=== PATIENT | male | born 1945 | race American Indian/Alaskan Native ===

== ENCOUNTER 2019-09-17 08:04 | Observation (INO) | payer MEDICARE ==
[2019-09-17 08:44] LABS: Basophils % (Auto) 0.3 % (0.0-1.8); Eosinophils % (Auto) 0.2 % (0.0-4.3); Hematocrit 36.3 % (35.5-45.6); Hemoglobin 12.3 gm/dl (11.8-15.2); Lymphocytes # (Auto) 0.5 K/mm3 (1.2-5.4); Lymphocytes % (Auto) 5.8 % (13.4-35.0); Mean Corpuscular HGB Conc 34 % (32-34); Mean Corpuscular Volume 91 fl (84-94); Monocytes # (Auto) 0.9 K/mm3 (0.0-0.8); Monocytes % (Auto) 9.4 % (0.0-7.3); Platelet Count 196 K/mm3 (140-440); Red Blood Count 3.98 M/mm3 (3.65-5.03); Red Cell Distribution Width 17.3 % (13.2-15.2)
[2019-09-17 08:54] LABS: Partial Thromboplastin Time 27.5 Sec. (24.2-36.6)
[2019-09-17 09:01] LABS: Calcium 8.7 mg/dL (8.4-10.2)
--- NOTE | 2019-09-17 09:14 | Emergency Department Report ---
ED Chest Pain HPI - General Chief Complaint: Chest Pain Stated Complaint: CHEST PAIN/N/V Time Seen by Provider: 09/17/19 08:18 Source: patient, EMS Mode of arrival: Stretcher Limitations: No Limitations - History of Present Illness Initial Comments: 73-year-old -Dutch male patient with history of WA with stent placement, open-heart surgery, kidney disease, attention, and gastric ulcers presents to the ED with complaints of coffee ground emesis and chest pain last night. Patient states vomiting started with vomiting of food contents and after several episodes of emesis began coughing up coffee ground emesis and having left sided chest pain. Patient has history of open heart surgery 3 months ago per patient. His medication nurse is Dr. Parmar, [facility]. Patient also states history of recurrent bleeding gastric ulcerspatient is unsure of GI specialist name. She states pain is a 9 out of 10 in severity and describes it as feeling like pressure and someone stepping on his chest. Patient also admits to epigastric pain and black appearing stools. Patient is on Coumadin and admits to taking ibuprofen daily MD Complaint: chest pain -: Sudden Onset: during rest Pain Location: left chest Pain Radiation: none Severity scale (0 -10): 9 Quality: pressure Consistency: constant Improves With: nothing Worsens With: nothing re: nausea, vomting. denies: dyspnea Other Symptoms: denies: cough, fever, syncope, palpitations Treatments Prior to Arrival: none - Related Data Allergies Allergy/AdvReac Type Severity Reaction Status Date / Time codeine Allergy Rash Verified 09/17/19 08:19 tramadol Allergy Rash Verified 09/17/19 08:19 Heart Score - HEART Score History: Moderately suspicious EKG: Non-specific Age: > 65 Risk factors: > 3 risk factors or hx of atherosclerotic disease Troponin: < normal limit HEART Score: 6 - Critical Actions Critical Actions: 4-6 pts:12-16.6% risk of adverse cardiac event. Should be admitted ED Review of Systems ROS: Stated complaint: CHEST PAIN/N/V Other details as noted in HPI Comment: All other systems reviewed and negative Constitutional: see HPI Eyes: denies: vision change ENT: denies: throat pain Respiratory: denies: cough, shortness of breath, SOB with exertion, SOB at rest, wheezing Cardiovascular: as per HPI, chest pain. denies: palpitations, syncope Gastrointestinal: as per HPI. denies: diarrhea Skin: denies: rash, lesions Neurological: denies: headache, weakness Psychiatric: as per HPI ED Past Medical Hx - Past Medical History Previous Medical History?: Yes Hx Hypertension: Yes Hx Heart Attack/AMI: Yes Additional medical history: gastric ulcer. ETOH - Surgical History Past Surgical History?: Yes Hx Open Heart Surgery: Yes (CABG (May 2019 @ [place])) Additional Surgical History: Neck surgery - Social History Smoking Status: Never Smoker Substance Use Type: Alcohol ED Physical Exam - General Limitations: No Limitations General appearance: alert, in no apparent distress - Head Head exam: Present: atraumatic, normocephalic - Eye Eye exam: Present: normal appearance - ENT ENT exam: Present: mucous membranes moist - Neck Neck exam: Present: normal inspection - Respiratory Respiratory exam: Present: normal lung sounds bilaterally. Absent: respiratory distress - Cardiovascular Cardiovascular Exam: Present: regular rate, normal rhythm, normal heart sounds. Absent: systolic murmur, diastolic murmur, rubs, gallop - GI/Abdominal GI/Abdominal exam: Present: soft, tenderness (epigastric), normal bowel sounds. Absent: distended, guarding, rebound, rigid, diminished bowel sounds - Rectal Rectal exam: Present: heme (+) stool. Absent: black stool, bloody stool, mass - Extremities Exam Extremities exam: Absent: tenderness, pedal edema, calf tenderness - Neurological Exam Neurological exam: Present: alert, oriented X3 - Psychiatric Psychiatric exam: Present: normal affect, normal mood - Skin Skin exam: Present: warm, dry, intact, normal color. Absent: rash ED Course Vital Signs 09/17/19 09/17/19 09/17/19 08:13 08:30 09:01 Temperature 97.6 F Pulse Rate 83 77 74 Respiratory 20 11 L 14 Rate Blood Pressure 181/82 182/81 160/86 O2 Sat by Pulse 97 100 100 Oximetry 09/17/19 09/17/19 09:31 10:00 Temperature Pulse Rate 77 Respiratory 12 Rate Blood Pressure 173/76 158/82 O2 Sat by Pulse 99 99 Oximetry ED Medical Decision Making - Lab Data Result diagrams: 09/17/19 08:31 09/17/19 08:37 Lab Results 09/17/19 09/17/19 09/17/19 Range/Units 08:31 08:31 08:37 WBC 9.3 (4.5-11.0) K/mm3 RBC 3.98 (3.65-5.03) M/mm3 Hgb 12.3 (11.8-15.2) gm/dl Hct 36.3 (35.5-45.6) % MCV 91 (84-94) fl MCH 31 (28-32) pg MCHC 34 (32-34) % RDW 17.3 H (13.2-15.2) % Plt Count 196 (140-440) K/mm3 Lymph % (Auto) 5.8 L (13.4-35.0) % [place] % (Auto) 9.4 H (0.0-7.3) % Eos % (Auto) 0.2 (0.0-4.3) % Baso % (Auto) 0.3 (0.0-1.8) % Lymph # 0.5 L (1.2-5.4) K/mm3 [place] # 0.9 H (0.0-0.8) K/mm3 Eos # 0.0 (0.0-0.4) K/mm3 Baso # 0.0 (0.0-0.1) K/mm3 Seg Neutrophils % 84.3 H (40.0-70.0) % Seg Neutrophils # 7.9 H (1.8-7.7) K/mm3 PT 12.9 (12.2-14.9) Sec. INR 1.00 (0.87-1.13) APTT 27.5 (24.2-36.6) Sec. Sodium 134 L (137-145) mmol/L Potassium 4.0 (3.6-5.0) mmol/L Chloride 94.8 L (98-107) mmol/L Carbon Dioxide 25 (22-30) mmol/L Anion Gap 18 mmol/L BUN 34 H (9-20) mg/dL Creatinine 1.7 H (0.8-1.5) mg/dL Estimated GFR 48 ml/min BUN/Creatinine Ratio 20 % Glucose 138 H (75-100) mg/dL Calcium 8.7 (8.4-10.2) mg/dL Total Bilirubin 0.70 (0.1-1.2) mg/dL AST 59 H (5-40) units/L ALT 45 (7-56) units/L Alkaline Phosphatase 57 (35-129) units/L Troponin T 0.014 (0.00-0.029) ng/mL Total Protein 7.2 (6.3-8.2) g/dL Albumin 4.0 (3.9-5) g/dL Albumin/Globulin Ratio 1.3 % Lipase 33 (13-60) units/L - Radiology Data Radiology results: report reviewed CHEST 2 VIEWS INDICATION / CLINICAL INFORMATION: left sided chest pain. COMPARISON: None available. FINDINGS: SUPPORT DEVICES: None. HEART / MEDIASTINUM: Sternotomy and CABG. Cardiac silhouette is normal in size. LUNGS / PLEURA: No significant pulmonary or pleural abnormality. No pneumothorax. ADDITIONAL FINDINGS: No significant additional findings. IMPRESSION: 1. No acute findings. - Medical Decision Making Patient here for chest pain and coffee-ground emesis. History of WA and open heart surgery 3 months ago per patient. Cassandra Developer is Dr. Parmar from [place]. Initial and repeat EKG are without acute findings. Initial troponin normal. Hemoglobin is normal. INR is below therapeutic level. Positive fecal occult with brown stools. No vomiting observed during visit today. Heart score is 6. Patient with Dr. Car, hospitalistpatient is to be admitted for further evaluation. Critical care attestation.: If time is entered above; I have spent that time in minutes in the direct care of this critically ill patient, excluding procedure time. ED Disposition Clinical Impression: Coffee ground emesis Chest pain Qualifiers: Chest pain type: other chest pain Qualified Code(s): R07.89 - Other chest pain; R07.8 - Other chest pain Disposition: 09 OP ADMIT IP TO THIS HOSP Is pt being admited?: Yes Condition: Stable Instructions: Chest Pain (ED) Referrals: PRIMARY CARE, [Primary Care Provider] - 3-5 Days
--- NOTE | 2019-09-17 09:18 | XRay Report ---
CHEST 2 VIEWS INDICATION / CLINICAL INFORMATION: left sided chest pain. COMPARISON: None available. FINDINGS: SUPPORT DEVICES: None. HEART / MEDIASTINUM: Sternotomy and CABG. Cardiac silhouette is normal in size. LUNGS / PLEURA: No significant pulmonary or pleural abnormality. No pneumothorax. ADDITIONAL FINDINGS: No significant additional findings. IMPRESSION: 1. No acute findings. Signer Name: Jayden Nickerson MD Signed: 09/17/2019 9:14 AM Workstation Name: [id number]
[2019-09-17] MEDS ORDERED: MORPHINE 2 MG/1 ML INJ IV PRN (11:19)
[2019-09-17] MEDS ORDERED: ACETAMINOPHEN 325 MG TAB PO PRN (11:19)
[2019-09-17] MEDS ORDERED: ONDANSETRON 4 MG/2 ML INJ IV PRN (11:19)
--- NOTE | 2019-09-17 11:24 | History and Physical Report ---
History of Present Illness Date of admission: 09/17/19 10:45 Chief complaint: Coffee-ground emesis History of present illness: 73-year-old man with history of DE status post stent status post CABG, chronic kidney disease, peptic ulcer disease who presents to the hospital with coffee- ground emesis and chest pain x1 day. He admits to getting drunk on tuesday, then became extremely nauseas and had 7 episodes of coffee-ground emesis associated with left-sided chest pain, Chest pain was substernal, left sided and non radiating, began after a few episodes of vomiting, /. cp has now resolved . CABG was about 3 months ago at [facility]. He has history of bleeding gastric ulcers for which he follows up with a die welder. Admits that he had quit drinking for 15 years, then started sipping a month ago due to stress, and then finally got drunk on Tuesday. -he is c/o periumbilical abdominal pain, which is burning in nature. He denies nausea at present. 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 Family history; heart disease Medications and Allergies Allergies Allergy/AdvReac Type Severity Reaction Status Date / Time codeine Allergy Rash Verified 09/17/19 08:19 tramadol Allergy Rash Verified 09/17/19 08:19 Home Medications Medication Instructions Recorded Confirmed Last Taken Type Aspirin [Aspirin BABY CHEW TAB] 81 mg PO QDAY 09/17/19 09/17/19 09/17/19 History Losartan/Hydrochlorothiazide 1 each PO QDAY 09/17/19 09/17/19 09/17/19 History [Losartan-Hctz 100-25 mg Tab] Metoprolol Xl [Metoprolol 100 mg PO QDAY 09/17/19 09/17/19 09/17/19 History SUCCINATE ER TAB] Pantoprazole [Protonix TAB] 20 mg PO QDAY 09/17/19 09/17/19 09/17/19 History Warfarin [Coumadin] 10 mg PO QDAY 09/17/19 09/17/19 09/15/19 History amLODIPine [Norvasc] 10 mg PO DAILY 09/17/19 09/17/19 09/17/19 History Review of Systems All systems: negative Constitutional: anorexia Ears, nose, mouth and throat: no ear pain Cardiovascular: chest pain Respiratory: no cough Gastrointestinal: abdominal pain, nausea, vomiting, coffee ground emesis, no diarrhea Genitourinary Male: no dysuria Rectal: no pain Musculoskeletal: no neck stiffness Integumentary: no rash Neurological: no head injury Psychiatric: no anxiety Endocrine: no cold intolerance Hematologic/Lymphatic: no easy bruising Allergic/Immunologic: no urticaria Exam - Constitutional Vitals: Temp Pulse Resp BP Pulse Ox 97.6 F 77 12 158/82 99 09/17/19 08:13 09/17/19 09:31 09/17/19 09:31 09/17/19 10:00 09/17/19 10:00 General appearance: Present: no acute distress, well-nourished, disheveled - EENT Eyes: Present: PERRL ENT: hearing intact, clear oral mucosa - Neck Neck: Present: supple, normal ROM - Respiratory Respiratory effort: normal Respiratory: bilateral: CTA - Cardiovascular Heart Sounds: Present: S1 & S2. Absent: rub, click - Extremities Extremities: pulses symmetrical, No edema Peripheral Pulses: within normal limits - Abdominal General gastrointestinal: Present: soft, tender (epigastrium), non-distended, normal bowel sounds Male genitourinary: Present: normal - Integumentary Integumentary: Present: clear, warm, dry - Musculoskeletal Musculoskeletal: gait normal, strength equal bilaterally - Psychiatric Psychiatric: appropriate mood/affect, intact judgment & insight - Neurologic Neurologic: CNII-XII intact, moves all extremities Results - Labs CBC & Chem 7: 09/17/19 08:31 09/17/19 08:37 Labs: Laboratory Last Values WBC 9.3 K/mm3 (4.5-11.0) 09/17/19 08:31 RBC 3.98 M/mm3 (3.65-5.03) 09/17/19 08:31 Hgb 12.3 gm/dl (11.8-15.2) 09/17/19 08:31 Hct 36.3 % (35.5-45.6) 09/17/19 08:31 MCV 91 fl (84-94) 09/17/19 08:31 MCH 31 pg (28-32) 09/17/19 08:31 MCHC 34 % (32-34) 09/17/19 08:31 RDW 17.3 % (13.2-15.2) H 09/17/19 08:31 Plt Count 196 K/mm3 (140-440) 09/17/19 08:31 Lymph % (Auto) 5.8 % (13.4-35.0) L 09/17/19 08:31 [place] % (Auto) 9.4 % (0.0-7.3) H 09/17/19 08:31 Eos % (Auto) 0.2 % (0.0-4.3) 09/17/19 08:31 Baso % (Auto) 0.3 % (0.0-1.8) 09/17/19 08:31 Lymph # 0.5 K/mm3 (1.2-5.4) L 09/17/19 08:31 [place] # 0.9 K/mm3 (0.0-0.8) H 09/17/19 08:31 Eos # 0.0 K/mm3 (0.0-0.4) 09/17/19 08:31 Baso # 0.0 K/mm3 (0.0-0.1) 09/17/19 08:31 Seg Neutrophils % 84.3 % (40.0-70.0) H 09/17/19 08:31 Seg Neutrophils # 7.9 K/mm3 (1.8-7.7) H 09/17/19 08:31 PT 12.9 Sec. (12.2-14.9) 09/17/19 08:31 INR 1.00 (0.87-1.13) 09/17/19 08:31 APTT 27.5 Sec. (24.2-36.6) 09/17/19 08:31 Sodium 134 mmol/L (137-145) L 09/17/19 08:37 Potassium 4.0 mmol/L (3.6-5.0) 09/17/19 08:37 Chloride 94.8 mmol/L (98-107) L 09/17/19 08:37 Carbon Dioxide 25 mmol/L (22-30) 09/17/19 08:37 Anion Gap 18 mmol/L 09/17/19 08:37 BUN 34 mg/dL (9-20) H 09/17/19 08:37 Creatinine 1.7 mg/dL (0.8-1.5) H 09/17/19 08:37 Estimated GFR 48 ml/min 09/17/19 08:37 BUN/Creatinine Ratio 20 % 09/17/19 08:37 Glucose 138 mg/dL (75-100) H 09/17/19 08:37 Calcium 8.7 mg/dL (8.4-10.2) 09/17/19 08:37 Total Bilirubin 0.70 mg/dL (0.1-1.2) 09/17/19 08:37 AST 59 units/L (5-40) H 09/17/19 08:37 ALT 45 units/L (7-56) 09/17/19 08:37 Alkaline Phosphatase 57 units/L (35-129) 09/17/19 08:37 Troponin T 0.014 ng/mL (0.00-0.029) 09/17/19 08:37 Total Protein 7.2 g/dL (6.3-8.2) 09/17/19 08:37 Albumin 4.0 g/dL (3.9-5) 09/17/19 08:37 Albumin/Globulin Ratio 1.3 % 09/17/19 08:37 Lipase 33 units/L (13-60) 09/17/19 08:37 Assessment and Plan Assessment and plan: 73-year-old man with history of CAD status post stents and CABG in May of this year who presents with 7 episodes of coffee-ground emesis. Patient has known history of peptic ulcer disease and has had GI bleed in the past. He also complained of chest pain which began after vomiting. Labs reviewed, CBC unremarkable, coags unremarkable. Chemistry shows sodium of 134 BUN of 34 and creatinine of 1.7 AST of 59. Chest x-ray no acute findings Coffee-ground emesis/upper GI bleed Hemoglobin stable, given history of peptic ulcer disease we will treat with PPI, GI consult suspect bleeding ulcer -Patient advised to abstain from alcohol -Keep n.p.o. for now. Aspirin and warfarin on hold. Essential medications converted to IV Chest pain, hx of CAd sp stent and cabg on warfarin ( has been on warfarin since his cabg Likely esophageal irritation from multiple episodes of vomiting, may also be esophageal tear. Given history of CAD with CABG and stents, cardiology consulted Troponin negative so far, follow-up serial troponins Chronic kidney disease, stage II-III Nephrology consult, avoid nephrotoxins Alcohol abuse Preventative health counseling performed for 17 minutes DVT prophylaxis SCDs and early ambulation, in light of suspected GI bleed, warfarin and asa on hold Advance Directives: Yes VTE prophylaxis?: Mechanical Plan of care discussed with patient/family: Yes
[2019-09-17] MEDS ORDERED: PANTOPRAZOLE 40 MG INJ IV SCH ×2 (12:30→22:00)
--- NOTE | 2019-09-17 12:45 | Gastroenterology Consultation ---
History of Present Illness - Reason for Consult Consult date: 09/17/19 coffee-ground emesis Requesting physician: ALEJANDRO RICO - History of Present Illness Patient is a 73 y/o male with PMH of HTN, WI/CAD (s/p CABG 05/2019 at [place]), CKD, and PUD who got drunk on Tuesday (remote hx of ETOH abuse; quit drinking for 15 yrs but started back drinking ~1 month ago due to stress) then developed N/V yesterday with emesis initially being brown in color and then turned dark black. He also c/o associated CP, epigastric pain and dark stool. GI has been consulted for coffee-ground emesis. Cardiology consult pending. This afternoon patient was resting in bed w/o acute distress. Reports feeling better with symptoms now improving and no further N/V. Denies fever, SOB, wt loss, hematemesis, dysphagia/odynophagia, diarrhea, constipation, or hematochezia. Has a hx of recurrent PUD with last EGD approximately in April of this year at [place] per pt. No hx of liver disease. Takes daily ASA, coumadin, and possibly an iron supplement at home. He also had been recently taking Ibuprofen. Past History Past Medical History: other (as per HPI) Past Surgical History: CABG, Other (neck surgery) Social history: other (alcohol). denies: smoking Family history: CAD Medications and Allergies Allergies Allergy/AdvReac Type Severity Reaction Status Date / Time codeine Allergy Rash Verified 09/17/19 08:19 tramadol Allergy Rash Verified 09/17/19 08:19 Home Medications Medication Instructions Recorded Confirmed Last Taken Type Aspirin [Aspirin BABY CHEW TAB] 81 mg PO QDAY 09/17/19 09/17/19 09/17/19 History Losartan/Hydrochlorothiazide 1 each PO QDAY 09/17/19 09/17/19 09/17/19 History [Losartan-Hctz 100-25 mg Tab] Metoprolol Xl [Metoprolol 100 mg PO QDAY 09/17/19 09/17/19 09/17/19 History SUCCINATE ER TAB] Pantoprazole [Protonix TAB] 20 mg PO QDAY 09/17/19 09/17/19 09/17/19 History Warfarin [Coumadin] 10 mg PO QDAY 09/17/19 09/17/19 09/15/19 History amLODIPine [Norvasc] 10 mg PO DAILY 09/17/19 09/17/19 09/17/19 History Active Meds: Active Medications Acetaminophen (Tylenol) 650 mg PO Q4H PRN PRN Reason: Pain MILD(1-3)/Fever >100.5/V[place]SQUEZ Dextrose/Sodium Chloride (D5/0.45ns) 1,000 mls @ 100 mls/hr IV DIRECT RONNY Morphine Sulfate (Morphine) 2 mg IV Q4H PRN PRN Reason: Pain, Moderate (4-6) Ondansetron HCl (Zofran) 4 mg IV Q8H PRN PRN Reason: Nausea And Vomiting Pantoprazole Sodium (Protonix) 40 mg IV QDAY RONNY Sodium Chloride (Sodium Chloride Flush Syringe 10 Ml) 10 ml IV BID RONNY Sodium Chloride (Sodium Chloride Flush Syringe 10 Ml) 10 ml IV PRN PRN PRN Reason: LINE FLUSH medications reviewed/updated as required Review of Systems - Review of Systems All systems: negative Cardiovascular: chest pain (substernal) Gastrointestinal: abdominal pain, nausea, vomiting, coffee ground emesis, other (dark stool) Exam - Constitutional Vital Signs: Temp Pulse Resp BP Pulse Ox 97.6 F 75 18 155/81 97 09/17/19 08:13 09/17/19 11:30 09/17/19 11:30 09/17/19 11:30 09/17/19 11:30 General appearance: no acute distress - EENT Eyes: PERRL, EOM intact ENT: hearing intact - Respiratory Respiratory effort: normal - Cardiovascular Rhythm: regular - Gastrointestinal General gastrointestinal: Present: soft, non-tender, non-distended, normal bowel sounds Rectal Exam: other (dark brown stool- supervisor claims present during exam (Shanthi CLANCY)) - Neurologic Neurological: alert and oriented x3 - Labs CBC & Chem 7: 09/17/19 08:31 09/17/19 08:37 Lab Results: Laboratory Results - last 24 hr 09/17/19 09/17/19 09/17/19 08:31 08:31 08:37 WBC 9.3 RBC 3.98 Hgb 12.3 Hct 36.3 MCV 91 MCH 31 MCHC 34 RDW 17.3 H Plt Count 196 Lymph % (Auto) 5.8 L [place] % (Auto) 9.4 H Eos % (Auto) 0.2 Baso % (Auto) 0.3 Lymph # 0.5 L [place] # 0.9 H Eos # 0.0 Baso # 0.0 Seg Neutrophils % 84.3 H Seg Neutrophils # 7.9 H PT 12.9 INR 1.00 APTT 27.5 Sodium 134 L Potassium 4.0 Chloride 94.8 L Carbon Dioxide 25 Anion Gap 18 BUN 34 H Creatinine 1.7 H Estimated GFR 48 BUN/Creatinine Ratio 20 Glucose 138 H Calcium 8.7 Total Bilirubin 0.70 AST 59 H ALT 45 Alkaline Phosphatase 57 Troponin T 0.014 Total Protein 7.2 Albumin 4.0 Albumin/Globulin Ratio 1.3 Lipase 33 09/17/19 11:59 WBC RBC Hgb Hct MCV MCH MCHC RDW Plt Count Lymph % (Auto) [place] % (Auto) Eos % (Auto) Baso % (Auto) Lymph # [place] # Eos # Baso # Seg Neutrophils % Seg Neutrophils # PT INR APTT Sodium Potassium Chloride Carbon Dioxide Anion Gap BUN Creatinine Estimated GFR BUN/Creatinine Ratio Glucose Calcium Total Bilirubin AST ALT Alkaline Phosphatase Troponin T < 0.010 Total Protein Albumin Albumin/Globulin Ratio Lipase Assessment and Plan 1.UGIB/coffee-ground emesis 2.substernal CP/epigastric pain 3.H/o recurrent PUD 4.ETOH 5.CAD (s/p CABG 05/2019) 6.CKD -afebrile -WBC and H/H WNL (12.3/36.3) -INR 1.00, plt WNL -patient reports getting drunk on Tuesday (recent relapse x ~1 month with alcohol after being quit drinking x 15 yrs) then develops N/V Tuesday with emesis initially being brown in color and then became dark black. He also had assoc iated CP, epigastric/periumbilical pain, and dark stool with symptoms now improving. No active signs of bleeding today, hematemesis or hematochezia. Rectal exam, revealed dark brown stool. -currently HD stable -etiology-possibly M-W tear vs esophagitis vs recurrent PUD vs other -no plan for EGD at this time, will consider based on clinical course/progress (would need cardiac clearance) -okay to start on clear liquids -okay to resume ASA/anticoagulation as needed per cardiology but would evaluate need for dual therapy given PUD -continue PPI and supportive care -alcohol cessation discussed/encouraged with patient -will follow
--- NOTE | 2019-09-17 15:34 | Consultation ---
History of Present Illness Consult date: 09/17/19 Requesting physician: ALEJANDRO RICO Consult reason: chest pain History of present illness: The patient is a 73 y/o male with a past medical history of CAD s/p CABG in 05/2019 at [facility], HTN, CKD, PUD, reportedly anticoagulated with coumadin for unclear reasons. He is regularly followed by [facility]ology. He reports he was drinking alcohol heavily and got drunk on Tuesday (remote hx of ETOH abuse; quit drinking for 15 yrs but started back drinking ~1 month ago due to stress) then developed N/V yesterday with emesis initially being brown in color and then turned dark black. He also c/o associated CP, epigastric pain and dark stool. Has a hx of recurrent PUD with last EGD approximately in April of this year at [facility] per pt. On evaluation, he states he is feeling much better, no current complaints. Past History Past Medical History: other (as per HPI) Past Surgical History: CABG, Other (neck surgery) Social history: other (alcohol). denies: smoking Family history: CAD Medications and Allergies Allergies Allergy/AdvReac Type Severity Reaction Status Date / Time codeine Allergy Rash Verified 09/17/19 08:19 tramadol Allergy Rash Verified 09/17/19 08:19 Home Medications Medication Instructions Recorded Confirmed Last Taken Type Aspirin [Aspirin BABY CHEW TAB] 81 mg PO QDAY 09/17/19 09/17/19 09/17/19 History Losartan/Hydrochlorothiazide 1 each PO QDAY 09/17/19 09/17/19 09/17/19 History [Losartan-Hctz 100-25 mg Tab] Metoprolol Xl [Metoprolol 100 mg PO QDAY 09/17/19 09/17/19 09/17/19 History SUCCINATE ER TAB] Pantoprazole [Protonix TAB] 20 mg PO QDAY 09/17/19 09/17/19 09/17/19 History Warfarin [Coumadin] 10 mg PO QDAY 09/17/19 09/17/19 09/15/19 History amLODIPine [Norvasc] 10 mg PO DAILY 09/17/19 09/17/19 09/17/19 History Active Meds: Active Medications Acetaminophen (Tylenol) 650 mg PO Q4H PRN PRN Reason: Pain MILD(1-3)/Fever >100.5/VÁSQUEZ Dextrose/Sodium Chloride (D5/0.45ns) 1,000 mls @ 100 mls/hr IV DIRECT RONNY Morphine Sulfate (Morphine) 2 mg IV Q4H PRN PRN Reason: Pain, Moderate (4-6) Ondansetron HCl (Zofran) 4 mg IV Q8H PRN PRN Reason: Nausea And Vomiting Pantoprazole Sodium (Protonix) 40 mg IV BID RONNY Sodium Chloride (Sodium Chloride Flush Syringe 10 Ml) 10 ml IV BID RONNY Sodium Chloride (Sodium Chloride Flush Syringe 10 Ml) 10 ml IV PRN PRN PRN Reason: LINE FLUSH Review of Systems Constitutional: no weight loss, no weight gain, no fever, no chills, no sweats Ears, nose, mouth and throat: no ear pain, no nose pain, no sinus pressure, no sinus pain Cardiovascular: chest pain, no orthopnea, no palpitations, no rapid/irregular heart beat, no edema, no syncope, no lightheadedness, no shortness of breath, no dyspnea on exertion Respiratory: no cough, no shortness of breath, no dyspnea on exertion, no congestion, no wheezing, no pain on inspiration Gastrointestinal: nausea, vomiting, melena, hematochezia, no abdominal pain Genitourinary Male: no dysuria, no hematuria, no flank pain, no discharge, no urinary frequency, no urinary hesitancy Musculoskeletal: no neck stiffness, no neck pain, no shooting arm pain, no arm numbness/tingling, no low back pain, no shooting leg pain Integumentary: no rash, no pruritis, no redness, no sores, no wounds Neurological: no head injury, no paralysis, no weakness, no parathesias, no numbness, no tingling, no seizures, no syncope Psychiatric: no anxiety Endocrine: no cold intolerance, no heat intolerance Hematologic/Lymphatic: no easy bruising, no easy bleeding Allergic/Immunologic: no urticaria, no wheezing Physical Examination Vital Signs Temp Pulse Resp BP Pulse Ox 97.6 F 83 20 181/82 97 09/17/19 08:13 09/17/19 08:13 09/17/19 08:13 09/17/19 08:13 09/17/19 08:13 General appearance: no acute distress HEENT: Positive: PERRL, Normocephaly, Mucus Membranes Moist Neck: Positive: neck supple, trachea midline Cardiac: Positive: Reg Rate and Rhythm, S1/S2 Lungs: Positive: Decreased Breath Sounds Neuro: Positive: Grossly Intact Abdomen: Negative: Tender Skin: Negative: Rash Musculoskeletal: No Pain Extremities: Absent: edema Results 09/17/19 08:31 09/17/19 08:37 Cardiac Enzymes 09/17/19 Range/Units 08:37 AST 59 H (5-40) units/L Coagulation 09/17/19 Range/Units 08:31 PT 12.9 (12.2-14.9) Sec. INR 1.00 (0.87-1.13) APTT 27.5 (24.2-36.6) Sec. CBC 09/17/19 Range/Units 08:31 WBC 9.3 (4.5-11.0) K/mm3 RBC 3.98 (3.65-5.03) M/mm3 Hgb 12.3 (11.8-15.2) gm/dl Hct 36.3 (35.5-45.6) % Plt Count 196 (140-440) K/mm3 Lymph # 0.5 L (1.2-5.4) K/mm3 [place] # 0.9 H (0.0-0.8) K/mm3 Eos # 0.0 (0.0-0.4) K/mm3 Baso # 0.0 (0.0-0.1) K/mm3 Comprehensive Metabolic Panel 09/17/19 Range/Units 08:37 Sodium 134 L (137-145) mmol/L Potassium 4.0 (3.6-5.0) mmol/L Chloride 94.8 L (98-107) mmol/L Carbon Dioxide 25 (22-30) mmol/L BUN 34 H (9-20) mg/dL Creatinine 1.7 H (0.8-1.5) mg/dL Glucose 138 H (75-100) mg/dL Calcium 8.7 (8.4-10.2) mg/dL AST 59 H (5-40) units/L ALT 45 (7-56) units/L Alkaline Phosphatase 57 (35-129) units/L Total Protein 7.2 (6.3-8.2) g/dL Albumin 4.0 (3.9-5) g/dL - Imaging and Cardiology Echo: pending EKG: report reviewed, image reviewed EKG interpretations - Telemetry EKG Rhythm: Sinus Rhythm - EKG Sinus rhythms and dysrhythmias: sinus rhythm Assessment and Plan Currently stable cardiac status. Pt is at moderate cardiovascular risk for endoscopy. There are no immediate cardiac contraindications to proceeding with endoscopy at this time. Pt was reportedly taking coumadin at home for unclear reasons, although admissi on INR was normal. Agree with holding coumadin at this time. Obtain echo. Will attempt to obtain medical records from [facility] - medical records have been requested. The patient has been seen in conjunction with Dr. MARIAELENA Lira who agrees with the assessment and plan of care. - Patient Problems (1) Chest pain Current Visit: Yes Status: Resolved Qualifiers: Chest pain type: other chest pain Qualified Code(s): R07.89 - Other chest pain; R07.8 - Other chest pain (2) GI bleed Current Visit: Yes Status: Acute (3) CAD (coronary artery disease) Current Visit: Yes Status: Chronic (4) History of coronary artery bypass graft Current Visit: Yes Status: Chronic (5) MIKAEL (acute kidney injury) Current Visit: Yes Status: Acute (6) Alcohol use Current Visit: Yes Status: Acute (7) Peptic ulcer Current Visit: Yes Status: Chronic
--- NOTE | 2019-09-17 20:09 | Event Note ---
Nonadherence. Patient claims he is adherent to warfarin. But his INR is 1. Highly suspect that this patient is not taking any of his medications at home. Patient was counseled on improved adherence to his medications.
[2019-09-18] MEDS: D5W/0.45% NACL 1,000 ML IV SCH ×2 (02:07→22:22)
--- NOTE | 2019-09-18 07:39 | Progress Note ---
Assessment and Plan Assessment and plan: 73-year-old man with history of CAD status post stents and CABG in May of this year who presents with 7 episodes of coffee-ground emesis. Patient has known history of peptic ulcer disease and has had GI bleed in the past. He also complained of chest pain which began after vomiting. Labs reviewed, CBC unremarkable, coags unremarkable. Chemistry shows sodium of 134 BUN of 34 and creatinine of 1.7 AST of 59. Chest x-ray no acute findings Coffee-ground emesis/upper GI bleed Hemoglobin stable, given history of peptic ulcer disease we will treat with PPI, GI evaluation noted Possible Surgery tomorrow. Continue Protonix and Closely monitor H&H, s upportive care History of chronic alcohol use advised to quit alcohol intake Chest pain, hx of CAd sp stent and cabg on warfarin ( has been on warfarin since his cabg Likely esophageal irritation from multiple episodes of vomiting, may also be e sophageal tear. Given history of CAD with CABG and stents, cardiology consulted Troponin negative so far, follow-up serial troponins Chronic kidney disease, stage II-III Nephrology consult, avoid nephrotoxins Alcohol abuse Preventative health counseling performed for 17 minutes DVT prophylaxis SCDs and early ambulation, in light of suspected GI bleed, warfarin and asa on hold Advance Directives: Yes VTE prophylaxis?: Mechanical Plan of care discussed with patient/family: Yes History Interval history: Patient seen and examined medical records reviewed Patient feels slightly better no new episodes of bleeding Alert awake oriented 3 Vital signs noted stable Hospitalist Physical - Constitutional Vitals: Temp Pulse Resp BP Pulse Ox 98.7 F 77 20 177/85 96 09/18/19 03:49 09/18/19 03:49 09/18/19 03:49 09/18/19 03:49 09/18/19 03:49 General appearance: Present: no acute distress, well-nourished - EENT Eyes: Present: PERRL, EOM intact - Neck Neck: Present: supple, normal ROM - Respiratory Respiratory effort: normal Respiratory: bilateral: diminished, negative: rales, rhonchi, wheezing - Cardiovascular Rhythm: regular Heart Sounds: Present: S1 & S2 - Extremities Extremities: no ischemia, No edema - Abdominal General gastrointestinal: soft, non-tender, non-distended, normal bowel sounds - Integumentary Integumentary: Present: clear, warm - Psychiatric Psychiatric: appropriate mood/affect, cooperative - Neurologic Neurologic: CNII-XII intact, moves all extremities Results - Labs CBC & Chem 7: 09/18/19 07:14 09/18/19 07:14 Labs: Laboratory Last Values WBC 9.3 K/mm3 (4.5-11.0) 09/17/19 08:31 RBC 3.98 M/mm3 (3.65-5.03) 09/17/19 08:31 Hgb 12.3 gm/dl (11.8-15.2) 09/17/19 08:31 Hct 36.3 % (35.5-45.6) 09/17/19 08:31 MCV 91 fl (84-94) 09/17/19 08:31 MCH 31 pg (28-32) 09/17/19 08:31 MCHC 34 % (32-34) 09/17/19 08:31 RDW 17.3 % (13.2-15.2) H 09/17/19 08:31 Plt Count 196 K/mm3 (140-440) 09/17/19 08:31 Lymph % (Auto) 5.8 % (13.4-35.0) L 09/17/19 08:31 [place] % (Auto) 9.4 % (0.0-7.3) H 09/17/19 08:31 Eos % (Auto) 0.2 % (0.0-4.3) 09/17/19 08:31 Baso % (Auto) 0.3 % (0.0-1.8) 09/17/19 08:31 Lymph # 0.5 K/mm3 (1.2-5.4) L 09/17/19 08:31 [place] # 0.9 K/mm3 (0.0-0.8) H 09/17/19 08:31 Eos # 0.0 K/mm3 (0.0-0.4) 09/17/19 08:31 Baso # 0.0 K/mm3 (0.0-0.1) 09/17/19 08:31 Seg Neutrophils % 84.3 % (40.0-70.0) H 09/17/19 08:31 Seg Neutrophils # 7.9 K/mm3 (1.8-7.7) H 09/17/19 08:31 PT 12.9 Sec. (12.2-14.9) 09/17/19 08:31 INR 1.00 (0.87-1.13) 09/17/19 08:31 APTT 27.5 Sec. (24.2-36.6) 09/17/19 08:31 Sodium 134 mmol/L (137-145) L 09/17/19 08:37 Potassium 4.0 mmol/L (3.6-5.0) 09/17/19 08:37 Chloride 94.8 mmol/L (98-107) L 09/17/19 08:37 Carbon Dioxide 25 mmol/L (22-30) 09/17/19 08:37 Anion Gap 18 mmol/L 09/17/19 08:37 BUN 34 mg/dL (9-20) H 09/17/19 08:37 Creatinine 1.7 mg/dL (0.8-1.5) H 09/17/19 08:37 Estimated GFR 48 ml/min 09/17/19 08:37 BUN/Creatinine Ratio 20 % 09/17/19 08:37 Glucose 138 mg/dL (75-100) H 09/17/19 08:37 Calcium 8.7 mg/dL (8.4-10.2) 09/17/19 08:37 Total Bilirubin 0.70 mg/dL (0.1-1.2) 09/17/19 08:37 AST 59 units/L (5-40) H 09/17/19 08:37 ALT 45 units/L (7-56) 09/17/19 08:37 Alkaline Phosphatase 57 units/L (35-129) 09/17/19 08:37 Troponin T < 0.010 ng/mL (0.00-0.029) 09/17/19 11:59 Total Protein 7.2 g/dL (6.3-8.2) 09/17/19 08:37 Albumin 4.0 g/dL (3.9-5) 09/17/19 08:37 Albumin/Globulin Ratio 1.3 % 09/17/19 08:37 Lipase 33 units/L (13-60) 09/17/19 08:37 Active Medications - Current Medications Current Medications: Generic Name Dose Route Start Last Admin Trade Name Freq PRN Reason Stop Dose Admin Acetaminophen 650 mg 09/17/19 11:19 Tylenol PO Q4H PRN Pain MILD(1-3)/Fever >100.5/VÁSQUEZ Dextrose/Sodium Chloride 1,000 mls @ 100 mls/hr 09/17/19 12:30 09/18/19 02:07 D5/0.45ns IV 100 mls/hr DIRECT RONNY Administration Morphine Sulfate 2 mg 09/17/19 11:19 Morphine IV Q4H PRN Pain, Moderate (4-6) Ondansetron HCl 4 mg 09/17/19 11:19 Zofran IV Q8H PRN Nausea And Vomiting Pantoprazole Sodium 40 mg 09/17/19 22:00 09/17/19 21:01 Protonix IV 40 mg BID RONNY Administration Sodium Chloride 10 ml 09/17/19 22:00 09/17/19 21:01 Sodium Chloride Flush Syringe 10 Ml IV 10 ml BID RONNY Administration Sodium Chloride 10 ml 09/17/19 11:19 Sodium Chloride Flush Syringe 10 Ml IV PRN PRN LINE FLUSH
[2019-09-18 07:45] LABS: Basophils % (Auto) 0.7 % (0.0-1.8); Eosinophils # (Auto) 0.1 K/mm3 (0.0-0.4); Eosinophils % (Auto) 1.4 % (0.0-4.3); Hematocrit 37.6 % (35.5-45.6); Hemoglobin 12.6 gm/dl (11.8-15.2); Lymphocytes # (Auto) 1.1 K/mm3 (1.2-5.4); Lymphocytes % (Auto) 19.5 % (13.4-35.0); Mean Corpuscular HGB Conc 34 % (32-34); Mean Corpuscular Volume 93 fl (84-94); Monocytes # (Auto) 0.8 K/mm3 (0.0-0.8); Monocytes % (Auto) 14.8 % (0.0-7.3); Platelet Count 183 K/mm3 (140-440); Red Blood Count 4.06 M/mm3 (3.65-5.03); Red Cell Distribution Width 17.5 % (13.2-15.2)
[2019-09-18 08:12] LABS: BUN/Creatinine Ratio 20; Blood Urea Nitrogen 26 mg/dL (9-20); Calcium 8.3 mg/dL (8.4-10.2); Hemolysis Index 27
[2019-09-18] MEDS: PANTOPRAZOLE 40 MG TAB PO SCH ×2 (10:39→22:18)
--- NOTE | 2019-09-18 11:23 | Consultation ---
History of Present Illness - Reason for Consult Consult date: 09/18/19 acute renal failure Requesting physician: ALEJANDRO RICO - History of Present Illness This is a 73 yo AAM with past medical history of CAD s/p CABG, chronic kidney disease, peptic ulcer disease who presents to the hospital with coffee-ground emesis and chest pain x1 day. He admits binge ETOH on Tuesday, then became extremely nauseas and had 7 episodes of coffee-ground emesis associated with left-sided chest pain, chest pain was substernal, left sided and non radiating, began after a few episodes of vomiting, 03/07. cp has now resolved . CABG was about 3 months ago at [facility]. He has history of bleeding gastric ulcers for which he follows up with a product sales representative. Labs showed elevated BUN/cr at 34/1.7 mg/dl for which renal consult is requested Past History Past Medical History: other (as per HPI) Past Surgical History: CABG, Other (neck surgery) Social history: other (alcohol). denies: smoking Family history: CAD Medications and Allergies Allergies Allergy/AdvReac Type Severity Reaction Status Date / Time codeine Allergy Rash Verified 09/17/19 08:19 tramadol Allergy Rash Verified 09/17/19 08:19 Home Medications Medication Instructions Recorded Confirmed Last Taken Type Aspirin [Aspirin BABY CHEW TAB] 81 mg PO QDAY 09/17/19 09/17/19 09/17/19 History Losartan/Hydrochlorothiazide 1 each PO QDAY 09/17/19 09/17/19 09/17/19 History [Losartan-Hctz 100-25 mg Tab] Metoprolol Xl [Metoprolol 100 mg PO QDAY 09/17/19 09/17/19 09/17/19 History SUCCINATE ER TAB] Pantoprazole [Protonix TAB] 20 mg PO QDAY 09/17/19 09/17/19 09/17/19 History Warfarin [Coumadin] 10 mg PO QDAY 09/17/19 09/17/19 09/15/19 History amLODIPine [Norvasc] 10 mg PO DAILY 09/17/19 09/17/19 09/17/19 History Active Meds: Active Medications Acetaminophen (Tylenol) 650 mg PO Q4H PRN PRN Reason: Pain MILD(1-3)/Fever >100.5/VÁSQUEZ Dextrose/Sodium Chloride (D5/0.45ns) 1,000 mls @ 100 mls/hr IV DIRECT [facility] Last Admin: 09/18/19 02:07 Dose: 100 mls/hr Documented by: Morphine Sulfate (Morphine) 2 mg IV Q4H PRN PRN Reason: Pain, Moderate (4-6) Ondansetron HCl (Zofran) 4 mg IV Q8H PRN PRN Reason: Nausea And Vomiting Pantoprazole Sodium (Protonix) 40 mg PO BID [facility] Last Admin: 09/18/19 10:39 Dose: 40 mg Documented by: Sodium Chloride (Sodium Chloride Flush Syringe 10 Ml) 10 ml IV BID [facility] Last Admin: 09/18/19 10:40 Dose: 10 ml Documented by: Sodium Chloride (Sodium Chloride Flush Syringe 10 Ml) 10 ml IV PRN PRN PRN Reason: LINE FLUSH Review of Systems All systems: negative Constitutional: fatigue, weakness Gastrointestinal: abdominal pain, nausea, vomiting Exam - Vital Signs Vital signs: Vital Signs Temp Pulse Resp BP Pulse Ox 97.6 F 83 20 181/82 97 09/17/19 08:13 09/17/19 08:13 09/17/19 08:13 09/17/19 08:13 09/17/19 08:13 - General Appearance General appearance: well-developed, well-nourished, appears stated age EENT: ATNC, PERRL, mucous membranes moist Neck: Present: neck supple Respiratory: Clear to Ascultation Heart: regular, S1S2 Gastrointestinal: Present: normoactive bowel sounds Integumentary: no rash, other (no edema ) Neurologic: no focal deficit, alert and oriented x3, strength 5/5, CN 3-12 intact Psychiatric: mood/affect appropriate, cooperative Results - Lab Results 09/18/19 07:14 09/18/19 07:14 Most recent lab results Calcium 8.3 mg/dL (8.4-10.2) L 09/18/19 07:14 Assessment and Plan - Patient Problems (1) MIKAEL (acute kidney injury) Current Visit: Yes Status: Acute Plan to address problem: likely secondary to pre-renal azotemia in the setting of n/v. Cr improved to 1.3mg/dl with IVF, stable for discharge from renal stand point with outpatient CKD f/u (2) Coffee ground emesis Current Visit: Yes Status: Acute Plan to address problem: Hb stable > 12, follow GI recommendations (3) CAD (coronary artery disease) Current Visit: Yes Status: Chronic Plan to address problem: without active chest agustín n (4) Alcohol use Current Visit: Yes Status: Acute
--- NOTE | 2019-09-18 13:04 | Gastroenterology Progress Note ---
Assessment and Plan 1.UGIB/coffee-ground emesis 2.substernal CP/epigastric pain 3.H/o recurrent PUD 4.ETOH 5.CAD (s/p CABG 05/2019) 6.CKD -afebrile -WBC WNL -INR 1.00, plt WNL -H/H WNL (12.6/37.6)-stable -no active signs of bleeding overnight or this am -etiology-likely M-W tear from recent ETOH binge vs esophagitis vs recurrent PUD vs other -clinically, patient is stable. Denies abd pain or N/v. Tolerating diet. -will schedule for EGD tomorrow for further evaluation as requested per cardiology given need for anticoagulation -NPO after MN -continue PPI and supportive care -alcohol cessation discussed/encouraged with patient -will follow Subjective Date of service: 09/18/19 Principal diagnosis: coffee-ground emesis Interval history: No acute distress or active signs of bleeding overnight or this am. Denies abd pain or N/V. Tolerating diet. Objective - Constitutional Vitals: Temp Pulse Resp BP Pulse Ox 97.9 F 78 18 162/91 100 09/18/19 11:40 09/18/19 11:40 09/18/19 11:40 09/18/19 11:40 09/18/19 11:40 General appearance: no acute distress - EENT Eyes: PERRL, EOM intact ENT: hearing intact - Respiratory Respiratory effort: normal Respiratory: bilateral: CTA - Cardiovascular Rhythm: regular - Gastrointestinal General gastrointestinal: Present: soft, non-tender, non-distended, normal bowel sounds - Neurologic Neurological: alert and oriented x3 - Labs CBC & Chem 7: 09/18/19 07:14 09/18/19 07:14 Labs: Laboratory Results - last 24 hr 09/18/19 09/18/19 07:14 07:14 WBC 5.6 RBC 4.06 Hgb 12.6 Hct 37.6 MCV 93 MCH 31 MCHC 34 RDW 17.5 H Plt Count 183 Lymph % (Auto) 19.5 [place] % (Auto) 14.8 H Eos % (Auto) 1.4 Baso % (Auto) 0.7 Lymph # 1.1 L [place] # 0.8 Eos # 0.1 Baso # 0.0 Seg Neutrophils % 63.6 Seg Neutrophils # 3.5 Sodium 134 L Potassium 4.0 Chloride 97.6 L Carbon Dioxide 24 Anion Gap 16 BUN 26 H Creatinine 1.3 Estimated GFR > 60 BUN/Creatinine Ratio 20 Glucose 109 H Calcium 8.3 L
--- NOTE | 2019-09-18 14:11 | Progress Note ---
Assessment and Plan [facility] records obtained - pt has h/o paroxysmal atrial fibrillation and was discharged on Xarelto. Also per [facility] records, pt is noted to have h/o recurrent GI bleed. We believe pt would benefit from endoscopy as it appears that he will require halfway systemic AC in regards to PAfib. D/w Dr. Ospina who will plan for endoscopy tomorrow as pt has already eaten today. Await findings and GI recs regarding systemic AC and antiplatelet therapy. Echo reviewed - EF 35-40%, mild to mod LVH, abnormal diastolic function, mild MR. Currently stable cardiac status. Pt is at moderate cardiovascular risk for endoscopy. There are no immediate cardiac contraindications to proceeding with endoscopy at this time. The patient has been seen in conjunction with Dr. MARIAELENA Lira who agrees with the assessment and plan of care. - Patient Problems (1) Chest pain Current Visit: Yes Status: Resolved Qualifiers: Chest pain type: other chest pain Qualified Code(s): R07.89 - Other chest pain; R07.8 - Other chest pain (2) GI bleed Current Visit: Yes Status: Acute (3) CAD (coronary artery disease) Current Visit: Yes Status: Chronic (4) History of coronary artery bypass graft Current Visit: Yes Status: Chronic (5) MIKAEL (acute kidney injury) Current Visit: Yes Status: Acute (6) Alcohol use Current Visit: Yes Status: Acute (7) Peptic ulcer Current Visit: Yes Status: Chronic (8) Ischemic cardiomyopathy Current Visit: Yes Status: Chronic (9) Paroxysmal atrial fibrillation Current Visit: Yes Status: Chronic Subjective Date of service: 09/18/19 Principal diagnosis: coffee-ground emesis Interval history: pt resting in bed, no current complaints. in SR on tele with no acute events overnight. Objective Last Vital Signs Temp 97.9 F 09/18/19 11:40 Pulse 78 09/18/19 11:40 Resp 18 09/18/19 11:40 BP 162/91 09/18/19 11:40 Pulse Ox 100 09/18/19 11:40 - Physical Examination General: No Apparent Distress HEENT: Positive: PERRL, Normocephaly, Mucus Membranes Moist Neck: Positive: neck supple Cardiac: Positive: Reg Rate and Rhythm, S1/S2 Lungs: Positive: Decreased Breath Sounds Neuro: Positive: Grossly Intact Abdomen: Negative: Tender Skin: Negative: Rash Musculoskeletal: No Pain Extremities: Absent: edema - Labs and Meds CBC 09/18/19 Range/Units 07:14 WBC 5.6 (4.5-11.0) K/mm3 RBC 4.06 (3.65-5.03) M/mm3 Hgb 12.6 (11.8-15.2) gm/dl Hct 37.6 (35.5-45.6) % Plt Count 183 (140-440) K/mm3 Lymph # 1.1 L (1.2-5.4) K/mm3 [place] # 0.8 (0.0-0.8) K/mm3 Eos # 0.1 (0.0-0.4) K/mm3 Baso # 0.0 (0.0-0.1) K/mm3 Comprehensive Metabolic Panel 09/18/19 Range/Units 07:14 Sodium 134 L (137-145) mmol/L Potassium 4.0 (3.6-5.0) mmol/L Chloride 97.6 L (98-107) mmol/L Carbon Dioxide 24 (22-30) mmol/L BUN 26 H (9-20) mg/dL Creatinine 1.3 (0.8-1.5) mg/dL Glucose 109 H (75-100) mg/dL Calcium 8.3 L (8.4-10.2) mg/dL - Imaging and Cardiology EKG: report reviewed, image reviewed Echo: pending - EKG Sinus rhythms and dysrhythmias: sinus rhythm
[2019-09-19 05:01] LABS: Basophils # (Auto) 0.1 K/mm3 (0.0-0.1); Basophils % (Auto) 0.9 % (0.0-1.8); Eosinophils # (Auto) 0.1 K/mm3 (0.0-0.4); Eosinophils % (Auto) 2.1 % (0.0-4.3); Hematocrit 37.2 % (35.5-45.6); Hemoglobin 12.5 gm/dl (11.8-15.2); Lymphocytes # (Auto) 1.3 K/mm3 (1.2-5.4); Lymphocytes % (Auto) 22.6 % (13.4-35.0); Mean Corpuscular HGB Conc 34 % (32-34); Mean Corpuscular Volume 93 fl (84-94); Monocytes # (Auto) 0.9 K/mm3 (0.0-0.8); Monocytes % (Auto) 15.5 % (0.0-7.3); Platelet Count 184 K/mm3 (140-440); Red Blood Count 4.01 M/mm3 (3.65-5.03); Red Cell Distribution Width 17.7 % (13.2-15.2)
[2019-09-19] MEDS: PANTOPRAZOLE 40 MG TAB PO SCH (09:40)
[2019-09-19] MEDS ORDERED: SODIUM CHLORIDE 0.9% 1000 ML 1,000 ML IV SCH (10:00)
--- NOTE | 2019-09-19 10:36 | Progress Note ---
Hospitalist Physical - Constitutional Vitals: Temp Pulse Resp BP Pulse Ox 98.2 F 79 18 164/86 99 09/19/19 07:03 09/19/19 03:52 09/19/19 07:26 09/19/19 07:03 09/19/19 03:52 General appearance: Present: no acute distress, well-nourished Results - Labs CBC & Chem 7: 09/19/19 04:29 09/18/19 07:14 Labs: Laboratory Last Values WBC 5.9 K/mm3 (4.5-11.0) 09/19/19 04:29 RBC 4.01 M/mm3 (3.65-5.03) 09/19/19 04:29 Hgb 12.5 gm/dl (11.8-15.2) 09/19/19 04:29 Hct 37.2 % (35.5-45.6) 09/19/19 04:29 MCV 93 fl (84-94) 09/19/19 04:29 MCH 31 pg (28-32) 09/19/19 04:29 MCHC 34 % (32-34) 09/19/19 04:29 RDW 17.7 % (13.2-15.2) H 09/19/19 04:29 Plt Count 184 K/mm3 (140-440) 09/19/19 04:29 Lymph % (Auto) 22.6 % (13.4-35.0) 09/19/19 04:29 [place] % (Auto) 15.5 % (0.0-7.3) H 09/19/19 04:29 Eos % (Auto) 2.1 % (0.0-4.3) 09/19/19 04:29 Baso % (Auto) 0.9 % (0.0-1.8) 09/19/19 04:29 Lymph # 1.3 K/mm3 (1.2-5.4) 09/19/19 04:29 [place] # 0.9 K/mm3 (0.0-0.8) H 09/19/19 04:29 Eos # 0.1 K/mm3 (0.0-0.4) 09/19/19 04:29 Baso # 0.1 K/mm3 (0.0-0.1) 09/19/19 04:29 Seg Neutrophils % 58.9 % (40.0-70.0) 09/19/19 04:29 Seg Neutrophils # 3.5 K/mm3 (1.8-7.7) 09/19/19 04:29 PT 12.9 Sec. (12.2-14.9) 09/17/19 08:31 INR 1.00 (0.87-1.13) 09/17/19 08:31 APTT 27.5 Sec. (24.2-36.6) 09/17/19 08:31 Sodium 134 mmol/L (137-145) L 09/18/19 07:14 Potassium 4.0 mmol/L (3.6-5.0) 09/18/19 07:14 Chloride 97.6 mmol/L (98-107) L 09/18/19 07:14 Carbon Dioxide 24 mmol/L (22-30) 09/18/19 07:14 Anion Gap 16 mmol/L 09/18/19 07:14 BUN 26 mg/dL (9-20) H 09/18/19 07:14 Creatinine 1.3 mg/dL (0.8-1.5) 09/18/19 07:14 Estimated GFR > 60 ml/min 09/18/19 07:14 BUN/Creatinine Ratio 20 % 09/18/19 07:14 Glucose 109 mg/dL (75-100) H 09/18/19 07:14 Calcium 8.3 mg/dL (8.4-10.2) L 09/18/19 07:14 Total Bilirubin 0.70 mg/dL (0.1-1.2) 09/17/19 08:37 AST 59 units/L (5-40) H 09/17/19 08:37 ALT 45 units/L (7-56) 09/17/19 08:37 Alkaline Phosphatase 57 units/L (35-129) 09/17/19 08:37 Troponin T < 0.010 ng/mL (0.00-0.029) 09/17/19 11:59 Total Protein 7.2 g/dL (6.3-8.2) 09/17/19 08:37 Albumin 4.0 g/dL (3.9-5) 09/17/19 08:37 Albumin/Globulin Ratio 1.3 % 09/17/19 08:37 Lipase 33 units/L (13-60) 09/17/19 08:37 Active Medications - Current Medications Current Medications: Generic Name Dose Route Start Last Admin Trade Name [place] PRN Reason Stop Dose Admin Acetaminophen 650 mg 09/17/19 11:19 Tylenol PO Q4H PRN Pain MILD(1-3)/Fever >100.5/VÁSQUEZ Sodium Chloride 1,000 mls @ 50 mls/hr 09/19/19 10:00 Nacl 0.9% 1000 Ml IV DIRECT RONNY Morphine Sulfate 2 mg 09/17/19 11:19 09/19/19 06:56 Morphine IV 2 mg Q4H PRN Administration Pain, Moderate (4-6) Ondansetron HCl 4 mg 09/17/19 11:19 Zofran IV Q8H PRN Nausea And Vomiting Pantoprazole Sodium 40 mg 09/18/19 10:00 09/19/19 09:40 Protonix PO 40 mg BID RONNY Administration Sodium Chloride 10 ml 09/17/19 22:00 09/18/19 22:18 Sodium Chloride Flush Syringe 10 Ml IV 10 ml BID RONNY Administration Sodium Chloride 10 ml 09/17/19 11:19 Sodium Chloride Flush Syringe 10 Ml IV PRN PRN LINE FLUSH
--- NOTE | 2019-09-19 11:07 | Progress Note ---
Assessment and Plan - Patient Problems (1) MIKAEL (acute kidney injury) Current Visit: Yes Status: Acute Plan to address problem: likely secondary to pre-renal azotemia in the setting of n/v. Cr improved to 1.3mg/dl with IVF, stable for discharge from renal stand point with outpatient CKD f/u (2) Coffee ground emesis Current Visit: Yes Status: Acute Plan to address problem: Hb stable > 12, follow GI recommendations (3) CAD (coronary artery disease) Current Visit: Yes Status: Chronic Plan to address problem: without active chest agustín n (4) Alcohol use Current Visit: Yes Status: Acute Subjective Date of service: 09/19/19 Principal diagnosis: coffee-ground emesis Interval history: Pt awake, alert, ambulating in room without acute complaints Objective - Vital Signs Vital signs: Vital Signs - 12hr 09/18/19 09/19/19 09/19/19 23:54 03:52 06:56 Temperature 98.3 F 98.0 F Pulse Rate 77 79 Respiratory 18 18 18 Rate Blood Pressure 139/84 154/79 O2 Sat by Pulse 99 99 Oximetry 09/19/19 09/19/19 07:03 07:26 Temperature 98.2 F Pulse Rate Respiratory 18 18 Rate Blood Pressure 164/86 O2 Sat by Pulse Oximetry - General Appearance General appearance: well-developed, well-nourished, appears stated age EENT: ATNC, PERRL, mucous membranes moist Neck: no JVD Respiratory: Present: Clear to Ascultation Cardiology: regular, S1S2 Gastrointestinal: normoactive bowel sounds Integumentary: no rash, other (no edema ) Neurologic: no focal deficit, alert and oriented x3, strength 5/5, CN 3-12 intact Psychiatric: mood/affect appropriate, cooperative - Lab 09/19/19 04:29 09/18/19 07:14 Most recent lab results Calcium 8.3 mg/dL (8.4-10.2) L 09/18/19 07:14 Medications & Allergies - Medications Allergies/Adverse Reactions: Allergies codeine Allergy (Verified 09/17/19 08:19) Rash tramadol Allergy (Verified 09/17/19 08:19) Rash Home Medications: Home Medications Medication Instructions Recorded Confirmed Last Taken Type Aspirin [Aspirin BABY CHEW TAB] 81 mg PO QDAY 09/17/19 09/17/19 09/17/19 History Losartan/Hydrochlorothiazide 1 each PO QDAY 09/17/19 09/17/19 09/17/19 History [Losartan-Hctz 100-25 mg Tab] Metoprolol Xl [Metoprolol 100 mg PO QDAY 09/17/19 09/17/19 09/17/19 History SUCCINATE ER TAB] Pantoprazole [Protonix TAB] 20 mg PO QDAY 09/17/19 09/17/19 09/17/19 History Warfarin [Coumadin] 10 mg PO QDAY 09/17/19 09/17/19 09/15/19 History amLODIPine [Norvasc] 10 mg PO DAILY 09/17/19 09/17/19 09/17/19 History Active Medications: Generic Name Dose Route Start Last Admin Trade Name Freq PRN Reason Stop Dose Admin Acetaminophen 650 mg 09/17/19 11:19 Tylenol PO Q4H PRN Pain MILD(1-3)/Fever >100.5/VÁSQUEZ Sodium Chloride 1,000 mls @ 50 mls/hr 09/19/19 10:00 Nacl 0.9% 1000 Ml IV DIRECT RONNY Morphine Sulfate 2 mg 09/17/19 11:19 09/19/19 06:56 Morphine IV 2 mg Q4H PRN Administration Pain, Moderate (4-6) Ondansetron HCl 4 mg 09/17/19 11:19 Zofran IV Q8H PRN Nausea And Vomiting Pantoprazole Sodium 40 mg 09/18/19 10:00 09/19/19 09:40 Protonix PO 40 mg BID RONNY Administration Sodium Chloride 10 ml 09/17/19 22:00 09/18/19 22:18 Sodium Chloride Flush Syringe 10 Ml IV 10 ml BID RONNY Administration Sodium Chloride 10 ml 09/17/19 11:19 Sodium Chloride Flush Syringe 10 Ml IV PRN PRN LINE FLUSH
[2019-09-19 12:11] VITALS: BP 172/92
--- NOTE | 2019-09-19 12:59 | Discharge Summary ---
Providers - Providers Date of Admission: 09/17/19 10:45 Date of discharge: 09/19/19 Attending physician: KANDIS MONTERO 09/17/19 Consult to Cardiac Rehabilitation [CONS] Routine Reason For Exam: Phase I 09/17/19 11:19 Consult to Cardiology [CONS] Routine Consulting Provider: ABRAHAM BAUTISTA Reason For Exam: chest pain Consult to Physician [CONS] Routine Comment: Consulting Provider: LAYO MENDEZ Physician Instructions: Reason For Exam: coffee ground emesis 09/17/19 11:22 Consult to Physician [CONS] Routine Comment: Consulting Provider: GILDA PENA Physician Instructions: Reason For Exam: ckd Hospitalization Reason for admission: Coffee ground Emesis Condition: Stable Pertinent studies: CXR ECHO Hospital course: 73-year-old man with history of CAD status post stents and CABG in May of this year who presents with 7 episodes of coffee-ground emesis. Patient has known history of peptic ulcer disease and has had GI bleed in the past. He also complained of chest pain which began after vomiting. Discharge Diagnosis: Coffee-ground emesis/upper GI bleed Hemoglobin stable, given history of peptic ulcer disease we will treat with PPI, GI evaluation noted Continue Protonix and Closely monitor H&H, supportive care.Out patient evaluation by GI History of chronic alcohol use advised to quit alcohol intake Chest pain, hx of CAd sp stent and cabg on warfarin ( has been on warfarin since his cabg Likely esophageal irritation from multiple episodes of vomiting, may also be esophageal tear. Given history of CAD with CABG and stents, cardiology consulted Troponin negative so far, follow-up serial troponins Chronic kidney disease, stage II-III Nephrology consult, avoid nephrotoxins Alcohol abuse Preventative health counseling performed for 17 minutes DVT prophylaxis SCDs and early ambulation, in light of suspected GI bleed, warfarin and asa on hold Advance Directives: Yes VTE prophylaxis?: Mechanical Plan of care discussed with patient/family: Yes Stable at discharge, Disposition: - TO HOME OR SELFCARE Time spent for discharge: 32 min Core Measure Documentation - Palliative Care Palliative Care/ Comfort Measures: Not Applicable - Core Measures Any of the following diagnoses?: none Exam - Constitutional Vitals: Temp Pulse Resp BP Pulse Ox 98.2 F 79 18 172/92 99 09/19/19 11:26 09/19/19 03:52 09/19/19 11:26 09/19/19 11:26 09/19/19 03:52 General appearance: Present: no acute distress, well-nourished - EENT Eyes: Present: PERRL, EOM intact - Neck Neck: Present: supple, normal ROM - Respiratory Respiratory effort: normal Respiratory: negative: rales, rhonchi, wheezing - Cardiovascular Rhythm: regular Heart Sounds: Present: S1 & S2 - Extremities Extremities: no ischemia, No edema - Abdominal General gastrointestinal: Present: soft, non-tender, non-distended, normal bowel sounds - Integumentary Integumentary: Present: clear, warm - Musculoskeletal Musculoskeletal: strength equal bilaterally - Psychiatric Psychiatric: appropriate mood/affect, cooperative - Neurologic Neurologic: CNII-XII intact, moves all extremities Plan Activity: advance as tolerated, fall precautions Diet: other (cardiac diet) Additional Instructions: Advised to follow private GI in 3-5 days. Advised to follow private pourer metal in within 1 week. In view of GI bleeding in the past, cardiology recommended EGD, prior to starting anticoagulants[blood thinner medications] patient refused EGD during this hospital stay Follow up with: PRIMARY CARE, [Referring] - 3-5 Days LAYO MENDEZ MD [Staff Physician] - 7 Days ABRAHAM BAUTISTA MD [Staff Physician] - 7 Days Prescriptions: RX: Pantoprazole [Protonix TAB] 40 mg PO BID #60 tablet
--- NOTE | 2019-09-19 13:46 | Progress Note ---
Assessment and Plan [place] records obtained - pt has h/o paroxysmal atrial fibrillation and was discharged on Xarelto. Also per [place] records, pt is noted to have h/o recurrent GI bleed. We believe pt would benefit from endoscopy as it appears that he will require half-way systemic AC in regards to PAfib. Endoscopy was planned today per GI team, however, pt has ultimately declined EGD and wishes to be discharged home. We feel that pt is at high risk for recurrent GI bleeding and that resumption of systemic AC is not safe as GI w/u has not been completed. Pt states he is willing to assume the risks of discontinuing half-way systemic AC and therefore we recommend discontinuation of Xarelto. D/w Dr. Fan. Currently stable cardiac status. Pt may discharge home from cardiology standpoint. Recommend follow up with [facility] within 1-2 weeks of hospital discharge. Pt verbalizes understanding. The patient has been seen in conjunction with Dr. MARIAELENA Lira who agrees with the assessment and plan of care. - Patient Problems (1) Chest pain Current Visit: Yes Status: Resolved Qualifiers: Chest pain type: other chest pain Qualified Code(s): R07.89 - Other chest pain; R07.8 - Other chest pain (2) GI bleed Current Visit: Yes Status: Acute (3) CAD (coronary artery disease) Current Visit: Yes Status: Chronic (4) History of coronary artery bypass graft Current Visit: Yes Status: Chronic (5) MIKAEL (acute kidney injury) Current Visit: Yes Status: Acute (6) Alcohol use Current Visit: Yes Status: Acute (7) Peptic ulcer Current Visit: Yes Status: Chronic (8) Ischemic cardiomyopathy Current Visit: Yes Status: Chronic (9) Paroxysmal atrial fibrillation Current Visit: Yes Status: Chronic Subjective Date of service: 09/19/19 Principal diagnosis: coffee-ground emesis Interval history: pt resting in bed, no current complaints. in SR on tele with no acute events overnight. Objective Last Vital Signs Temp 98.2 F 09/19/19 11:26 Pulse 69 09/19/19 10:00 Resp 18 09/19/19 11:26 BP 172/92 09/19/19 11:26 Pulse Ox 99 09/19/19 03:52 - Physical Examination General: No Apparent Distress HEENT: Positive: PERRL, Normocephaly, Mucus Membranes Moist Neck: Positive: neck supple Cardiac: Positive: Reg Rate and Rhythm, S1/S2 Lungs: Positive: Decreased Breath Sounds Neuro: Positive: Grossly Intact Abdomen: Negative: Tender Skin: Negative: Rash Musculoskeletal: No Pain Extremities: Absent: edema - Labs and Meds CBC 09/19/19 Range/Units 04:29 WBC 5.9 (4.5-11.0) K/mm3 RBC 4.01 (3.65-5.03) M/mm3 Hgb 12.5 (11.8-15.2) gm/dl Hct 37.2 (35.5-45.6) % Plt Count 184 (140-440) K/mm3 Lymph # 1.3 (1.2-5.4) K/mm3 [place] # 0.9 H (0.0-0.8) K/mm3 Eos # 0.1 (0.0-0.4) K/mm3 Baso # 0.1 (0.0-0.1) K/mm3 - Imaging and Cardiology EKG: report reviewed, image reviewed Echo: report reviewed ( EF 35-40%, mild to mod LVH, abnormal diastolic function, mild MR. ) - Telemetry EKG Rhythm: Sinus Rhythm - EKG Sinus rhythms and dysrhythmias: sinus rhythm
[2019-09-19] MEDS ORDERED: PROPOFOL 200 MG/20 ML VIAL IV ONE (14:40)
--- NOTE | 2019-09-19 14:41 | Gastroenterology Progress Note ---
Assessment and Plan 1.UGIB/coffee-ground emesis 2.substernal CP/epigastric pain 3.H/o recurrent PUD 4.ETOH 5.CAD (s/p CABG 05/2019) 6.CKD -afebrile -WBC WNL -INR 1.00, plt WNL -H/H WNL (12.5/37.2)-stable -no active signs of bleeding overnight or this am -etiology-likely M-W tear from recent ETOH binge vs esophagitis vs recurrent PUD vs other -clinically, patient is stable. Denies abd pain or N/v. Tolerating diet. -EGD was scheduled for today for further evaluation as requested per cardiology given need for anticoagulation, however patient is now refusing to proceed with procedure (discussed purpose, risks and benefits of EGD again with patient this am with understanding voiced but he continues to refuse to proceed with procedure and requests to be discharged home) -continue PPI -alcohol cessation -recommend patient f/u with primary GI at [place] upon discharge for further management -will sign off, please call back if needed Subjective Date of service: 09/19/19 Principal diagnosis: coffee-ground emesis Interval history: No acute distress or active signs of bleeding overnight or this am. Denies abd pain or N/V. Tolerating diet. Objective - Constitutional Vitals: Temp Pulse Resp BP Pulse Ox 98.2 F 69 18 172/92 99 09/19/19 11:26 09/19/19 10:00 09/19/19 11:26 09/19/19 11:26 09/19/19 03:52 General appearance: no acute distress - EENT Eyes: PERRL, EOM intact ENT: hearing intact - Respiratory Respiratory effort: normal Respiratory: bilateral: CTA - Cardiovascular Rhythm: regular - Gastrointestinal General gastrointestinal: Present: soft, non-tender, non-distended, normal bowel sounds - Neurologic Neurological: alert and oriented x3 - Labs CBC & Chem 7: 09/19/19 04:29 09/18/19 07:14 Labs: Laboratory Results - last 24 hr 09/19/19 04:29 WBC 5.9 RBC 4.01 Hgb 12.5 Hct 37.2 MCV 93 MCH 31 MCHC 34 RDW 17.7 H Plt Count 184 Lymph % (Auto) 22.6 [place] % (Auto) 15.5 H Eos % (Auto) 2.1 Baso % (Auto) 0.9 Lymph # 1.3 [place] # 0.9 H Eos # 0.1 Baso # 0.1 Seg Neutrophils % 58.9 Seg Neutrophils # 3.5
== END 2019-09-19 17:17 | disposition home or self-care (01) ==
LOC: ED 08:04 → 4A 10:45
PROVIDERS: ADMIT Internal Medicine; ATTEND Internal Medicine
DX: K92.2 Gastrointestinal hemorrhage, unspecified (principal); R07.9 Chest pain, unspecified; I12.9 Hypertensive chronic kidney disease with stage 1 through stage 4 chronic kidney disease, or unspecified chronic kidney disease; N18.3 Chronic kidney disease, stage 3 (moderate); N17.9 Acute kidney failure, unspecified; F10.129 Alcohol abuse with intoxication, unspecified; I48.0 Paroxysmal atrial fibrillation; I25.5 Ischemic cardiomyopathy; Z95.1 Presence of aortocoronary bypass graft; Z79.01 Long term (current) use of anticoagulants; Z79.82 Long term (current) use of aspirin
CPT/HCPCS: 36415; 71046; 80048; 80053; 83690; 84484; 85025; 85610; 85730; 93005; 93010; 93306; 96361; 96374; 96375; 99284; C9113; G0378; J2270; J2704

== ENCOUNTER 2019-09-26 19:05 | Observation (INO) | payer MEDICARE ==
--- NOTE | 2019-09-26 19:16 | Emergency Department Report ---
ED Chest Pain HPI - General Stated Complaint: CHEST PAIN Time Seen by Provider: 09/26/19 19:16 Source: patient Mode of arrival: Ambulatory Limitations: No Limitations - History of Present Illness Initial Comments: Patient is a 73-year-old male that presents emergency room with complaints of chest pain. Patient states he had home and he developed chest pain. Patient states it was a 10 out of 10 and after he was given nitroglycerin and aspirin at dropped down to a 3 out of 10. Patient states his chest pain started to increase again. Patient describes it as a left chest stabbing pain. Patient states is nonradiating. Patient states he has a history of triple bypass and hypertension. Patient states she's been drinking tonight. Patient was brought in by EMS. Patient states that he was given aspirin and nitroglycerin 3. Patient states his blood pressure improved after nitroglycerin. MD Complaint: chest pain -: Sudden Onset: during rest Pain Location: substernal, left chest Pain Radiation: none Severity scale (0 -10): 3 Quality: sharp Consistency: constant Improves With: nitroglycerin, rest Worsens With: exertion re: denies: nausea, vomting, diaphoresis, dyspnea, sense of impending doom Other Symptoms: denies: cough, fever, syncope, rash, acid taste in mouth, leg swelling, palpitations, burping Treatments Prior to Arrival: aspirin, nitroglycerin Aspirin use within the Past 7 Days: (1) Yes - Related Data On Oral Contraceptives: No Home Medications Medication Instructions Recorded Confirmed Last Taken Aspirin [Aspirin BABY CHEW TAB] 81 mg PO QDAY 09/17/19 09/17/19 09/17/19 Losartan/Hydrochlorothiazide 1 each PO QDAY 09/17/19 09/17/19 09/17/19 [Losartan-Hctz 100-25 mg Tab] Metoprolol Xl [Metoprolol 100 mg PO QDAY 09/17/19 09/17/19 09/17/19 SUCCINATE ER TAB] amLODIPine 10 mg PO DAILY 09/17/19 09/17/19 09/17/19 Previous Rx's Medication Instructions Recorded Last Taken Type Pantoprazole [Protonix TAB] 40 mg PO BID #60 tablet 09/19/19 Unknown Rx Allergies Allergy/AdvReac Type Severity Reaction Status Date / Time codeine Allergy Rash Verified 09/17/19 08:19 tramadol Allergy Rash Verified 09/17/19 08:19 Heart Score - HEART Score History: Highly suspicious EKG: Non-specific Age: > 65 Risk factors: > 3 risk factors or hx of atherosclerotic disease Troponin: < normal limit HEART Score: 7 ED Review of Systems ROS: Stated complaint: CHEST PAIN Other details as noted in HPI Constitutional: denies: chills, fever Eyes: denies: eye pain, eye discharge, vision change ENT: denies: ear pain, throat pain Respiratory: denies: cough, shortness of breath, wheezing Cardiovascular: chest pain. denies: palpitations Endocrine: no symptoms reported Gastrointestinal: denies: abdominal pain, nausea, diarrhea Genitourinary: denies: urgency, dysuria Musculoskeletal: denies: back pain, joint swelling, arthralgia Skin: denies: rash, lesions Neurological: denies: headache, weakness, paresthesias Psychiatric: denies: anxiety, depression Hematological/Lymphatic: denies: easy bleeding, easy bruising ED Past Medical Hx - Past Medical History Previous Medical History?: Yes Hx Hypertension: Yes Hx Heart Attack/AMI: Yes Additional medical history: gastric ulcer. ETOH - Surgical History Past Surgical History?: Yes Hx Open Heart Surgery: Yes (CABG (May 2019 @ [facility])) Additional Surgical History: Neck surgery - Family History Family history: no significant - Social History Smoking Status: Never Smoker Substance Use Type: None - Medications Home Medications: Home Medications Medication Instructions Recorded Confirmed Last Taken Type Aspirin [Aspirin BABY CHEW TAB] 81 mg PO QDAY 09/17/19 09/17/19 09/17/19 History Losartan/Hydrochlorothiazide 1 each PO QDAY 09/17/19 09/17/19 09/17/19 History [Losartan-Hctz 100-25 mg Tab] Metoprolol Xl [Metoprolol 100 mg PO QDAY 09/17/19 09/17/19 09/17/19 History SUCCINATE ER TAB] amLODIPine 10 mg PO DAILY 09/17/19 09/17/19 09/17/19 History Pantoprazole [Protonix TAB] 40 mg PO BID #60 tablet 09/19/19 Unknown Rx ED Physical Exam - General Limitations: No Limitations General appearance: alert, in no apparent distress - Head Head exam: Present: atraumatic, normocephalic - Eye Eye exam: Present: normal appearance - ENT ENT exam: Present: mucous membranes moist - Neck Neck exam: Present: normal inspection - Respiratory Respiratory exam: Present: normal lung sounds bilaterally. Absent: respiratory distress, wheezes, rales - Cardiovascular Cardiovascular Exam: Present: regular rate, normal rhythm. Absent: systolic murmur, diastolic murmur, rubs, gallop - GI/Abdominal GI/Abdominal exam: Present: soft, normal bowel sounds - Rectal Rectal exam: Present: deferred - Extremities Exam Extremities exam: Present: normal inspection - Back Exam Back exam: Present: normal inspection - Neurological Exam Neurological exam: Present: alert, oriented X3 - Psychiatric Psychiatric exam: Present: normal affect, normal mood - Skin Skin exam: Present: warm, dry, intact, normal color. Absent: rash ED Course Vital Signs 09/26/19 09/26/19 09/26/19 19:19 19:20 19:21 Temperature Pulse Rate 87 92 H 88 Respiratory 15 19 15 Rate Blood Pressure 168/93 168/93 O2 Sat by Pulse 99 100 99 Oximetry 09/26/19 09/26/19 09/26/19 19:23 19:24 19:25 Temperature 98.7 F Pulse Rate 90 86 Respiratory 19 21 Rate Blood Pressure 168/93 168/93 O2 Sat by Pulse 100 100 Oximetry 09/26/19 09/26/19 09/26/19 19:39 19:41 19:43 Temperature Pulse Rate 83 82 85 Respiratory 14 12 14 Rate Blood Pressure 145/85 145/85 145/85 O2 Sat by Pulse 100 100 100 Oximetry 09/26/19 09/26/19 09/26/19 19:45 19:47 19:49 Temperature Pulse Rate 83 86 81 Respiratory 18 22 15 Rate Blood Pressure 162/101 162/101 162/101 O2 Sat by Pulse 100 100 100 Oximetry 09/26/19 09/26/19 09/26/19 19:51 19:53 19:55 Temperature Pulse Rate 80 78 80 Respiratory 20 8 L 10 L Rate Blood Pressure 162/101 162/101 162/101 O2 Sat by Pulse 99 100 100 Oximetry 09/26/19 09/26/19 09/26/19 19:57 19:59 20:01 Temperature Pulse Rate 78 83 85 Respiratory 17 13 19 Rate Blood Pressure 162/101 162/101 162/101 O2 Sat by Pulse 100 100 99 Oximetry 09/26/19 09/26/19 09/26/19 20:03 20:05 20:06 Temperature Pulse Rate 84 84 79 Respiratory 17 21 19 Rate Blood Pressure 162/101 162/101 146/90 O2 Sat by Pulse 98 99 100 Oximetry 09/26/19 09/26/19 09/26/19 20:07 20:09 20:11 Temperature Pulse Rate 81 77 73 Respiratory 16 19 21 Rate Blood Pressure 146/90 146/90 146/90 O2 Sat by Pulse 100 100 100 Oximetry 09/26/19 09/26/19 09/26/19 20:13 20:15 20:17 Temperature Pulse Rate 75 73 73 Respiratory 19 18 19 Rate Blood Pressure 146/90 148/110 148/110 O2 Sat by Pulse 100 100 100 Oximetry 09/26/19 09/26/19 09/26/19 20:19 20:21 20:23 Temperature Pulse Rate 75 75 72 Respiratory 21 19 18 Rate Blood Pressure 148/110 148/110 148/110 O2 Sat by Pulse 100 100 100 Oximetry 09/26/19 09/26/19 09/26/19 20:25 20:27 20:29 Temperature Pulse Rate 74 72 72 Respiratory 17 12 15 Rate Blood Pressure 148/110 148/110 148/110 O2 Sat by Pulse 100 100 100 Oximetry 09/26/19 09/26/19 09/26/19 20:30 20:31 20:33 Temperature Pulse Rate 74 76 74 Respiratory 18 19 18 Rate Blood Pressure 150/100 150/100 150/100 O2 Sat by Pulse 100 100 100 Oximetry 09/26/19 09/26/19 09/26/19 20:35 20:37 20:39 Temperature Pulse Rate 80 87 92 H Respiratory 17 17 17 Rate Blood Pressure 150/100 150/100 150/100 O2 Sat by Pulse 100 100 99 Oximetry 09/26/19 09/26/19 09/26/19 20:41 20:43 20:45 Temperature Pulse Rate 85 84 81 Respiratory 20 21 18 Rate Blood Pressure 150/100 150/100 150/100 O2 Sat by Pulse 99 99 100 Oximetry 09/26/19 09/26/19 09/26/19 20:46 20:47 20:49 Temperature Pulse Rate 82 80 78 Respiratory 16 20 21 Rate Blood Pressure 148/88 148/88 148/88 O2 Sat by Pulse 99 99 99 Oximetry 09/26/19 09/26/19 09/26/19 20:51 20:53 20:55 Temperature Pulse Rate 76 76 76 Respiratory 14 19 13 Rate Blood Pressure 148/88 148/88 148/88 O2 Sat by Pulse 99 98 99 Oximetry 09/26/19 09/26/19 09/26/19 20:57 20:59 21:00 Temperature Pulse Rate 76 77 76 Respiratory 16 16 20 Rate Blood Pressure 148/88 148/88 161/89 O2 Sat by Pulse 97 98 97 Oximetry 09/26/19 09/26/19 09/26/19 21:01 21:03 21:05 Temperature Pulse Rate 75 74 73 Respiratory 18 22 17 Rate Blood Pressure 161/89 161/89 161/89 O2 Sat by Pulse 99 99 99 Oximetry 09/26/19 09/26/19 09/26/19 21:07 21:08 21:18 Temperature Pulse Rate 72 74 Respiratory 13 11 L 18 Rate Blood Pressure 161/89 161/89 O2 Sat by Pulse 100 100 Oximetry - Reevaluation(s) Reevaluation #1: Patient states she is almost pain-free. Patient states the pain is a 1 out of 10. 09/26/19 20:45 - Consultations Consultation #1: Discussed case with Dr. Lira. Dr. Lira states the EKG does not show a STEMI and patient needs to be ruled out for a dissection and then admitted to medicine service. Patient states she will The patient in the morning. 09/26/19 19:20 Dr Lira updated with information. Dr. Lira wants patient admitted to the hospital service 09/26/19 22:22 Consultation #2: Hospitalist consult for admission. hospitalist to admit patient. 09/26/19 22:23 SAURABH score - Saurabh Score Age > 65: (1) Yes Aspirin use within the Past 7 Days: (1) Yes 3 or more CAD Risk Factors: (1) Yes 2 or more Angina events in past 24 hrs: (0) No Known CAD with more than 50% Stenosis: (0) No Elevated Cardiac Markers: (0) No ST Deviation Greater than 0.5mm: (0) No SAURABH Score: 3 ED Medical Decision Making - Lab Data Result diagrams: 09/26/19 19:51 09/26/19 19:51 - EKG Data -: EKG Interpreted by Ct EKG shows normal: sinus rhythm, axis, intervals, QRS complexes, ST-T waves Rate: normal - EKG Data Interpretation: LVH - Radiology Data Radiology results: report reviewed - Medical Decision Making Patient is a 73-year-old male that presents emergency room with complaints of chest pain. Patient had labs done and were essentially unremarkable except for an elevated blood alcohol level. Patient is acutely intoxicated. Patient has a history of CAD and CABG. Cardiology consult and early in admission in the ER due to the patient's history. Patient admitted to the hospitalist service. Patient had a CTA which was negative. - Differential Diagnosis CP. ACS. PE. dissection Critical Care Time: Yes Critical care time in (mins) excluding proc time.: 45 Critical care attestation.: If time is entered above; I have spent that time in minutes in the direct care of this critically ill patient, excluding procedure time. Critical Care Time: 45 minutes ED Disposition Clinical Impression: CAD (coronary artery disease) Qualifiers: Coronary Disease-Associated Artery/Lesion type: [place] artery [place] vs. transplanted heart: [place] heart Associated angina: angina presence unspecified Qualified Code(s): I25.10 - Atherosclerotic heart disease of [place] coronary artery without angina pectoris Chest pain Qualifiers: Chest pain type: unspecified Qualified Code(s): R07.9 - Chest pain, unspecified Acute alcohol intoxication Qualifiers: Complication of substance-induced condition: uncomplicated Qualified Code(s): F10.920 - Alcohol use, unspecified with intoxication, uncomplicated Hypertension Qualifiers: Hypertension type: essential hypertension Qualified Code(s): I10 - Essential (primary) hypertension Disposition: OP ADMIT IP TO THIS HOSP Is pt being admited?: Yes Does the pt Need Aspirin: No Condition: Critical Instructions: Hypertension (ED) Time of Disposition: 22:24
[2019-09-26] MEDS ORDERED: MORPHINE 2 MG/1 ML INJ IV ONE ×2 (19:26→22:33)
[2019-09-26 20:28] LABS: Bilirubin,Urine NEG (Negative); Blood,Urine SM (Negative); Color,Urine Colorless (Yellow); Protein,Urine <15 mg/dL mg/dL (Negative); RBC,Urine < 1.0 /HPF (0.0-6.0); Urobilinogen,Urine < 2.0 mg/dL (<2.0); WBC,Urine < 1.0 /HPF (0.0-6.0)
[2019-09-26 20:33] LABS: Amphetamine Screen,Urine PRESUMPTIVE NEGATIVE; Benzodiazepines Screen,Urine PRESUMPTIVE NEGATIVE; Cannabinoid Screen,Urine PRESUMPTIVE NEGATIVE; Cocaine Screen,Urine PRESUMPTIVE NEGATIVE; Methadone Screen,Urine PRESUMPTIVE NEGATIVE; Opiate Screen,Urine PRESUMPTIVE NEGATIVE
--- NOTE | 2019-09-26 20:34 | XRay Report ---
CHEST 1 VIEW INDICATION / CLINICAL INFORMATION: Chest Pain. COMPARISON: None available. FINDINGS: SUPPORT DEVICES: None. HEART / MEDIASTINUM: Changes of prior median sternotomy are noted LUNGS / PLEURA: There is a small left effusion.. No pneumothorax. There is mild perihilar edema ADDITIONAL FINDINGS: No significant additional findings. IMPRESSION: 1. There is a small left pleural effusion. There is mild edema. Signer Name: Дмитрий Muñoz MD Signed: 09/26/2019 8:29 PM Workstation Name: [id number]
[2019-09-26 20:38] LABS: Calcium 8.8 mg/dL (8.4-10.2)
[2019-09-26] MEDS ORDERED: ASPIRIN 325 MG TAB PO ONE (20:44)
[2019-09-26 20:48] LABS: Basophils % (Auto) 0.8 % (0.0-1.8); Eosinophils % (Auto) 0.7 % (0.0-4.3); Hematocrit 35.9 % (35.5-45.6); Hemoglobin 11.9 gm/dl (11.8-15.2); Lymphocytes # (Auto) 1.9 K/mm3 (1.2-5.4); Lymphocytes % (Auto) 31.6 % (13.4-35.0); Mean Corpuscular HGB Conc 33 % (32-34); Mean Corpuscular Volume 92 fl (84-94); Monocytes # (Auto) 0.5 K/mm3 (0.0-0.8); Monocytes % (Auto) 8.5 % (0.0-7.3); Platelet Count 284 K/mm3 (140-440); Red Blood Count 3.89 M/mm3 (3.65-5.03); Red Cell Distribution Width 17.1 % (13.2-15.2)
--- NOTE | 2019-09-26 21:51 | Cat Scan Report ---
CTA CHEST WITH IV CONTRAST INDICATION: chest pain. TECHNIQUE: Axial CT images were obtained through the chest after injection of 80 cc Omnipaque 350 IV contrast. 3 plane MIP reconstructions were produced. All CT scans at this location are performed using CT dose r eduction for ALARA by means of automated exposure control. COMPARISON: None available. FINDINGS: PULMONARY ARTERIES: No pulmonary emboli. THORACIC AORTA: No acute abnormality. HEART: Median sternotomy and CABG. Mild cardiomegaly CORONARY ARTERIES: No significant calcification. PLEURA: No pleural effusion. No pneumothorax. LYMPH NODES: No significant adenopathy. LUNGS: No acute air space or interstitial disease. ADDITIONAL FINDINGS: None. UPPER ABDOMEN: No acute findings. SKELETAL STRUCTURES: No significant osseous abnormality. IMPRESSION: 1. No CT evidence for pulmonary embolism. 2. Cardiomegaly without CHF Signer Name: Jayden Nickerson MD Signed: 09/26/2019 9:47 PM Workstation Name: [id number]
[2019-09-26] MEDS ORDERED: MORPHINE 2 MG/1 ML INJ IV PRN (23:38)
[2019-09-26] MEDS ORDERED: NITROGLYCERIN 0.4 MG TAB SUBL SL PRN (23:39)
[2019-09-26] MEDS ORDERED: ONDANSETRON 4 MG/2 ML INJ IV PRN (23:39)
[2019-09-26] MEDS ORDERED: ACETAMINOPHEN 325 MG TAB PO PRN (23:41)
[2019-09-26] MEDS ORDERED: THIAMINE 100 MG, FOLIC ACID 1 MG, MULTIPLE VITAMIN INJ, ADULT 10 ML in SODIUM CHLORIDE ... IV ONE (23:42)
[2019-09-26] MEDS ORDERED: LORazepam 2 MG/ML VIAL IV PRN (23:43)
[2019-09-27] MEDS: HEPARIN 5,000 UNIT/1 ML VIAL SUB-Q SCH ×3 (00:23→22:00)
[2019-09-27 01:06] LABS: Creatine Kinase MB 23.5 ng/mL (0.0-4.0)
--- NOTE | 2019-09-27 05:36 | History and Physical Report ---
CHIEF COMPLAINT: Chest pain. HISTORY OF PRESENTING ILLNESS: The patient is a 73-year-old male who said that he has been having sharp chest pain involving the retrosternal and precordial area, going on for about 24-48 hours. Pain, according to the patient, is stabbing in nature and does not radiate and pain is associated with shortness of breath. Pain was relieved with nitroglycerin. There was no history of nausea or vomiting and no history of diaphoresis. The patient admitted to drinking alcohol prior to coming to the Emergency Room. PAST MEDICAL HISTORY: Pertinent for hypertension, coronary artery disease, status post myocardial infarction. Also, the patient has past medical history of gastric ulcer and alcohol abuse. PAST SURGICAL HISTORY: Pertinent for coronary artery bypass graft in May 2019 at [facility]. Also, the patient has past medical history of neck surgery. FAMILY HISTORY: Noncontributory. SOCIAL HISTORY: The patient does not smoke, does not drink alcohol and does not use illicit drugs. MEDICATIONS: The patient is on aspirin 81 mg daily, losartan/HCTZ 100/25 mg 1 by mouth daily, metoprolol succinate 100 mg by mouth daily, amlodipine 10 mg by mouth daily and Protonix 40 mg by mouth twice daily. ALLERGIES: THE PATIENT IS ALLERGIC TO CODEINE and TRAMADOL. REVIEW OF SYSTEMS: CONSTITUTIONAL: There is no fever, no chills, no diaphoresis. HEENT: There is no headache or sore throat. CARDIOVASCULAR SYSTEM: Chest pain is present. No orthopnea. RESPIRATORY SYSTEM: Shortness of breath is present. No cough. GASTROINTESTINAL SYSTEM: There is no nausea, no vomiting, no abdominal pain, diarrhea or constipation. NEUROLOGICAL SYSTEM: There is no numbness, no dizziness and no altered mental status. MUSCULOSKELETAL SYSTEM: There is no joint pain or swelling. DERMATOLOGICAL SYSTEM: There is no skin rash or itching. GENITOURINARY SYSTEM: There is no dysuria, hematuria, or flank pain. Rest of system review is normal. PHYSICAL EXAMINATION: GENERAL: At the time of exam, the patient was found to be alert, oriented x3 and not in acute distress. VITAL SIGNS: At the initial time of presentation showed temperature of 98.7 degrees Fahrenheit, pulse of 87, respirations 15, blood pressure 168/93, O2 sat of 99% on room air. HEENT: Showed pupils to be equal, round, reactive to light and accommodating. Extraocular muscles are intact. NECK: Supple with no JVD or carotid bruit. CARDIOVASCULAR SYSTEM: Showed normal first and second heart sounds, with no gallops or murmurs. RESPIRATORY SYSTEM: Showed good air entry on both sides of the lungs with no abnormal breath sounds. GASTROINTESTINAL SYSTEM: Show abdomen to be full, soft, nontender with no organomegaly or rigidity. NEUROLOGIC: Shows no focal deficit. MUSCULOSKELETAL SYSTEM: Show no joint swelling or tenderness. DERMATOLOGICAL SYSTEM: Showed no skin rash. GENITOURINARY SYSTEM: Showing no costovertebral angle tenderness. PERTINENT LABORATORY AND IMAGING STUDIES: The patient had CT angiogram of the chest done, which shows no evidence of pulmonary embolism. There is finding of cardiomegaly on CT angiogram of the chest. Also, the patient had chest x-ray done that shows small left pleural effusion and mild edema. Lab results, the patient has CBC done with normal white count, normal hemoglobin and normal hematocrit and CBC differential showed an increased monocyte count of 8.5%. The patient's chemistry was unremarkable, except for elevated liver transaminase, AST, with a value of 76. The patient's cardiac enzymes show elevated total CPK of 913 with elevated CK-MB of 23.5 and normal CK percentage index and normal troponin level. The patient's urinalysis was unremarkable. Toxicology screen came back unremarkable, except for elevated serum alcohol level of 0.21. DIAGNOSES: 1. Chest pain. 2. Alcohol intoxication. PLAN OF CARE: 1. The patient will be placed on observation on telemetry. 2. The patient will have serial cardiac enzymes done every 6 hours x2 levels. 3. The patient will continue Cardiology consult with Dr. Pankaj Patterson as requested by the Emergency Room physician. 4. The patient will be on heparin 5000 units subcutaneous q.12 hours for DVT prophylaxis. 5. The patient will be on IV morphine 2 mg every 3 hours as needed for pain and IV Zofran 4 mg every 8 hours as needed for nausea and vomiting. 6. The patient will be on nitro paste 1 inch to anterior chest wall q.i.d. as well as sublingual nitroglycerin 0.4 mg every 5 minutes as needed for breakthrough chest pain. 7. The patient will be on oxygen by nasal cannula at 2 liters per minute. 8. The patient will be placed on IV lorazepam 1 mg every 4 hours as needed for agitation. 9. The patient will be on Tylenol 650 mg by mouth every 4 hours for fever and headache and aspirin 325 mg by mouth daily. 10. The patient will be on IV banana bag, consisting of thiamine 100 mg, folic acid 1 mg, multivitamin 1 g and magnesium sulfate 2 g in 1 liter of normal saline running at 125 mL an hour. JOB# [id number] OCN/NTS
[2019-09-27] MEDS: NITROGLYCERIN 2% OINT 1 GM TP SCH ×4 (05:54→18:52)
[2019-09-27 05:59] LABS: Creatine Kinase MB 19.1 ng/mL (0.0-4.0)
--- NOTE | 2019-09-27 09:23 | Discharge Summary ---
Providers - Providers Date of Admission: 09/26/19 22:36 Date of discharge: 09/27/19 Attending physician: JAYDEN JIN 09/26/19 19:35 Consult to Physician [CONS] Routine Comment: Dr. Pizarro spoke with Dr. Bautista @ [phone] Consulting Provider: DANAE BAUTISTA Physician Instructions: Reason For Exam: cp. abn ekg Primary care physician: 3D ANIMATOR Hospitalization Reason for admission: cp Condition: Critical Hospital course: Patient is a 73-year-old male with past medical history of coronary artery disease, CABG 3 and hypertension who presented emergency room with complaints of chest pain that was relieved with nitroglycerin after arrival to the emergency room. The patient was admitted with diagnosis of chest pain and cardiology consult. Cardiac isoenzymes 3 negative with no acute EKG changes. CT of the chest was negative for PE. Patient is to undergo ischemic evaluation this morning and if negative will likely discharge home. Disposition: TO HOME OR SELFCARE Time spent for discharge: 32 - Discharge Diagnoses (1) Acute alcohol intoxication Status: Acute Qualifiers: Complication of substance-induced condition: uncomplicated Qualified Code(s): F10.920 - Alcohol use, unspecified with intoxication, uncomplicated (2) Chest pain Status: Acute Qualifiers: Chest pain type: unspecified Qualified Code(s): R07.9 - Chest pain, unspecified (3) Hypertension Status: Acute Qualifiers: Hypertension type: essential hypertension Qualified Code(s): I10 - Essential (primary) hypertension (4) CAD (coronary artery disease) Status: Chronic Qualifiers: Coronary Disease-Associated Artery/Lesion type: [place] artery [place] vs. transplanted heart: [place] heart Associated angina: angina presence unspecified Qualified Code(s): I25.10 - Atherosclerotic heart disease of [place] coronary artery without angina pectoris Core Measure Documentation - Palliative Care Palliative Care/ Comfort Measures: Not Applicable - Core Measures Any of the following diagnoses?: none Exam - Constitutional Vitals: Temp Pulse Resp BP Pulse Ox 98.5 F 82 20 176/78 94 09/27/19 03:37 09/27/19 05:54 09/27/19 03:37 09/27/19 05:54 09/27/19 03:37 General appearance: Present: no acute distress, well-nourished - EENT Eyes: Present: PERRL ENT: hearing intact, clear oral mucosa - Neck Neck: Present: supple, normal ROM - Respiratory Respiratory effort: normal Respiratory: bilateral: CTA - Cardiovascular Heart Sounds: Present: S1 & S2. Absent: rub, click - Extremities Extremities: pulses symmetrical, No edema Peripheral Pulses: within normal limits - Abdominal General gastrointestinal: Present: soft, non-tender, non-distended, normal bowel sounds Male genitourinary: Present: normal - Integumentary Integumentary: Present: clear, warm, dry - Musculoskeletal Musculoskeletal: gait normal, strength equal bilaterally - Psychiatric Psychiatric: appropriate mood/affect, intact judgment & insight - Neurologic Neurologic: CNII-XII intact, moves all extremities Plan Activity: advance as tolerated Weight Bearing Status: Weight Bear as Tolerated Diet: low fat, low cholesterol, low salt Follow up with: PRIMARY CAREMD [Primary Care Provider] - 7 Days DANAE BAUTISTA MD [Staff Physician] - 7 Days Prescriptions: amLODIPine 10 mg PO DAILY #30 Aspirin [Aspirin BABY CHEW TAB] 81 mg PO QDAY #30 Losartan/Hydrochlorothiazide [Losartan-Hctz 100-25 mg Tab] 1 each PO QDAY #30 Metoprolol Xl [Metoprolol SUCCINATE ER TAB] 100 mg PO QDAY #30 Pantoprazole [Protonix TAB] 40 mg PO BID #60 tablet
[2019-09-27] MEDS ORDERED: ASPIRIN 325 MG TAB PO SCH (10:00)
--- NOTE | 2019-09-27 10:55 | Gastroenterology Consultation ---
<DANTE BOUDREAUX - Last Filed: 09/27/19 15:34> History of Present Illness - Reason for Consult Consult date: 09/27/19 epigastric pain Requesting physician: JAYDEN JIN - History of Present Illness Patient is a 73 y/o male with PMH of HTN, IA/CAD (s/p CABG 05/2019 at [place]), ICMP, CKD, PUD, recurrent GI bleed, paroxysmal Afib, and ETOH abuse who presented to ED with c/o substernal CP/epigastric pain after drinking alcohol (alcohol level 0.21 on admission) to which GI has been consulted. Cardiology following. Patient is previously known to our service from a recent hospitalization a few weeks ago (initial consult 08/30/18) for similar symptoms after binge drinking along with c/o coffee ground emesis and dark stool. He was recommended to undergo and EGD at that time for further evaluation prior to resuming systemic AC, however patient refused to proceed with procedure at that time (see prior notes) but states he is now agreeable. Admits to some associated nausea but no vomiting or active signs of bleeding this am. Denies fever, SOB, wt loss, or LGI symptoms. No hx of liver disease. Last EGD per pt report was in April of this year at [place] showing PUD (records unavailable). Past History Past Medical History: other (as per HPI) Past Surgical History: CABG, Other (neck surgery) Social history: alcohol abuse. denies: smoking Medications and Allergies Allergies Allergy/AdvReac Type Severity Reaction Status Date / Time codeine Allergy Rash Verified 09/17/19 08:19 tramadol Allergy Rash Verified 09/17/19 08:19 Home Medications Medication Instructions Recorded Confirmed Last Taken Type Aspirin 325 mg PO QDAY tablet 09/27/19 Unknown Rx Aspirin [Aspirin BABY CHEW TAB] 81 mg PO QDAY #30 09/27/19 Unknown Rx Losartan/Hydrochlorothiazide 1 each PO QDAY #30 09/27/19 Unknown Rx [Losartan-Hctz 100-25 mg Tab] Metoprolol Xl [Metoprolol 100 mg PO QDAY #30 09/27/19 Unknown Rx SUCCINATE ER TAB] Pantoprazole [Protonix TAB] 40 mg PO BID #60 tablet 09/27/19 Unknown Rx amLODIPine 10 mg PO DAILY #30 09/27/19 Unknown Rx Active Meds: Active Medications Acetaminophen (Tylenol) 650 mg PO Q4H PRN PRN Reason: Headache Aspirin (Aspirin) 325 mg PO QDAY FOR[facility] Last Admin: 09/27/19 10:49 Dose: Not Given Documented by: Heparin Sodium (Porcine) (Heparin) 5,000 unit SUB-Q Q12HR FOR[facility], [facility] Last Admin: 09/27/19 10:49 Dose: Not Given Documented by: Lorazepam (Ativan) 1 mg IV Q4H PRN PRN Reason: Agitation Morphine Sulfate (Morphine) 2 mg IV Q3H PRN PRN Reason: Pain, Moderate (4-6) Nitroglycerin (Nitro-Bid 2%) 1 inch TP QIDNTG FOR[facility], [facility]; Protocol Last Admin: 09/27/19 10:51 Dose: 1 inch Documented by: Nitroglycerin (Nitrostat) 0.4 mg SL .Q5MIN PRN PRN Reason: Chest Pain Ondansetron HCl (Zofran) 4 mg IV Q8H PRN PRN Reason: Nausea And Vomiting medications reviewed/updated as required Review of Systems - Review of Systems All systems: negative Cardiovascular: chest pain (substernal) Gastrointestinal: abdominal pain (epigastric) Exam - Constitutional Vital Signs: Temp Pulse Resp BP Pulse Ox 98.2 F 74 18 180/101 100 09/27/19 09:28 09/27/19 10:51 09/27/19 09:28 09/27/19 09:28 09/27/19 09:28 General appearance: no acute distress, other (agitated due to NPO status ) - EENT Eyes: PERRL, EOM intact ENT: hearing intact - Respiratory Respiratory effort: normal - Cardiovascular Rhythm: regular - Gastrointestinal General gastrointestinal: Present: soft, tender (slight TTP in epigastric), non- distended, normal bowel sounds - Neurologic Neurological: alert and oriented x3 - Labs CBC & Chem 7: 09/26/19 19:51 09/26/19 19:51 Lab Results: Laboratory Results - last 24 hr 09/26/19 09/26/19 09/26/19 19:51 19:51 19:52 WBC 6.0 RBC 3.89 Hgb 11.9 Hct 35.9 MCV 92 MCH 31 MCHC 33 RDW 17.1 H Plt Count 284 Lymph % (Auto) 31.6 [place] % (Auto) 8.5 H Eos % (Auto) 0.7 Baso % (Auto) 0.8 Lymph # 1.9 [place] # 0.5 Eos # 0.0 Baso # 0.0 Seg Neutrophils % 58.4 Seg Neutrophils # 3.5 Sodium 133 L Potassium 4.1 Chloride 95.6 L Carbon Dioxide 24 Anion Gap 18 BUN 23 H Creatinine 1.5 Estimated GFR 56 BUN/Creatinine Ratio 15 Glucose 84 Calcium 8.8 Total Bilirubin 0.20 AST 76 H ALT 47 Alkaline Phosphatase 57 Total Creatine Kinase CK-MB (CK-2) CK-MB (CK-2) Rel Index Troponin T 0.012 Total Protein 7.3 Albumin 4.0 Albumin/Globulin Ratio 1.2 Urine Color Colorless Urine Turbidity Clear Urine pH 6.0 Ur Specific [place] 1.003 Urine Protein <15 mg/dl Urine Glucose (UA) Neg Urine Ketones Neg Urine Blood Sm Urine Nitrite Neg Urine Bilirubin Neg Urine Urobilinogen < 2.0 Ur Leukocyte Esterase Neg Urine WBC (Auto) < 1.0 Urine RBC (Auto) < 1.0 Urine Opiates Screen Urine Methadone Screen Ur Barbiturates Screen Ur Phencyclidine Scrn Ur Amphetamines Screen U Benzodiazepines Scrn Urine Cocaine Screen U Marijuana (THC) Screen Drugs of Abuse Note Plasma/Serum Alcohol 09/26/19 09/26/19 09/27/19 19:52 20:32 00:31 WBC RBC Hgb Hct MCV MCH MCHC RDW Plt Count Lymph % (Auto) [place] % (Auto) Eos % (Auto) Baso % (Auto) Lymph # [place] # Eos # Baso # Seg Neutrophils % Seg Neutrophils # Sodium Potassium Chloride Carbon Dioxide Anion Gap BUN Creatinine Estimated GFR BUN/Creatinine Ratio Glucose Calcium Total Bilirubin AST ALT Alkaline Phosphatase Total Creatine Kinase 913 H CK-MB (CK-2) 23.5 H CK-MB (CK-2) Rel Index 2.5 Troponin T 0.015 Total Protein Albumin Albumin/Globulin Ratio Urine Color Urine Turbidity Urine pH Ur Specific [place] Urine Protein Urine Glucose (UA) Urine Ketones Urine Blood Urine Nitrite Urine Bilirubin Urine Urobilinogen Ur Leukocyte Esterase Urine WBC (Auto) Urine RBC (Auto) Urine Opiates Screen Presumptive negative Urine Methadone Screen Presumptive negative Ur Barbiturates Screen Presumptive negative Ur Phencyclidine Scrn Presumptive negative Ur Amphetamines Screen Presumptive negative U Benzodiazepines Scrn Presumptive negative Urine Cocaine Screen Presumptive negative U Marijuana (THC) Screen Presumptive negative Drugs of Abuse Note Disclamer Plasma/Serum Alcohol 0.21 H 09/27/19 05:20 WBC RBC Hgb Hct MCV MCH MCHC RDW Plt Count Lymph % (Auto) [place] % (Auto) Eos % (Auto) Baso % (Auto) Lymph # [place] # Eos # Baso # Seg Neutrophils % Seg Neutrophils # Sodium Potassium Chloride Carbon Dioxide Anion Gap BUN Creatinine Estimated GFR BUN/Creatinine Ratio Glucose Calcium Total Bilirubin AST ALT Alkaline Phosphatase Total Creatine Kinase 750 H CK-MB (CK-2) 19.1 H CK-MB (CK-2) Rel Index 2.5 Troponin T 0.013 Total Protein Albumin Albumin/Globulin Ratio Urine Color Urine Turbidity Urine pH Ur Specific [place] Urine Protein Urine Glucose (UA) Urine Ketones Urine Blood Urine Nitrite Urine Bilirubin Urine Urobilinogen Ur Leukocyte Esterase Urine WBC (Auto) Urine RBC (Auto) Urine Opiates Screen Urine Methadone Screen Ur Barbiturates Screen Ur Phencyclidine Scrn Ur Amphetamines Screen U Benzodiazepines Scrn Urine Cocaine Screen U Marijuana (THC) Screen Drugs of Abuse Note Plasma/Serum Alcohol Assessment and Plan 1.substernal CP/epigastric pain 2.H/o recurrent PUD 3.ETOH abuse -afebrile -WBC WNL -plt WNL -H/H WNL (11.9/25.9)-continue to monitor and transfuse as needed -no active signs of bleeding this am -will schedule EGD today for further evaluation -Keep NPO -start on PPI -alcohol cessation discussed with patient -continue supportive care -further recommendations to follow EGD results <LEANN KEARNEY R - Last Filed: 09/27/19 15:49> Medications and Allergies Active Meds: Active Medications Acetaminophen (Tylenol) 650 mg PO Q4H PRN PRN Reason: Headache Amlodipine Besylate (Amlodipine) 10 mg PO QDAY [facility] Heparin Sodium (Porcine) (Heparin) 5,000 unit SUB-Q Q12HR [facility] Last Admin: 09/27/19 10:49 Dose: Not Given Documented by: Lorazepam (Ativan) 1 mg IV Q4H PRN PRN Reason: Agitation Losartan Potassium (Cozaar) 100 mg PO QDAY [facility] Metoprolol Succinate (Metoprolol Xl) 100 mg PO QDAY [facility] Morphine Sulfate (Morphine) 2 mg IV Q3H PRN PRN Reason: Pain, Moderate (4-6) Nitroglycerin (Nitro-Bid 2%) 1 inch TP QIDNTG RONNY; Protocol Last Admin: 09/27/19 10:51 Dose: 1 inch Documented by: Nitroglycerin (Nitrostat) 0.4 mg SL .Q5MIN PRN PRN Reason: Chest Pain Ondansetron HCl (Zofran) 4 mg IV Q8H PRN PRN Reason: Nausea And Vomiting Exam - Constitutional Vital Signs: Temp Pulse Resp BP Pulse Ox 98.7 F 77 16 167/89 97 09/27/19 13:50 09/27/19 13:50 09/27/19 13:50 09/27/19 13:50 09/27/19 13:50 - Labs CBC & Chem 7: 09/26/19 19:51 09/26/19 19:51 Lab Results: Laboratory Results - last 24 hr 09/26/19 09/26/19 09/26/19 19:51 19:51 19:52 WBC 6.0 RBC 3.89 Hgb 11.9 Hct 35.9 MCV 92 MCH 31 MCHC 33 RDW 17.1 H Plt Count 284 Lymph % (Auto) 31.6 [place] % (Auto) 8.5 H Eos % (Auto) 0.7 Baso % (Auto) 0.8 Lymph # 1.9 [place] # 0.5 Eos # 0.0 Baso # 0.0 Seg Neutrophils % 58.4 Seg Neutrophils # 3.5 Sodium 133 L Potassium 4.1 Chloride 95.6 L Carbon Dioxide 24 Anion Gap 18 BUN 23 H Creatinine 1.5 Estimated GFR 56 BUN/Creatinine Ratio 15 Glucose 84 Calcium 8.8 Total Bilirubin 0.20 AST 76 H ALT 47 Alkaline Phosphatase 57 Total Creatine Kinase CK-MB (CK-2) CK-MB (CK-2) Rel Index Troponin T 0.012 Total Protein 7.3 Albumin 4.0 Albumin/Globulin Ratio 1.2 Urine Color Colorless Urine Turbidity Clear Urine pH 6.0 Ur Specific [place] 1.003 Urine Protein <15 mg/dl Urine Glucose (UA) Neg Urine Ketones Neg Urine Blood Sm Urine Nitrite Neg Urine Bilirubin Neg Urine Urobilinogen < 2.0 Ur Leukocyte Esterase Neg Urine WBC (Auto) < 1.0 Urine RBC (Auto) < 1.0 Urine Opiates Screen Urine Methadone Screen Ur Barbiturates Screen Ur Phencyclidine Scrn Ur Amphetamines Screen U Benzodiazepines Scrn Urine Cocaine Screen U Marijuana (THC) Screen Drugs of Abuse Note Plasma/Serum Alcohol 09/26/19 09/26/19 09/27/19 19:52 20:32 00:31 WBC RBC Hgb Hct MCV MCH MCHC RDW Plt Count Lymph % (Auto) [place] % (Auto) Eos % (Auto) Baso % (Auto) Lymph # [place] # Eos # Baso # Seg Neutrophils % Seg Neutrophils # Sodium Potassium Chloride Carbon Dioxide Anion Gap BUN Creatinine Estimated GFR BUN/Creatinine Ratio Glucose Calcium Total Bilirubin AST ALT Alkaline Phosphatase Total Creatine Kinase 913 H CK-MB (CK-2) 23.5 H CK-MB (CK-2) Rel Index 2.5 Troponin T 0.015 Total Protein Albumin Albumin/Globulin Ratio Urine Color Urine Turbidity Urine pH Ur Specific [place] Urine Protein Urine Glucose (UA) Urine Ketones Urine Blood Urine Nitrite Urine Bilirubin Urine Urobilinogen Ur Leukocyte Esterase Urine WBC (Auto) Urine RBC (Auto) Urine Opiates Screen Presumptive negative Urine Methadone Screen Presumptive negative Ur Barbiturates Screen Presumptive negative Ur Phencyclidine Scrn Presumptive negative Ur Amphetamines Screen Presumptive negative U Benzodiazepines Scrn Presumptive negative Urine Cocaine Screen Presumptive negative U Marijuana (THC) Screen Presumptive negative Drugs of Abuse Note Disclamer Plasma/Serum Alcohol 0.21 H 09/27/19 05:20 WBC RBC Hgb Hct MCV MCH MCHC RDW Plt Count Lymph % (Auto) [place] % (Auto) Eos % (Auto) Baso % (Auto) Lymph # [place] # Eos # Baso # Seg Neutrophils % Seg Neutrophils # Sodium Potassium Chloride Carbon Dioxide Anion Gap BUN Creatinine Estimated GFR BUN/Creatinine Ratio Glucose Calcium Total Bilirubin AST ALT Alkaline Phosphatase Total Creatine Kinase 750 H CK-MB (CK-2) 19.1 H CK-MB (CK-2) Rel Index 2.5 Troponin T 0.013 Total Protein Albumin Albumin/Globulin Ratio Urine Color Urine Turbidity Urine pH Ur Specific [place] Urine Protein Urine Glucose (UA) Urine Ketones Urine Blood Urine Nitrite Urine Bilirubin Urine Urobilinogen Ur Leukocyte Esterase Urine WBC (Auto) Urine RBC (Auto) Urine Opiates Screen Urine Methadone Screen Ur Barbiturates Screen Ur Phencyclidine Scrn Ur Amphetamines Screen U Benzodiazepines Scrn Urine Cocaine Screen U Marijuana (THC) Screen Drugs of Abuse Note Plasma/Serum Alcohol Assessment and Plan Pt with coffee ground emesis on 09/23, has dark stools at times. Needs OAC, and will do EGD to assess.
--- NOTE | 2019-09-27 11:10 | Consultation ---
History of Present Illness Consult date: 09/27/19 Requesting physician: KELVIN JACOB III Consult reason: chest pain History of present illness: The patient is a 73 y/o male with a past medical history of CAD s/p CABG in 05/2019 at [facility], [facility], HTN, CKD, PUD, recurrent GI bleed, paroxysmal atrial fibrillation, ETOH abuse. He reports that he is regularly followed by [facility]ology. He presented with c/o epigastric pain for the past several days. He denies any cardiac complaints. He denies any nausea or vomiting. He admits that he has been binge drinking ETOH again. He was recently discharged from [facility] on 09/19/2019 after eval of GI bleed with coffee ground emesis, ETOH abuse, chest pain. He was recommended to undergo endoscopy during that hospitalization but he declined. [facility] records were obtained - pt has h/o paroxysmal atrial fibrillation for which he was receiving Xarelto. During last hospitalization, we discontinued systemic AC as pt is at high risk for recurrent GI bleeding and we felt that resumption of systemic AC was not safe as GI w/u was not been completed. Pt was agreeable to this plan. Pt now states that he wishes to undergo endoscopy. Echo done 09/17/2019 showed EF 35-40%, mild to mod LVH, abnormal diastolic function, mild MR. Past History Past Medical History: other (as per HPI) Medications and Allergies Allergies Allergy/AdvReac Type Severity Reaction Status Date / Time codeine Allergy Rash Verified 09/17/19 08:19 tramadol Allergy Rash Verified 09/17/19 08:19 Home Medications Medication Instructions Recorded Confirmed Last Taken Type Aspirin 325 mg PO QDAY tablet 09/27/19 Unknown Rx Aspirin [Aspirin BABY CHEW TAB] 81 mg PO QDAY #30 09/27/19 Unknown Rx Losartan/Hydrochlorothiazide 1 each PO QDAY #30 09/27/19 Unknown Rx [Losartan-Hctz 100-25 mg Tab] Metoprolol Xl [Metoprolol 100 mg PO QDAY #30 09/27/19 Unknown Rx SUCCINATE ER TAB] Pantoprazole [Protonix TAB] 40 mg PO BID #60 tablet 09/27/19 Unknown Rx amLODIPine 10 mg PO DAILY #30 09/27/19 Unknown Rx Active Meds: Active Medications Acetaminophen (Tylenol) 650 mg PO Q4H PRN PRN Reason: Headache Aspirin (Aspirin) 325 mg PO QDAY [facility] Last Admin: 09/27/19 10:49 Dose: Not Given Documented by: Heparin Sodium (Porcine) (Heparin) 5,000 unit SUB-Q Q12HR [facility] Last Admin: 09/27/19 10:49 Dose: Not Given Documented by: Lorazepam (Ativan) 1 mg IV Q4H PRN PRN Reason: Agitation Morphine Sulfate (Morphine) 2 mg IV Q3H PRN PRN Reason: Pain, Moderate (4-6) Nitroglycerin (Nitro-Bid 2%) 1 inch TP QIDNTG [facility]; Protocol Last Admin: 09/27/19 10:51 Dose: 1 inch Documented by: Nitroglycerin (Nitrostat) 0.4 mg SL .Q5MIN PRN PRN Reason: Chest Pain Ondansetron HCl (Zofran) 4 mg IV Q8H PRN PRN Reason: Nausea And Vomiting Review of Systems Constitutional: no weight loss, no weight gain, no fever, no chills, no sweats Ears, nose, mouth and throat: no ear pain, no nose pain, no sinus pressure, no sinus pain Cardiovascular: no chest pain, no orthopnea, no palpitations, no rapid/irregular heart beat, no edema, no syncope, no lightheadedness, no dyspnea on exertion Respiratory: no cough, no shortness of breath, no dyspnea on exertion, no congestion, no wheezing, no pain on inspiration Gastrointestinal: abdominal pain, nausea, no vomiting, no diarrhea, no constipation, no change in bowel habits Musculoskeletal: no neck stiffness, no neck pain, no shooting arm pain, no arm numbness/tingling, no low back pain, no shooting leg pain Integumentary: no rash, no pruritis, no redness, no sores, no wounds Neurological: no head injury, no paralysis, no weakness, no parathesias, no numbness, no tingling, no seizures, no syncope Psychiatric: no anxiety Endocrine: no cold intolerance, no heat intolerance Hematologic/Lymphatic: no easy bruising, no easy bleeding Allergic/Immunologic: no urticaria, no wheezing Physical Examination Vital Signs Pulse Resp Pulse Ox 87 15 99 09/26/19 19:19 09/26/19 19:19 09/26/19 19:19 General appearance: no acute distress HEENT: Positive: PERRL, Normocephaly, Mucus Membranes Moist Neck: Positive: neck supple, trachea midline Cardiac: Positive: Reg Rate and Rhythm, S1/S2 Lungs: Positive: Decreased Breath Sounds Neuro: Positive: Grossly Intact Abdomen: Positive: Tender (epigastric) Male genitourinary: Negative: tender Skin: Negative: Rash Musculoskeletal: No Pain Extremities: Absent: edema Results 09/26/19 19:51 09/26/19 19:51 Cardiac Enzymes 09/26/19 09/27/19 09/27/19 Range/Units 19:51 00:31 05:20 AST 76 H (5-40) units/L CK-MB (CK-2) 23.5 H 19.1 H (0.0-4.0) ng/mL CBC 09/26/19 Range/Units 19:51 WBC 6.0 (4.5-11.0) K/mm3 RBC 3.89 (3.65-5.03) M/mm3 Hgb 11.9 (11.8-15.2) gm/dl Hct 35.9 (35.5-45.6) % Plt Count 284 (140-440) K/mm3 Lymph # 1.9 (1.2-5.4) K/mm3 [place] # 0.5 (0.0-0.8) K/mm3 Eos # 0.0 (0.0-0.4) K/mm3 Baso # 0.0 (0.0-0.1) K/mm3 Comprehensive Metabolic Panel 09/26/19 Range/Units 19:51 Sodium 133 L (137-145) mmol/L Potassium 4.1 (3.6-5.0) mmol/L Chloride 95.6 L (98-107) mmol/L Carbon Dioxide 24 (22-30) mmol/L BUN 23 H (9-20) mg/dL Creatinine 1.5 (0.8-1.5) mg/dL Glucose 84 (75-100) mg/dL Calcium 8.8 (8.4-10.2) mg/dL AST 76 H (5-40) units/L ALT 47 (7-56) units/L Alkaline Phosphatase 57 (35-129) units/L Total Protein 7.3 (6.3-8.2) g/dL Albumin 4.0 (3.9-5) g/dL - Imaging and Cardiology Echo: report reviewed (09/17/2019 showed EF 35-40%, mild to mod LVH, abnormal diastolic function, mild MR.) EKG: report reviewed, image reviewed EKG interpretations - Telemetry EKG Rhythm: Sinus Rhythm - EKG Sinus rhythms and dysrhythmias: sinus rhythm Repolarization changes or abnormalities: repolarization abn secondary to ventricular hypertrophy Assessment and Plan Pt presented with abdominal pain. No current cardiac complaints. ECG is noted to be abnormal, unchanged from prior, changes secondary to repolarization abnormalities, Devin negative for AMI. Resume home cardiac regimen, will hold home ASA pending GI evaluation. No plans for additional cardiac w/u at this time. Will optimize anti-hypertensive regimen. He states that he is currently agreeable to undergo endoscopy. Await GI recs. The patient has been seen in conjunction with Dr. Cruz who agrees with the assessment and plan of care. - Patient Problems (1) Abdominal pain Current Visit: Yes Status: Acute (2) History of GI bleed Current Visit: Yes Status: Chronic (3) Alcohol abuse Current Visit: Yes Status: Chronic (4) CAD (coronary artery disease) Current Visit: Yes Status: Chronic Qualifiers: Coronary Disease-Associated Artery/Lesion type: [place] artery [place] vs. transplanted heart: [place] heart Associated angina: angina presence unspec ified Qualified Code(s): I25.10 - Atherosclerotic heart disease of [place] coronary artery without angina pectoris (5) History of coronary artery bypass graft Current Visit: Yes Status: Chronic (6) Peptic ulcer Current Visit: Yes Status: Chronic (7) Ischemic cardiomyopathy Current Visit: Yes Status: Chronic (8) Paroxysmal atrial fibrillation Current Visit: Yes Status: Chronic (9) CKD (chronic kidney disease) Current Visit: Yes Status: Chronic (10) Accelerated hypertension Current Visit: Yes Status: Acute
--- NOTE | 2019-09-27 11:51 | Progress Note ---
Assessment and Plan Assessment and plan: Abdominal pain. GI consultation pending. Patient will likely undergo endoscopy. CAD s/p CABG. performed at [facility] May 2019. Cardiology with no plans for additional cardiac workup. Ischemic cardiomyopathy. As above. Chronic kidney disease. Continue to monitor creatinine. PUD. History of recurrent GI bleed. GI consultation pending. Paroxysmal atrial fibrillation. - Patient Problems (1) Acute alcohol intoxication Current Visit: Yes Status: Acute Qualifiers: Complication of substance-induced condition: uncomplicated Qualified Code(s): F10.920 - Alcohol use, unspecified with intoxication, uncomplicated (2) Chest pain Current Visit: Yes Status: Acute Qualifiers: Chest pain type: unspecified Qualified Code(s): R07.9 - Chest pain, unspecified (3) Hypertension Current Visit: Yes Status: Chronic Qualifiers: Hypertension type: essential hypertension Qualified Code(s): I10 - Essential (primary) hypertension (4) CAD (coronary artery disease) Current Visit: Yes Status: Chronic Qualifiers: Coronary Disease-Associated Artery/Lesion type: [place] artery [place] vs. transplanted heart: [place] heart Associated angina: angina presence unspecified Qualified Code(s): I25.10 - Atherosclerotic heart disease of [place] coronary artery without angina pectoris History Interval history: No new issues overnight. Patient complains of abdominal pain. Hospitalist Physical - Constitutional Vitals: Temp Pulse Resp BP Pulse Ox 98.2 F 74 18 180/101 100 09/27/19 09:28 09/27/19 10:51 09/27/19 09:28 09/27/19 09:28 09/27/19 09:28 General appearance: Present: no acute distress - EENT Eyes: Present: PERRL, EOM intact ENT: hearing intact, clear oral mucosa, dentition normal - Neck Neck: Present: supple, normal ROM - Respiratory Respiratory effort: normal Respiratory: bilateral: CTA - Cardiovascular Rhythm: regular Heart Sounds: Present: S1 & S2. Absent: gallop, rub - Extremities Extremities: no ischemia, No edema, Full ROM - Abdominal General gastrointestinal: soft, non-tender, non-distended, normal bowel sounds - Integumentary Integumentary: Present: clear, warm, dry - Neurologic Neurologic: CNII-XII intact, moves all extremities Results - Labs CBC & Chem 7: 09/26/19 19:51 09/26/19 19:51 Labs: Laboratory Last Values WBC 6.0 K/mm3 (4.5-11.0) 09/26/19 19:51 RBC 3.89 M/mm3 (3.65-5.03) 09/26/19 19:51 Hgb 11.9 gm/dl (11.8-15.2) 09/26/19 19:51 Hct 35.9 % (35.5-45.6) 09/26/19 19:51 MCV 92 fl (84-94) 09/26/19 19:51 MCH 31 pg (28-32) 09/26/19 19:51 MCHC 33 % (32-34) 09/26/19 19:51 RDW 17.1 % (13.2-15.2) H 09/26/19 19:51 Plt Count 284 K/mm3 (140-440) 09/26/19 19:51 Lymph % (Auto) 31.6 % (13.4-35.0) 09/26/19 19:51 [place] % (Auto) 8.5 % (0.0-7.3) H 09/26/19 19:51 Eos % (Auto) 0.7 % (0.0-4.3) 09/26/19 19:51 Baso % (Auto) 0.8 % (0.0-1.8) 09/26/19 19:51 Lymph # 1.9 K/mm3 (1.2-5.4) 09/26/19 19:51 [place] # 0.5 K/mm3 (0.0-0.8) 09/26/19 19:51 Eos # 0.0 K/mm3 (0.0-0.4) 09/26/19 19:51 Baso # 0.0 K/mm3 (0.0-0.1) 09/26/19 19:51 Seg Neutrophils % 58.4 % (40.0-70.0) 09/26/19 19:51 Seg Neutrophils # 3.5 K/mm3 (1.8-7.7) 09/26/19 19:51 Sodium 133 mmol/L (137-145) L 09/26/19 19:51 Potassium 4.1 mmol/L (3.6-5.0) 09/26/19 19:51 Chloride 95.6 mmol/L (98-107) L 09/26/19 19:51 Carbon Dioxide 24 mmol/L (22-30) 09/26/19 19:51 Anion Gap 18 mmol/L 09/26/19 19:51 BUN 23 mg/dL (9-20) H 09/26/19 19:51 Creatinine 1.5 mg/dL (0.8-1.5) 09/26/19 19:51 Estimated GFR 56 ml/min 09/26/19 19:51 BUN/Creatinine Ratio 15 % 09/26/19 19:51 Glucose 84 mg/dL (75-100) 09/26/19 19:51 Calcium 8.8 mg/dL (8.4-10.2) 09/26/19 19:51 Total Bilirubin 0.20 mg/dL (0.1-1.2) 09/26/19 19:51 AST 76 units/L (5-40) H 09/26/19 19:51 ALT 47 units/L (7-56) 09/26/19 19:51 Alkaline Phosphatase 57 units/L (35-129) 09/26/19 19:51 Total Creatine Kinase 750 units/L (55-170) H 09/27/19 05:20 CK-MB (CK-2) 19.1 ng/mL (0.0-4.0) H 09/27/19 05:20 CK-MB (CK-2) Rel Index 2.5 (0-4) 09/27/19 05:20 Troponin T 0.013 ng/mL (0.00-0.029) 09/27/19 05:20 Total Protein 7.3 g/dL (6.3-8.2) 09/26/19 19:51 Albumin 4.0 g/dL (3.9-5) 09/26/19 19:51 Albumin/Globulin Ratio 1.2 % 09/26/19 19:51 Urine Color Colorless (Yellow) 09/26/19 19:52 Urine Turbidity Clear (Clear) 09/26/19 19:52 Urine pH 6.0 (5.0-7.0) 09/26/19 19:52 Ur Specific [place] 1.003 (1.003-1.030) 09/26/19 19:52 Urine Protein <15 mg/dl mg/dL (Negative) 09/26/19 19:52 Urine Glucose (UA) Neg mg/dL (Negative) 09/26/19 19:52 Urine Ketones Neg mg/dL (Negative) 09/26/19 19:52 Urine Blood Sm (Negative) 09/26/19 19:52 Urine Nitrite Neg (Negative) 09/26/19 19:52 Urine Bilirubin Neg (Negative) 09/26/19 19:52 Urine Urobilinogen < 2.0 mg/dL (<2.0) 09/26/19 19:52 Ur Leukocyte Esterase Neg (Negative) 09/26/19 19:52 Urine WBC (Auto) < 1.0 /HPF (0.0-6.0) 09/26/19 19:52 Urine RBC (Auto) < 1.0 /HPF (0.0-6.0) 09/26/19 19:52 Urine Opiates Screen Presumptive negative 09/26/19 19:52 Urine Methadone Screen Presumptive negative 09/26/19 19:52 Ur Barbiturates Screen Presumptive negative 09/26/19 19:52 Ur Phencyclidine Scrn Presumptive negative 09/26/19 19:52 Ur Amphetamines Screen Presumptive negative 09/26/19 19:52 U Benzodiazepines Scrn Presumptive negative 09/26/19 19:52 Urine Cocaine Screen Presumptive negative 09/26/19 19:52 U Marijuana (THC) Screen Presumptive negative 09/26/19 19:52 Drugs of Abuse Note Disclamer 09/26/19 19:52 Plasma/Serum Alcohol 0.21 % (0-0.07) H 09/26/19 20:32 Active Medications - Current Medications Current Medications: Generic Name Dose Route Start Last Admin Trade Name Freq PRN Reason Stop Dose Admin Acetaminophen 650 mg 09/26/19 23:41 Tylenol PO Q4H PRN Headache Amlodipine Besylate 10 mg 09/27/19 12:00 Amlodipine PO QDAY [facility] Aspirin 325 mg 09/27/19 10:00 09/27/19 10:49 Aspirin PO Not Given QDAY [facility] Heparin Sodium (Porcine) 5,000 unit 09/26/19 23:45 09/27/19 10:49 Heparin SUB-Q Not Given Q12HR [facility] Lorazepam 1 mg 09/26/19 23:43 Ativan IV Q4H PRN Agitation Morphine Sulfate 2 mg 09/26/19 23:38 Morphine IV Q3H PRN Pain, Moderate (4-6) Nitroglycerin 1 inch 09/27/19 06:00 09/27/19 10:51 Nitro-Bid 2% TP 1 inch QIDNTG [facility] Administration Protocol Nitroglycerin 0.4 mg 09/26/19 23:39 Nitrostat SL .Q5MIN PRN Chest Pain Ondansetron HCl 4 mg 09/26/19 23:39 Zofran IV Q8H PRN Nausea And Vomiting
[2019-09-27] MEDS ORDERED: SODIUM CHLORIDE 0.9% 1000 ML 1,000 ML ONE (13:20)
--- NOTE | 2019-09-27 13:34 | Anesthesia Consultation ---
Anesthesia Consult and Med Hx Date of service: 09/27/19 - Airway Anesthetic Teeth Evaluation: Poor ROM Head & Neck: Adequate Mental/Hyoid Distance: Adequate Mallampati Class: Class II Intubation Access Assessment: Probably Good - Pulmonary Exam CTA: Yes - Cardiac Exam Cardiac Exam: RRR - Pre-Operative Health Status ASA Pre-Surgery Classification: ASA3 Proposed Anesthetic Plan: MAC - Pulmonary Hx Smoking: No Hx Respiratory Symptoms: No - Cardiovascular System Hx Hypertension: Yes Hx Coronary Artery Disease: Yes (s/p 3 vessel CABG 05/2019; ischemic cardiomyopathy EF 35-40%.) Hx Cardia Arrhythmia: Yes (p-Afib) - Central Nervous System CVA: No - Gastrointestinal Hx Ulcer: Yes - Endocrine Hx Renal Disease: Yes (CKD) Hx Liver Disease: No Hx Insulin Dependent Diabetes: No Hx Non-Insulin Dependent Diabetes: No Hx Thyroid Disease: No - Hematic Hx Anemia: Yes - Other Systems Hx Obesity: No - Additional Comments Anesthesia Medical History Comments: No hx anesthetic complications.
--- NOTE | 2019-09-27 13:34 | Anesthesia Day of Surgery ---
Anesthesia Day of Surgery - Day of Surgery Patient Examined: Yes Patient H&P Reviewed: Yes Patient is NPO: Yes
[2019-09-27] MEDS ORDERED: PROPOFOL 200 MG/20 ML VIAL IV ONE ×2 (15:30)
--- NOTE | 2019-09-27 15:51 | Post Operative Note ---
Pre-op diagnosis: Coffee ground emesis Post-op diagnosis: other (Nonerosive gastritis) Findings: 1. Mild patchy erythema in antrum. 2. Otherwise normal EGD. Procedure: EGD Anesthesia: MAC Surgeon: LEANN KEARNEY Estimated blood loss: none Pathology: none Condition: stable Disposition: floor (1. Advance diet 2. Okay to resume OAC 3. Empiric PPI may be of benefit)
--- NOTE | 2019-09-27 16:17 | Operative Report ---
PROCEDURE: Upper endoscopy. PREOPERATIVE DIAGNOSIS: Coffee-ground emesis. POSTOPERATIVE DIAGNOSIS: Mild antral gastritis and otherwise normal endoscopy. SEDATION: MAC by Anesthesia. HISTORY: The patient is a 73-year-old man who is an alcohol abuser. He has had recent cardiac procedures and warrants anticoagulation for atrial fibrillation. He had an episode of coffee-ground emesis on the 09/23/2019 and states he has had dark stools. He has a history of peptic ulcer disease. DESCRIPTION OF PROCEDURE: Indications, risks, and benefits were explained and consent was obtained. The patient was placed in left lateral decubitus position and sedated. Video upper endoscope was passed through the mouth and oropharynx into the descending duodenum. Scope was then gradually withdrawn with close inspection of mucosa. FINDINGS: 1. Normal esophagus with sharp Z-line located at 42 cm from the incisors with no evidence of varices. 2. Single area of patchy erythema in the distal antrum. Remainder of gastric antrum, fundus, body, and cardia are normal appearing. 3. Normal-appearing duodenal bulb and duodenum. The patient tolerated the procedure well without immediate complication. IMPRESSION: 1. Mild gastritis. 2. Otherwise, normal endoscopy. RECOMMENDATIONS: 1. Okay to initiate oral anticoagulants. 2. Consider empiric proton-pump inhibitors while he is on them. 3. Alcohol avoidance. JOB# [id number] HRC/NTS
[2019-09-27] MEDS: LOSARTAN 50 MG TAB PO SCH (18:57)
[2019-09-27] MEDS: amLODIPine 10 MG TAB PO SCH (18:58)
[2019-09-28] MEDS: NITROGLYCERIN 2% OINT 1 GM TP SCH ×2 (09:33→10:45)
[2019-09-28] MEDS ORDERED: PANTOPRAZOLE 40 MG TAB PO SCH (10:00)
[2019-09-28] MEDS ORDERED: METOPROLOL SUCCINATE XL 100 MG TAB PO SCH (10:00)
--- NOTE | 2019-09-28 10:11 | Discharge Summary ---
Providers - Providers Date of Admission: 09/26/19 22:36 Date of discharge: 09/28/19 Attending physician: JAYDEN JIN 09/26/19 19:35 Consult to Physician [CONS] Routine Comment: Dr. Pizarro spoke with Dr. Bautista @ [phone] Consulting Provider: DANAE BAUTISTA Physician Instructions: Reason For Exam: cp. abn ekg 09/27/19 09:50 Consult to Physician [CONS] Routine Comment: Consulting Provider: LAYO MENDEZ Physician Instructions: Reason For Exam: abd pain Primary care physician: C[facility]ESSEL Hospitalization Reason for admission: abd pain Condition: Critical Hospital course: Patient is a 73 y/o male with PMH of HTN, VT/CAD (s/p CABG 05/2019 at [facility]), ICMP, CKD, PUD, recurrent GI bleed, paroxysmal Afib, and ETOH abuse who presented to ED with c/o substernal CP/epigastric pain after drinking alcohol (alcohol level 0.21 on admission) to which GI was consulted. Cardiology evaluated the patient and felt there were no cardiac complaints. ECG was noted to be abnormal, unchanged from prior, changes secondary to repolarization abnormalities, Devin negative for AMI. Cardiology recommended to resume home cardiac regimen and no plans for additional cardiac w/u at this time. Patient had no active signs of bleeding since admission. GI performed upper endoscopy for further evaluation which revealed mild patchy erythema in the antrum and patient was diagnosed with nonerosive gastritis. The patient's diet was advanced and oral anticoagulation resumed. Patient will be discharged with PPI and is to follow-up as an outpatient. Dedicated discharge time 35 minutes. Disposition: TO HOME OR SELFCARE Time spent for discharge: 35 - Discharge Diagnoses (1) Acute alcohol intoxication Status: Acute Qualifiers: Complication of substance-induced condition: uncomplicated Qualified Code(s): F10.920 - Alcohol use, unspecified with intoxication, uncomplicated (2) Chest pain Status: Acute Qualifiers: Chest pain type: unspecified Qualified Code(s): R07.9 - Chest pain, unspecified (3) Hypertension Status: Chronic Qualifiers: Hypertension type: essential hypertension Qualified Code(s): I10 - Essential (primary) hypertension (4) CAD (coronary artery disease) Status: Chronic Qualifiers: Coronary Disease-Associated Artery/Lesion type: [place] artery [place] vs. transplanted heart: [place] heart Associated angina: angina presence unspecified Qualified Code(s): I25.10 - Atherosclerotic heart disease of [place] coronary artery without angina pectoris Core Measure Documentation - Palliative Care Palliative Care/ Comfort Measures: Not Applicable - Core Measures Any of the following diagnoses?: none Exam - Constitutional Vitals: Temp Pulse Resp BP Pulse Ox 98.1 F 76 18 158/89 99 09/28/19 07:34 09/28/19 09:00 09/28/19 07:34 09/28/19 07:34 09/28/19 09:53 General appearance: Present: no acute distress, well-nourished - EENT Eyes: Present: PERRL ENT: hearing intact, clear oral mucosa - Neck Neck: Present: supple, normal ROM - Respiratory Respiratory effort: normal Respiratory: bilateral: CTA - Cardiovascular Heart Sounds: Present: S1 & S2. Absent: rub, click - Extremities Extremities: pulses symmetrical, No edema Peripheral Pulses: within normal limits - Abdominal General gastrointestinal: Present: soft, non-tender, non-distended, normal bowel sounds Male genitourinary: Present: normal - Integumentary Integumentary: Present: clear, warm, dry - Musculoskeletal Musculoskeletal: gait normal, strength equal bilaterally - Psychiatric Psychiatric: appropriate mood/affect, intact judgment & insight - Neurologic Neurologic: CNII-XII intact, moves all extremities Plan Activity: advance as tolerated Weight Bearing Status: Weight Bear as Tolerated Diet: regular Follow up with: PRIMARY CARE, [Primary Care Provider] - 7 Days DANAE BAUTISTA MD [Staff Physician] - 7 Days LEANN KEARNEY MD [Staff Physician] - 7 Days Prescriptions: amLODIPine 10 mg PO DAILY #30 amLODIPine 10 mg PO QDAY #30 tablet Aspirin [Aspirin BABY CHEW TAB] 81 mg PO QDAY #30 Losartan [Cozaar] 100 mg PO QDAY #30 tablet Losartan/Hydrochlorothiazide [Losartan-Hctz 100-25 mg Tab] 1 each PO QDAY #30 Metoprolol Xl [Metoprolol SUCCINATE ER TAB] 100 mg PO QDAY #30 Metoprolol Xl [Metoprolol SUCCINATE ER TAB] 100 mg PO QDAY #30 tablet Pantoprazole [Protonix TAB] 40 mg PO BID #60 tablet Pantoprazole [Protonix TAB] 40 mg PO QDAY #30 tablet Rivaroxaban [Xarelto] 20 mg PO QDAY #30 tab
[2019-09-28] MEDS: LOSARTAN 50 MG TAB PO SCH (10:42)
[2019-09-28] MEDS: amLODIPine 10 MG TAB PO SCH (10:43)
[2019-09-28 10:44] VITALS: BP 154/82
[2019-09-28] MEDS: HEPARIN 5,000 UNIT/1 ML VIAL SUB-Q SCH (10:44)
--- NOTE | 2019-09-28 12:08 | Progress Note ---
Assessment and Plan The patient is stable from a cardiac standpoint and may be discharged home from our perspective. Will hold on resuming OAC d/t h/o noncompliance and h/o GIB. Continue other cardiac medications. Follow up with primary manager food at [place] in 7-10 days. - Patient Problems (1) Abdominal pain Current Visit: Yes Status: Acute (2) Chest pain Current Visit: Yes Status: Acute Qualifiers: Chest pain type: unspecified Qualified Code(s): R07.9 - Chest pain, unspecified (3) Alcohol abuse Current Visit: Yes Status: Chronic (4) CAD (coronary artery disease) Current Visit: Yes Status: Chronic Qualifiers: Coronary Disease-Associated Artery/Lesion type: [place] artery [place] vs. transplanted heart: [place] heart Associated angina: angina presence unspecified Qualified Code(s): I25.10 - Atherosclerotic heart disease of [place] coronary artery without angina pectoris (5) CKD (chronic kidney disease) Current Visit: Yes Status: Chronic (6) History of GI bleed Current Visit: Yes Status: Chronic (7) History of coronary artery bypass graft Current Visit: Yes Status: Chronic (8) Hypertension Current Visit: Yes Status: Chronic Qualifiers: Hypertension type: essential hypertension Qualified Code(s): I10 - Essential (primary) hypertension (9) Ischemic cardiomyopathy Current Visit: Yes Status: Chronic (10) Paroxysmal atrial fibrillation Current Visit: Yes Status: Chronic (11) Peptic ulcer Current Visit: Yes Status: Chronic (12) Chest pain Current Visit: No Status: Resolved Qualifiers: Chest pain type: other chest pain Qualified Code(s): R07.89 - Other chest pain; R07.8 - Other chest pain Subjective Date of service: 09/28/19 Interval history: The patient is standing in the room in [facility]. He has no cardiac complaints. He states he will be compliant with all medical recommendations moving forward. Telemetry reviewed - SR in . Objective Last Vital Signs Temp 98.1 F 09/28/19 07:34 Pulse 78 09/28/19 10:45 Resp 18 09/28/19 07:34 BP 154/82 09/28/19 10:45 Pulse Ox 99 09/28/19 09:53 - Physical Examination General: No Apparent Distress HEENT: Positive: PERRL, Normocephaly, Mucus Membranes Moist Neck: Positive: neck supple, trachea midline Cardiac: Positive: Reg Rate and Rhythm Lungs: Positive: Normal Exam Neuro: Positive: Grossly Intact Abdomen: Positive: Tender (epigastric) Skin: Negative: Rash Musculoskeletal: No Pain Extremities: Present: normal. Absent: edema - Imaging and Cardiology EKG: report reviewed, image reviewed Echo: report reviewed (09/17/2019 showed EF 35-40%, mild to mod LVH, abnormal diastolic function, mild MR.) - EKG Sinus rhythms and dysrhythmias: sinus rhythm Repolarization changes or abnormalities: repolarization abn secondary to ventricular hypertrophy
--- NOTE | 2019-09-28 12:33 | Gastroenterology Progress Note ---
Assessment and Plan 1.substernal CP/epigastric pain 2.H/o recurrent PUD 3.ETOH abuse -afebrile -WBC WNL -plt WNL -H/H WNL -continue to monitor and transfuse as needed -no active signs of bleeding -s/p EGD yesterday (09/27/19) that showed mild patchy erythema in antrum, otherwise normal -clinically, patient reports feeling better today with epigastric pain improved. No N/V. Tolerating diet. -okay to resume systemic AC as needed per cardiology recommendations -continue PPI and supportive care -alcohol cessation discussed with patient -patient okay to be d/c per GI standpoint with f/u with primary GI at [facility] upon d/c -will sign off, please call if needed Subjective Date of service: 09/28/19 Principal diagnosis: epigastric pain Interval history: No acute distress. Reports feeling better with epigastric pain improved. No N/v or signs of bleeding. Tolerating diet. Objective - Constitutional Vitals: Temp Pulse Resp BP Pulse Ox 98.1 F 78 18 154/82 99 09/28/19 07:34 09/28/19 10:45 09/28/19 07:34 09/28/19 10:45 09/28/19 09:53 General appearance: no acute distress - EENT Eyes: PERRL, EOM intact ENT: hearing intact - Respiratory Respiratory effort: normal - Cardiovascular Rhythm: regular - Gastrointestinal General gastrointestinal: Present: soft, non-tender, non-distended, normal bowel sounds - Neurologic Neurological: alert and oriented x3 - Labs CBC & Chem 7: 09/26/19 19:51 09/26/19 19:51
--- NOTE | 2019-09-28 16:52 | Post Anesthesia Evaluation ---
- Post Anesthesia Evaluation Patient Participated: Yes Airway Patent: Yes Stable Respiratory Function: Yes Nausea/Vomiting: No Temp > 96.8F: Yes Pain Manageable: Yes Adequeate Hydration: Yes Anesthesia Complications: No Block Receding Appropriately: Not Applicable Patient on Ventilator: No
== END 2019-09-28 13:25 | disposition home or self-care (01) ==
LOC: EEVIPCON 19:05 → ED 19:05 → 4A 22:36
PROVIDERS: ADMIT Internal Medicine; ATTEND Hospitalist
DX: R07.89 Other chest pain (principal); R10.13 Epigastric pain; F10.129 Alcohol abuse with intoxication, unspecified; I12.9 Hypertensive chronic kidney disease with stage 1 through stage 4 chronic kidney disease, or unspecified chronic kidney disease; N18.9 Chronic kidney disease, unspecified; K27.9 Peptic ulcer, site unspecified, unspecified as acute or chronic, without hemorrhage or perforation; I48.0 Paroxysmal atrial fibrillation; I25.10 Atherosclerotic heart disease of native coronary artery without angina pectoris; I25.2 Old myocardial infarction; F10.10 Alcohol abuse, uncomplicated; Z87.19 Personal history of other diseases of the digestive system; Z95.1 Presence of aortocoronary bypass graft; Z79.82 Long term (current) use of aspirin; Z79.01 Long term (current) use of anticoagulants; Z79.899 Other long term (current) drug therapy; Z88.5 Allergy status to narcotic agent; Z88.6 Allergy status to analgesic agent
CPT/HCPCS: 36415; 43235; 71045; 71275; 80053; 80307; 81001; 82550; 82553; 84484; 85025; 87116; 93005; 93010; 96365; 96366; 96372; 96375; 96376; 99291; G0378; J1644; J2060; J2270; J2405; J2704; J3411; J7030; Q9967; 80320; G0480

== ENCOUNTER 2019-11-05 16:11 | Emergency (ER) | payer MEDICARE ==
[2019-11-05] MEDS ORDERED: ACETAMINOPHEN 500 MG TAB PO ONE (18:54)
--- NOTE | 2019-11-05 18:59 | Emergency Department Report ---
ED Lower Extremity HPI - General Chief Complaint: Extremity Injury, Lower Stated Complaint: HBP Time Seen by Provider: 11/05/19 18:47 Source: patient, EMS Mode of arrival: Wheelchair Limitations: No Limitations - History of Present Illness Initial Comments: Mr. Freedman is a 74-year-old male with history of alcohol abuse, chronic kidney disease, coronary artery disease history of CABG, peptic ulcer disease, cardiomyopathy, paroxysmal atrial fibrillation, hypertension, GI bleed who presents with left knee pain. 2 weeks ago he injured his left knee in a fall. He was diagnosed with a knee fracture at [facility]. He has knee immobilizer in place. No new injuries or fall. He just desires something for pain. He drank 4 large beers prior to arrival per EMS. He ambulates with knee immobilizer without crutches. He has not received any orthopedic follow-up. MD Complaint: fall -: week(s) (2) Injury: Knee: Left Type of Injury: other (fall) Place: home Severity: moderate Improves With: nothing Worsens With: palpation Context: fall Associated Symptoms: ambulatory - Related Data Previous Rx's Medication Instructions Recorded Last Taken Type Aspirin 325 mg PO QDAY tablet 09/27/19 Unknown Rx Aspirin [Aspirin BABY CHEW TAB] 81 mg PO QDAY #30 09/27/19 Unknown Rx Losartan/Hydrochlorothiazide 1 each PO QDAY #30 09/27/19 Unknown Rx [Losartan-Hctz 100-25 mg Tab] Metoprolol Xl [Metoprolol 100 mg PO QDAY #30 09/27/19 Unknown Rx SUCCINATE ER TAB] Pantoprazole [Protonix TAB] 40 mg PO BID #60 tablet 09/27/19 Unknown Rx amLODIPine 10 mg PO DAILY #30 09/27/19 Unknown Rx Losartan [Cozaar] 100 mg PO QDAY #30 tablet 09/28/19 Unknown Rx Metoprolol Xl [Metoprolol 100 mg PO QDAY #30 tablet 09/28/19 Unknown Rx SUCCINATE ER TAB] Pantoprazole [Protonix TAB] 40 mg PO QDAY #30 tablet 09/28/19 Unknown Rx Rivaroxaban [Xarelto] 20 mg PO QDAY #30 tab 09/28/19 Unknown Rx amLODIPine 10 mg PO QDAY #30 tablet 09/28/19 Unknown Rx HYDROcodone/APAP 5-325 [[place] 1 each PO Q6HR PRN #10 tablet 11/05/19 Unknown Rx 5/325] Allergies Allergy/AdvReac Type Severity Reaction Status Date / Time codeine Allergy Rash Verified 11/05/19 17:30 tramadol Allergy Rash Verified 11/05/19 17:30 ED Review of Systems ROS: Stated complaint: HBP Other details as noted in HPI Comment: All other systems reviewed and negative Constitutional: denies: fever, malaise Respiratory: denies: cough Cardiovascular: denies: chest pain Gastrointestinal: denies: abdominal pain, nausea, vomiting ED Past Medical Hx - Past Medical History Previous Medical History?: Yes Hx Hypertension: Yes Hx Heart Attack/AMI: Yes Hx Liver Disease: No Hx Renal Disease: Yes (CKD) Additional medical history: gastric ulcer. ETOH abuse. CAD - Surgical History Past Surgical History?: Yes Hx Coronary Stent: Yes Hx Open Heart Surgery: Yes Additional Surgical History: Neck surgery - Social History Smoking Status: Never Smoker Substance Use Type: Alcohol - Medications Home Medications: Home Medications Medication Instructions Recorded Confirmed Last Taken Type Aspirin 325 mg PO QDAY tablet 09/27/19 Unknown Rx Aspirin [Aspirin BABY CHEW TAB] 81 mg PO QDAY #30 09/27/19 Unknown Rx Losartan/Hydrochlorothiazide 1 each PO QDAY #30 09/27/19 Unknown Rx [Losartan-Hctz 100-25 mg Tab] Metoprolol Xl [Metoprolol 100 mg PO QDAY #30 09/27/19 Unknown Rx SUCCINATE ER TAB] Pantoprazole [Protonix TAB] 40 mg PO BID #60 tablet 09/27/19 Unknown Rx amLODIPine 10 mg PO DAILY #30 09/27/19 Unknown Rx Losartan [Cozaar] 100 mg PO QDAY #30 tablet 09/28/19 Unknown Rx Metoprolol Xl [Metoprolol 100 mg PO QDAY #30 tablet 09/28/19 Unknown Rx SUCCINATE ER TAB] Pantoprazole [Protonix TAB] 40 mg PO QDAY #30 tablet 09/28/19 Unknown Rx Rivaroxaban [Xarelto] 20 mg PO QDAY #30 tab 09/28/19 Unknown Rx amLODIPine 10 mg PO QDAY #30 tablet 09/28/19 Unknown Rx HYDROcodone/APAP 5-325 [[place] 1 each PO Q6HR PRN #10 tablet 11/05/19 Unknown Rx 5/325] ED Physical Exam - General Limitations: No Limitations General appearance: alert, in no apparent distress, other (alert insightful steady gait) - Head Head exam: Present: atraumatic, normocephalic - Eye Eye exam: Present: conjunctival injection. Absent: scleral icterus, nystagmus, periorbital swelling - ENT ENT exam: Present: mucous membranes moist - Neck Neck exam: Present: normal inspection, full ROM - Respiratory Respiratory exam: Present: normal lung sounds bilaterally. Absent: respiratory distress, wheezes, rales, rhonchi - Cardiovascular Cardiovascular Exam: Present: regular rate, normal rhythm, normal heart sounds. Absent: systolic murmur, diastolic murmur, rubs, gallop - GI/Abdominal GI/Abdominal exam: Present: soft, normal bowel sounds. Absent: distended, tenderness, guarding - Rectal Rectal exam: Present: deferred - Extremities Exam Extremities exam: Present: other (left knee immobilizer in place present on the lower extremity distal pedal pulses intact no obvious swelling or deformity of the left knee) - Back Exam Back exam: Present: normal inspection - Neurological Exam Neurological exam: Present: alert, oriented X3, normal gait - Psychiatric Psychiatric exam: Present: normal affect, normal mood - Skin Skin exam: Present: warm, dry, intact, normal color. Absent: rash ED Course Vital Signs 11/05/19 18:05 Temperature 98.9 F Pulse Rate 87 Respiratory 18 Rate Blood Pressure 189/109 [Left] O2 Sat by Pulse 97 Oximetry ED Lower Extremity MDM - Medical Decision Making 1. History of left knee fracture: Mr. Freedman hx required extensive medication review. He has previously been treated for peptic ulcer disease on Protonix and arrhythmia on Xarelto. I have prescribed [place] to avoid drug interactions with NSAIDs. He was referred to our orthopedic surgeon business relations manager. 2. Alcohol ingestion: At this time patient appears clinically sober. He is alert with steady gait. He is stable for home. Critical care attestation.: If time is entered above; I have spent that time in minutes in the direct care of this critically ill patient, excluding procedure time. ED Disposition Clinical Impression: Left leg injury, Alcohol ingestion Disposition: DC-01 TO HOME OR SELFCARE Is pt being admited?: No Does the pt Need Aspirin: No Condition: Stable Additional Instructions: Please follow up with our orthopedic surgeon. Please make an appointment. Prescriptions: HYDROcodone/APAP 5-325 [[place] 5/325] 1 each PO Q6HR PRN #10 tablet PRN Reason: Pain Referrals: CAREN KLEIN MD [Staff Physician] - 3-5 Days
[2019-11-05 20:34] VITALS: BP 186/100
== END 2019-11-05 20:34 | disposition home or self-care (01) ==
LOC: ED 16:11
DX: S89.92XA Unspecified injury of left lower leg, initial encounter (principal); F10.129 Alcohol abuse with intoxication, unspecified; I12.9 Hypertensive chronic kidney disease with stage 1 through stage 4 chronic kidney disease, or unspecified chronic kidney disease; N18.9 Chronic kidney disease, unspecified; Z98.890 Other specified postprocedural states; Z95.5 Presence of coronary angioplasty implant and graft; Z79.899 Other long term (current) drug therapy; Z88.5 Allergy status to narcotic agent; Z88.8 Allergy status to other drugs, medicaments and biological substances; W19.XXXA Unspecified fall, initial encounter; Y93.89 Activity, other specified; Y92.009 Unspecified place in unspecified non-institutional (private) residence as the place of occurrence of the external cause; Y99.8 Other external cause status

== ENCOUNTER 2020-03-14 00:27 | Observation (INO) | payer MEDICARE ==
--- NOTE | 2020-03-14 00:55 | Emergency Department Report ---
ED Chest Pain HPI - General Chief Complaint: Chest Pain Stated Complaint: CHEST PAIN Time Seen by Provider: 03/14/20 00:52 Source: patient, EMS Mode of arrival: Stretcher Limitations: No Limitations - History of Present Illness Initial Comments: Patient is a 74-year-old male who presents emergency room with complaints of chest pain. Patient states his chest pain started approximately 6 hours ago. Patient states he was doing yard work when the chest pain started. Patient states after he felt the chest pain the patient started drinking fireball. P atient states the chest pain is a 5 out of 10. Patient states the pain is better with rest and worse with exertion. Patient denies shortness of breath. Patient states he has extensive cardiac history to include CAD with stents. Patient denies fever and chills Patient denies recent travel. Patient denies recent international travel. Patient denies exposure to the novel coronavirus. Patient denies sick contacts. Patient denies fever and chills. Patient denies cough. Patient denies diar fernando. Patient denies coming in contact with anybody with symptoms of the novel coronavirus. Report received from EMS. EMS states the patient was found to have severely elevated blood pressure and was given aspirin and 3 of nitro. EMS states that the blood pressure improved after the nitro. MD Complaint: chest pain Onset: during exertion Pain Location: substernal Pain Radiation: none Severity: moderate Severity scale (0 -10): 5 Quality: sharp Consistency: constant Improves With: rest Worsens With: exertion re: denies: nausea, vomting, diaphoresis, dyspnea, sense of impending doom Other Symptoms: denies: cough, fever, syncope, rash, acid taste in mouth, leg swelling, palpitations, burping Treatments Prior to Arrival: aspirin, nitroglycerin Aspirin use within the Past 7 Days: (1) Yes - Related Data On Oral Contraceptives: No Home Medications Medication Instructions Recorded Confirmed Last Taken Ferrous Sulfate [Iron 325 MG] 1 tab PO DAILY 02/04/20 02/04/20 02/03/20 10:00 Gabapentin 300 mg PO HS 02/04/20 02/04/20 02/03/20 21:00 methOCARBAMOL [Robaxin TAB] 750 mg PO BID 02/04/20 02/04/20 02/03/20 10:00 Previous Rx's Medication Instructions Recorded Last Taken Type Pantoprazole [Protonix TAB] 40 mg PO BID #60 tablet 09/27/19 02/03/20 10:00 Rx amLODIPine 10 mg PO DAILY #30 09/27/19 02/03/20 10:00 Rx HYDROcodone/APAP 5-325 [[place] 1 each PO Q6HR PRN #10 tablet 11/05/19 Unknown Rx 5-325 mg TAB] Aspirin [Aspirin BABY CHEW TAB] 81 mg PO QDAY #30 tab.chew 02/09/20 Unknown Rx AtorvaSTATin [Lipitor] 40 mg PO QHS #30 tablet 02/09/20 Unknown Rx Clopidogrel [Plavix] 75 mg PO QDAY #30 tablet 02/09/20 Unknown Rx Folic Acid [Folvite] 1 mg PO QDAY #30 tablet 02/09/20 Unknown Rx Losartan [Cozaar] 100 mg PO QDAY #30 tablet 02/09/20 Unknown Rx Metoprolol Xl [Metoprolol 100 mg PO QDAY #30 02/09/20 Unknown Rx SUCCINATE ER TAB] Rivaroxaban [Xarelto] 20 mg PO QDDIAB #30 tablet 02/09/20 Unknown Rx Allergies Allergy/AdvReac Type Severity Reaction Status Date / Time codeine Allergy Rash Verified 11/05/19 17:30 tramadol Allergy Rash Verified 11/05/19 17:30 Heart Score - HEART Score History: Moderately suspicious EKG: Non-specific Age: > 65 Risk factors: > 3 risk factors or hx of atherosclerotic disease Troponin: < normal limit HEART Score: 6 ED Review of Systems ROS: Stated complaint: CHEST PAIN Other details as noted in HPI Constitutional: denies: chills, fever Eyes: denies: eye pain, eye discharge, vision change ENT: denies: ear pain, throat pain Respiratory: denies: cough, shortness of breath, wheezing Cardiovascular: chest pain. denies: palpitations Endocrine: no symptoms reported Gastrointestinal: denies: abdominal pain, nausea, diarrhea Genitourinary: denies: urgency, dysuria Musculoskeletal: denies: back pain, joint swelling, arthralgia Skin: denies: rash, lesions Neurological: denies: headache, weakness, paresthesias Psychiatric: denies: anxiety, depression Hematological/Lymphatic: denies: easy bleeding, easy bruising ED Past Medical Hx - Past Medical History Previous Medical History?: Yes Hx Hypertension: Yes Hx Heart Attack/AMI: Yes Hx Liver Disease: No Hx Renal Disease: Yes (CKD) Additional medical history: gastric ulcer. ETOH abuse. CAD - Surgical History Past Surgical History?: Yes Hx Coronary Stent: Yes Hx Open Heart Surgery: Yes Additional Surgical History: Neck surgery, CABG - Family History Family history: no significant - Social History Smoking Status: Never Smoker Substance Use Type: Alcohol - Medications Home Medications: Home Medications Medication Instructions Recorded Confirmed Last Taken Type Pantoprazole [Protonix TAB] 40 mg PO BID #60 tablet 09/27/19 02/04/20 02/03/20 10:00 Rx amLODIPine 10 mg PO DAILY #30 09/27/19 02/04/20 02/03/20 10:00 Rx HYDROcodone/APAP 5-325 [[place] 1 each PO Q6HR PRN #10 tablet 11/05/19 02/04/20 Unknown Rx 5-325 mg TAB] Ferrous Sulfate [Iron 325 MG] 1 tab PO DAILY 02/04/20 02/04/20 02/03/20 10:00 History Gabapentin 300 mg PO HS 02/04/20 02/04/20 02/03/20 21:00 History methOCARBAMOL [Robaxin TAB] 750 mg PO BID 02/04/20 02/04/20 02/03/20 10:00 History Aspirin [Aspirin BABY CHEW TAB] 81 mg PO QDAY #30 tab.chew 02/09/20 Unknown Rx AtorvaSTATin [Lipitor] 40 mg PO QHS #30 tablet 02/09/20 Unknown Rx Clopidogrel [Plavix] 75 mg PO QDAY #30 tablet 02/09/20 Unknown Rx Folic Acid [Folvite] 1 mg PO QDAY #30 tablet 02/09/20 Unknown Rx Losartan [Cozaar] 100 mg PO QDAY #30 tablet 02/09/20 Unknown Rx Metoprolol Xl [Metoprolol 100 mg PO QDAY #30 02/09/20 Unknown Rx SUCCINATE ER TAB] Rivaroxaban [Xarelto] 20 mg PO QDDIAB #30 tablet 02/09/20 Unknown Rx ED Physical Exam - General Limitations: No Limitations General appearance: alert, in no apparent distress - Head Head exam: Present: atraumatic, normocephalic - Eye Eye exam: Present: normal appearance - ENT ENT exam: Present: mucous membranes moist - Neck Neck exam: Present: normal inspection - Respiratory Respiratory exam: Present: normal lung sounds bilaterally. Absent: respiratory distress - Cardiovascular Cardiovascular Exam: Present: regular rate, normal rhythm. Absent: systolic murmur, diastolic murmur, rubs, gallop - GI/Abdominal GI/Abdominal exam: Present: soft, normal bowel sounds - Rectal Rectal exam: Present: deferred - Extremities Exam Extremities exam: Present: normal inspection - Back Exam Back exam: Present: normal inspection - Neurological Exam Neurological exam: Present: alert, oriented X3 - Psychiatric Psychiatric exam: Present: normal affect, normal mood - Skin Skin exam: Present: warm, dry, intact, normal color. Absent: rash ED Course Vital Signs 03/14/20 03/14/20 03/14/20 00:46 00:48 00:53 Temperature 98.7 F Pulse Rate 81 Respiratory 19 18 Rate Blood Pressure 171/98 O2 Sat by Pulse 100 100 Oximetry - Reevaluation(s) Reevaluation #1: Patient states his chest pain is little better. I discussed all results with patient. I discussed plan of care with patient. Patient agrees with plan of care and admission. Patient to be admitted to the hospitalist service. 03/14/20 02:27 - Consultations Consultation #1: Hospitalist consulted for admission. Hospitalist to admit patient. Bridge ord ers placed. 03/14/20 02:28 SAURABH score - Saurabh Score Age > 65: (1) Yes Aspirin use within the Past 7 Days: (1) Yes 3 or more CAD Risk Factors: (1) Yes 2 or more Angina events in past 24 hrs: (0) No Known CAD with more than 50% Stenosis: (0) No Elevated Cardiac Markers: (0) No ST Deviation Greater than 0.5mm: (0) No SAURABH Score: 3 ED Medical Decision Making - Lab Data Result diagrams: 03/14/20 01:01 03/14/20 01:01 - EKG Data -: EKG Interpreted by Ri EKG shows normal: sinus rhythm, axis, intervals, QRS complexes, ST-T waves Rate: normal - EKG Data Interpretation: LVH - Radiology Data Radiology results: report reviewed CHEST 1 VIEW 03/14/2020 12:16 AM INDICATION / CLINICAL INFORMATION: Chest Pain. COMPARISON: 02/09/20 FINDINGS: SUPPORT DEVICES: None. HEART / MEDIASTINUM: No significant abnormality. LUNGS / PLEURA: No acute airspace disease. Mild left pleural thickening is unchanged. No pneumothorax. ADDITIONAL FINDINGS: No significant additional findings. IMPRESSION: 1. No acute findings. No change. - Medical Decision Making Patient is a 74-year-old male that presents emergency room with complaints of chest pain. Patient states chest pain started on exertion. Patient has a long history of CAD and cardiac stents. Patient blood pressure found to be si gnificantly high. Patient's blood pressure improved prior to arrival with EMS given 3 nitro and aspirin. Patient was given morphine in the ER. Patient chest pain improved. Patient admitted to the hospital service to rule out ACS and further evaluation treatment. Patient's chest x-ray negative. Patient's EKG negative for STEMI. - Differential Diagnosis acs. cp. chest wall pain. Critical Care Time: Yes Critical care time in (mins) excluding proc time.: 35 Critical care attestation.: If time is entered above; I have spent that time in minutes in the direct care of this critically ill patient, excluding procedure time. Critical Care Time: 35 minutes ED Disposition Clinical Impression: Chest pain Qualifiers: Chest pain type: unspecified Qualified Code(s): R07.9 - Chest pain, unspecified CAD (coronary artery disease) Qualifiers: Coronary Disease-Associated Artery/Lesion type: [place] artery [place] vs. transplanted heart: [place] heart Associated angina: angina presence unspecified Qualified Code(s): I25.10 - Atherosclerotic heart disease of [place] coronary artery without angina pectoris Disposition: OP ADMIT IP TO THIS HOSP Is pt being admited?: Yes Does the pt Need Aspirin: No Condition: Critical Time of Disposition: 02:33
[2020-03-14] MEDS ORDERED: MORPHINE 4 MG/1 ML INJ IV ONE (01:00)
[2020-03-14 01:12] LABS: Mean Corpuscular HGB Conc 33 % (32-34); Mean Corpuscular Volume 95 fl (84-94); Platelet Count 178 K/mm3 (140-440); Red Blood Count 3.47 M/mm3 (3.65-5.03); Red Cell Distribution Width 14.6 % (13.2-15.2)
--- NOTE | 2020-03-14 01:26 | XRay Report ---
CHEST 1 VIEW 03/14/2020 12:16 AM INDICATION / CLINICAL INFORMATION: Chest Pain. COMPARISON: 02/09/20 FINDINGS: SUPPORT DEVICES: None. HEART / MEDIASTINUM: No significant abnormality. LUNGS / PLEURA: No acute airspace disease. Mild left pleural thickening is unchanged. No pneumothorax . ADDITIONAL FINDINGS: No significant additional findings. IMPRESSION: 1. No acute findings. No change. Signer Name: Houston Dow MD Signed: 03/14/2020 1:21 AM Workstation Name: [id number]
[2020-03-14 01:35] LABS: Alanine Aminotransferase 38 units/L (7-56); Albumin 4.1 g/dL (3.9-5); BUN/Creatinine Ratio 14; Blood Urea Nitrogen 19 mg/dL (9-20); Calcium 8.7 mg/dL (8.4-10.2); Hemolysis Index 3
[2020-03-14 02:50] LABS: Bacteria,Urine 1+ /HPF (Negative); Bilirubin,Urine NEG (Negative); Blood,Urine SM (Negative); Color,Urine Straw (Yellow); Urobilinogen,Urine < 2.0 mg/dL (<2.0)
[2020-03-14 03:08] LABS: Amphetamine Screen,Urine PRESUMPTIVE NEGATIVE; Benzodiazepines Screen,Urine PRESUMPTIVE NEGATIVE; Cannabinoid Screen,Urine PRESUMPTIVE NEGATIVE; Cocaine Screen,Urine PRESUMPTIVE NEGATIVE; Methadone Screen,Urine PRESUMPTIVE NEGATIVE; Opiate Screen,Urine PRESUMPTIVE NEGATIVE
[2020-03-14 04:00] LABS: Anisocytosis 1+; Basophils % (Manual) 0 % (0.0-1.8); Eosinophils % (Manual) 0 % (0.0-4.3); Total Cells Counted 100
[2020-03-14 04:01] LABS: Macrocytosis 1+; Platelet Estimate Consistent w Auto
--- NOTE | 2020-03-14 06:02 | History and Physical Report ---
History of Present Illness Date of examination: 03/14/20 Date of admission: 03/14/20 02:36 Chief complaint: Chest pain since 6 hours History of present illness: 74-year-old -[place] male with history of severe coronary artery disease and s/p 3 stents-2 stents last year and 1 stent this year comes in for chest pain of 6 hours duration. Patient was doing yard work when the chest pain started. Patient had a fireball after chest pain started before getting relief. Chest pain is about 5-6 on a scale of 1-10 sharp in character. No shortness of breath. No palpitations or diaphoresis. No syncope. No radiation of the chest pain to left arm or neck. Exertion is a precipitating factor/exacerbating factor. Rest is a relieving factor. Heart score is about 6. Patient is more than 65-year-old and has 3 risk factors and troponin is within normal limits. No exposure to coronavirus No fever. Last few admissions reviewed. Last discharge was on 02/09/2020 Patient had PCI of PDA/RCA on and was discharged on dual antiplatelet therapy including Xarelto and Plavix. Aspirin for 1 month. Past Medical History Previous Medical History?: Yes Hypertension: Yes Heart Attack/AMI: Yes Renal Disease: Yes (CKD) Additional medical history: gastric ulcer. ETOH abuse. CAD Surgical History Past Surgical History?: Yes Coronary Stentx3 Open Heart Surgery: Yes Additional Surgical History: Neck surgery, CABG Family History Family history: no significant Social History Smoking Status: Never Smoker Substance Use Type: Alcohol Medications Home Medications: Home Medications Medication Instructions Recorded Confirmed Last Taken Type Pantoprazole [Protonix TAB] 40 mg PO BID #60 tablet 09/27/19 02/04/20 02/03/20 10:00 Rx amLODIPine 10 mg PO DAILY #30 09/27/19 02/04/20 02/03/20 10:00 Rx HYDROcodone/APAP 5-325 [[place] 1 each PO Q6HR PRN #10 tablet 11/05/19 02/04/20 Un known Rx 5-325 mg TAB] Ferrous Sulfate [Iron 325 MG] 1 tab PO DAILY 02/04/20 02/04/20 02/03/20 10:00 History Gabapentin 300 mg PO HS 02/04/20 02/04/20 02/03/20 21:00 History methOCARBAMOL [Robaxin TAB] 750 mg PO BID 02/04/20 02/04/20 02/03/20 10:00 History Aspirin [Aspirin BABY CHEW TAB] 81 mg PO QDAY #30 tab.chew 02/09/20 Unknown Rx AtorvaSTATin [Lipitor] 40 mg PO QHS #30 tablet 02/09/20 Unknown Rx Clopidogrel [Plavix] 75 mg PO QDAY #30 tablet 02/09/20 Unknown Rx Folic Acid [Folvite] 1 mg PO QDAY #30 tablet 02/09/20 Unknown Rx Losartan [Cozaar] 100 mg PO QDAY #30 tablet 02/09/20 Unknown Rx Metoprolol Xl [Metoprolol 100 mg PO QDAY #30 02/09/20 Unknown Rx SUCCINATE ER TAB] Rivaroxaban [Xarelto] 20 mg PO QDDIAB #30 tablet 02/09/20 Unknown Rx Review of Systems ROS: Stated complaint: CHEST PAIN Other details as noted in HPI Constitutional: denies: chills, fever Eyes: denies: eye pain, eye discharge, vision change ENT: denies: ear pain, throat pain Respiratory: denies: cough, shortness of breath, wheezing Cardiovascular: chest pain. denies: palpitations Endocrine: no symptoms reported Gastrointestinal: denies: abdominal pain, nausea, diarrhea Genitourinary: denies: urgency, dysuria Musculoskeletal: denies: back pain, joint swelling, arthralgia Skin: denies: rash, lesions Neurological: denies: headache, weakness, paresthesias Psychiatric: denies: anxiety, depression Hematological/Lymphatic: denies: easy bleeding, easy bruising PUI?: No Medications and Allergies Allergies Allergy/AdvReac Type Severity Reaction Status Date / Time codeine Allergy Rash Verified 11/05/19 17:30 tramadol Allergy Rash Verified 11/05/19 17:30 Home Medications Medication Instructions Recorded Confirmed Last Taken Type Pantoprazole [Protonix TAB] 40 mg PO BID #60 tablet 09/27/19 03/14/20 02/03/20 10:00 Rx amLODIPine 10 mg PO DAILY #30 09/27/19 03/14/20 02/03/20 10:00 Rx HYDROcodone/APAP 5-325 [[place] 1 each PO Q6HR PRN #10 tablet 11/05/19 03/14/20 Unknown Rx 5-325 mg TAB] Ferrous Sulfate [Iron 325 MG] 1 tab PO DAILY 02/04/20 03/14/20 02/03/20 10:00 History Gabapentin 300 mg PO HS 02/04/20 03/14/20 02/03/20 21:00 History methOCARBAMOL [Robaxin TAB] 750 mg PO BID 02/04/20 03/14/20 02/03/20 10:00 History Aspirin [Aspirin BABY CHEW TAB] 81 mg PO QDAY #30 tab.chew 02/09/20 03/14/20 Unknown Rx AtorvaSTATin [Lipitor] 40 mg PO QHS #30 tablet 02/09/20 03/14/20 Unknown Rx Clopidogrel [Plavix] 75 mg PO QDAY #30 tablet 02/09/20 03/14/20 Unknown Rx Folic Acid [Folvite] 1 mg PO QDAY #30 tablet 02/09/20 03/14/20 Unknown Rx Losartan [Cozaar] 100 mg PO QDAY #30 tablet 02/09/20 03/14/20 Unknown Rx Metoprolol Xl [Metoprolol 100 mg PO QDAY #30 02/09/20 03/14/20 Unknown Rx SUCCINATE ER TAB] Rivaroxaban [Xarelto] 20 mg PO QDDIAB #30 tablet 02/09/20 03/14/20 Unknown Rx Exam - Constitutional Vitals: Temp Pulse Resp BP Pulse Ox 98.7 F 72 15 152/78 97 03/14/20 00:48 03/14/20 04:30 03/14/20 04:30 03/14/20 04:30 03/14/20 04:30 General appearance: Present: no acute distress, well-nourished - EENT Eyes: Present: PERRL ENT: hearing intact, clear oral mucosa - Neck Neck: Present: supple, normal ROM - Respiratory Respiratory effort: normal Respiratory: bilateral: CTA - Cardiovascular Heart rate: 76 Rhythm: regular Heart Sounds: Present: S1 & S2. Absent: rub, click - Extremities Extremities: pulses symmetrical, No edema Peripheral Pulses: within normal limits - Abdominal General gastrointestinal: Present: soft, non-tender, non-distended, normal bowel sounds Male genitourinary: Present: normal - Rectal Rectal Exam: deferred - Integumentary Integumentary: Present: clear, warm, dry - Musculoskeletal Musculoskeletal: gait normal, strength equal bilaterally - Psychiatric Psychiatric: appropriate mood/affect, intact judgment & insight - Neurologic Neurologic: CNII-XII intact, moves all extremities - Allied Health Allied health notes reviewed: nursing, case management GARY score - Gary Score Age > 65: (1) Yes Aspirin use within the Past 7 Days: (1) Yes 3 or more CAD Risk Factors: (1) Yes 2 or more Angina events in past 24 hrs: (0) No Known CAD with more than 50% Stenosis: (1) Yes Elevated Cardiac Markers: (0) No ST Deviation Greater than 0.5mm: (0) No GARY Score: 4 Results - Labs CBC & Chem 7: 03/14/20 01:01 03/14/20 06:22 Labs: Laboratory Last Values WBC 5.8 K/mm3 (4.5-11.0) 03/14/20 01:01 RBC 3.47 M/mm3 (3.65-5.03) L 03/14/20 01:01 Hgb 11.0 gm/dl (11.8-15.2) L 03/14/20 01:01 Hct 33.0 % (35.5-45.6) L 03/14/20 01:01 MCV 95 fl (84-94) H 03/14/20 01:01 MCH 32 pg (28-32) 03/14/20 01:01 MCHC 33 % (32-34) 03/14/20 01:01 RDW 14.6 % (13.2-15.2) 03/14/20 01:01 Plt Count 178 K/mm3 (140-440) 03/14/20 01:01 Add Manual Diff Complete 03/14/20 01:01 Total Counted 100 03/14/20 01:01 Seg Neutrophils % Surgical Device Sales Representative 03/14/20 01:01 Seg Neuts % (Manual) 77.0 % (40.0-70.0) H 03/14/20 01:01 Band Neutrophils % 0 % 03/14/20 01:01 Lymphocytes % (Manual) 19.0 % (13.4-35.0) 03/14/20 01:01 Reactive Lymphs % (Man) 0 % 03/14/20 01:01 Monocytes % (Manual) 4.0 % (0.0-7.3) 03/14/20 01:01 Eosinophils % (Manual) 0 % (0.0-4.3) 03/14/20 01:01 Basophils % (Manual) 0 % (0.0-1.8) 03/14/20 01:01 Metamyelocytes % 0 % 03/14/20 01:01 Myelocytes % 0 % 03/14/20 01:01 Promyelocytes % 0 % 03/14/20 01:01 Blast Cells % 0 % 03/14/20 01:01 Nucleated RBC % Not Reportable 03/14/20 01:01 Seg Neutrophils # Man 4.5 K/mm3 (1.8-7.7) 03/14/20 01:01 Band Neutrophils # 0.0 K/mm3 03/14/20 01:01 Lymphocytes # (Manual) 1.1 K/mm3 (1.2-5.4) L 03/14/20 01:01 Abs React Lymphs (Man) 0.0 K/mm3 03/14/20 01:01 Monocytes # (Manual) 0.2 K/mm3 (0.0-0.8) 03/14/20 01:01 Eosinophils # (Manual) 0.0 K/mm3 (0.0-0.4) 03/14/20 01:01 Basophils # (Manual) 0.0 K/mm3 (0.0-0.1) 03/14/20 01:01 Metamyelocytes # 0.0 K/mm3 03/14/20 01:01 Myelocytes # 0.0 K/mm3 03/14/20 01:01 Promyelocytes # 0.0 K/mm3 03/14/20 01:01 Blast Cells # 0.0 K/mm3 03/14/20 01:01 WBC Morphology Not Reportable 03/14/20 01:01 Hypersegmented Neuts Not Reportable 03/14/20 01:01 Hyposegmented Neuts Not Reportable 03/14/20 01:01 Hypogranular Neuts Not Reportable 03/14/20 01:01 Smudge Cells Not Reportable 03/14/20 01:01 Toxic Granulation Not Reportable 03/14/20 01:01 Toxic Vacuolation Not Reportable 03/14/20 01:01 Dohle Bodies Not Reportable 03/14/20 01:01 Pelger-Huet Anomaly Not Reportable 03/14/20 01:01 Rochelle Rods Not Reportable 03/14/20 01:01 Platelet Estimate Consistent w auto 03/14/20 01:01 Clumped Platelets Not Reportable 03/14/20 01:01 Plt Clumps, EDTA Not Reportable 03/14/20 01:01 Large Platelets Not Reportable 03/14/20 01:01 Giant Platelets Not Reportable 03/14/20 01:01 Platelet Satelliting Not Reportable 03/14/20 01:01 Plt Morphology Comment Not Reportable 03/14/20 01:01 RBC Morphology Not Reportable 03/14/20 01:01 Dimorphic RBCs Not Reportable 03/14/20 01:01 Polychromasia Not Reportable 03/14/20 01:01 Hypochromasia Not Reportable 03/14/20 01:01 Poikilocytosis Not Reportable 03/14/20 01:01 Anisocytosis 1+ 03/14/20 01:01 Microcytosis Not Reportable 03/14/20 01:01 Macrocytosis 1+ 03/14/20 01:01 Spherocytes Not Reportable 03/14/20 01:01 Pappenheimer Bodies Not Reportable 03/14/20 01:01 Sickle Cells Not Reportable 03/14/20 01:01 Target Cells Not Reportable 03/14/20 01:01 Tear Drop Cells Not Reportable 03/14/20 01:01 Ovalocytes Not Reportable 03/14/20 01:01 Helmet Cells Not Reportable 03/14/20 01:01 [place] Bodies Not Reportable 03/14/20 01:01 Micro Rings Not Reportable 03/14/20 01:01 [place] Cells Not Reportable 03/14/20 01:01 Bite Cells Not Reportable 03/14/20 01:01 Crenated Cell Not Reportable 03/14/20 01:01 Elliptocytes Not Reportable 03/14/20 01:01 Acanthocytes (Spur) Not Reportable 03/14/20 01:01 Rouleaux Not Reportable 03/14/20 01:01 Hemoglobin C Crystals Not Reportable 03/14/20 01:01 Schistocytes Not Reportable 03/14/20 01:01 Malaria parasites Not Reportable 03/14/20 01:01 Rene Bodies Not Reportable 03/14/20 01:01 Hem Pathologist Commnt No 03/14/20 01:01 Sodium 131 mmol/L (137-145) L 03/14/20 01:01 Potassium 3.8 mmol/L (3.6-5.0) 03/14/20 01:01 Chloride 95.4 mmol/L (98-107) L 03/14/20 01:01 Carbon Dioxide 23 mmol/L (22-30) 03/14/20 01:01 Anion Gap 16 mmol/L 03/14/20 01:01 BUN 19 mg/dL (9-20) 03/14/20 01:01 Creatinine 1.4 mg/dL (0.8-1.5) 03/14/20 01:01 Estimated GFR > 60 ml/min 03/14/20 01:01 BUN/Creatinine Ratio 14 % 03/14/20 01:01 Glucose 103 mg/dL (75-100) H 03/14/20 01:01 Calcium 8.7 mg/dL (8.4-10.2) 03/14/20 01:01 Total Bilirubin 0.40 mg/dL (0.1-1.2) 03/14/20 01:01 AST 61 units/L (5-40) H 03/14/20 01:01 ALT 38 units/L (7-56) 03/14/20 01:01 Alkaline Phosphatase 57 units/L (35-129) 03/14/20 01:01 Troponin T 0.017 ng/mL (0.00-0.029) 03/14/20 04:09 Total Protein 7.0 g/dL (6.3-8.2) 03/14/20 01:01 Albumin 4.1 g/dL (3.9-5) 03/14/20 01:01 Albumin/Globulin Ratio 1.4 % 03/14/20 01:01 Urine Color Straw (Yellow) 03/14/20 02:30 Urine Turbidity Clear (Clear) 03/14/20 02:30 Urine pH 5.0 (5.0-7.0) 03/14/20 02:30 Ur Specific [place] 1.005 (1.003-1.030) 03/14/20 02:30 Urine Protein 30 mg/dl mg/dL (Negative) 03/14/20 02:30 Urine Glucose (UA) Neg mg/dL (Negative) 03/14/20 02:30 Urine Ketones Neg mg/dL (Negative) 03/14/20 02:30 Urine Blood Sm (Negative) 03/14/20 02:30 Urine Nitrite Neg (Negative) 03/14/20 02:30 Urine Bilirubin Neg (Negative) 03/14/20 02:30 Urine Urobilinogen < 2.0 mg/dL (<2.0) 03/14/20 02:30 Ur Leukocyte Esterase Neg (Negative) 03/14/20 02:30 Urine WBC (Auto) 1.0 /HPF (0.0-6.0) 03/14/20 02:30 Urine RBC (Auto) 3.0 /HPF (0.0-6.0) 03/14/20 02:30 Urine Bacteria (Auto) 1+ /HPF (Negative) 03/14/20 02:30 Urine Opiates Screen Presumptive negative 03/14/20 02:30 Urine Methadone Screen Presumptive negative 03/14/20 02:30 Ur Barbiturates Screen Presumptive negative 03/14/20 02:30 Ur Phencyclidine Scrn Presumptive negative 03/14/20 02:30 Ur Amphetamines Screen Presumptive negative 03/14/20 02:30 U Benzodiazepines Scrn Presumptive negative 03/14/20 02:30 Urine Cocaine Screen Presumptive negative 03/14/20 02:30 U Marijuana (THC) Screen Presumptive negative 03/14/20 02:30 Drugs of Abuse Note Disclamer 03/14/20 02:30 Short CBC 03/14/20 Range/Units 01:01 WBC 5.8 (4.5-11.0) K/mm3 Hgb 11.0 L (11.8-15.2) gm/dl Hct 33.0 L (35.5-45.6) % Plt Count 178 (140-440) K/mm3 BMP 03/14/20 01:01 Sodium 131 L Potassium 3.8 Chloride 95.4 L Carbon Dioxide 23 BUN 19 Creatinine 1.4 Glucose 103 H Calcium 8.7 Cardiac Enzymes 03/14/20 03/14/20 Range/Units 01:01 04:09 Troponin T 0.016 0.017 (0.00-0.029) ng/mL Liver Function 03/14/20 Range/Units 01:01 Total Bilirubin 0.40 (0.1-1.2) mg/dL AST 61 H (5-40) units/L ALT 38 (7-56) units/L Alkaline Phosphatase 57 (35-129) units/L Albumin 4.1 (3.9-5) g/dL Urine 03/14/20 Range/Units 02:30 Urine Color Straw (Yellow) Urine pH 5.0 (5.0-7.0) Ur Specific [place] 1.005 (1.003-1.030) Urine Protein 30 mg/dl (Negative) mg/dL Urine Glucose (UA) Neg (Negative) mg/dL - Imaging and Cardiology EKG: report reviewed (Sinus rhythm heart rate of 78/min) Chest x-ray: report reviewed Imaging and Cardiology: EKG Data -: EKG Interpreted by Me EKG shows normal: sinus rhythm, axis, intervals, QRS complexes, ST-T waves Rate: normal EKG Data Interpretation: [facility] Radiology Data Radiology results: report reviewed CHEST 1 VIEW 03/14/2020 12:16 AM IMPRESSION: 1. No acute findings. No change. Garza/IV: IV Catheter Type [Left Forearm INT / Saline Lock ] Assessment and Plan Advance Directives: Yes (Full code) VTE prophylaxis?: Chemical Plan of care discussed with patient/family: Yes - Patient Problems (1) Chest pain Current Visit: Yes Status: Acute Qualifiers: Chest pain type: unspecified Qualified Code(s): R07.9 - Chest pain, unspecified Plan to address problem: Patient had a PCI and February 08, 2020 of RCA/PDA Patient was doing well till yesterday Had chest pain while exertion We will get serial troponins and Lexiscan Also cardiology consult Patient has total of 3 stents 2 in 2018 and one in 2019 (2) CAD (coronary artery disease) Current Visit: Yes Status: Chronic Qualifiers: Coronary Disease-Associated Artery/Lesion type: [place] artery [place] vs. transplanted heart: [place] heart Associated angina: angina presence unspecified Qualified Code(s): I25.10 - Atherosclerotic heart disease of [place] coronary artery without angina pectoris Plan to address problem: Continue Plavix and Xarelto and atorvastatin (3) Hypertension Current Visit: No Status: Chronic Qualifiers: Hypertension type: essential hypertension Qualified Code(s): I10 - Essential (primary) hypertension Plan to address problem: Continue antihypertensives in the form of metoprolol and losartan. And amlodipine. We will trend the blood pressure May be noncompliant because blood pressure readings initially high and later became normal (4) Anticoagulation adequate Current Visit: Yes Status: Chronic Plan to address problem: Patient on Plavix and Xarelto patient to continue aspirin till March 12 which is over Will defer to cardiology Patient on Xarelto and Plavix because of the coronary artery disease and paroxysmal atrial fibrillation. (5) Paroxysmal atrial fibrillation Current Visit: Yes Status: Chronic Plan to address problem: Continue Xarelto (6) Hyperlipidemia Current Visit: Yes Status: Chronic Qualifiers: Hyperlipidemia type: mixed hyperlipidemia Qualified Code(s): E78.2 - Mixed hyperlipidemia Plan to address problem: Continue statins in the form of Lipitor 40 mg p.o. daily (7) Ischemic cardiomyopathy Current Visit: No Status: Chronic Plan to address problem: EF of 40% Stable Daily intake output and weights (8) GERD (gastroesophageal reflux disease) Current Visit: Yes Status: Chronic Qualifiers: Esophagitis presence: without esophagitis Qualified Code(s): K21.9 - Gastro-esophageal reflux disease without esophagitis Plan to address problem: On Protonix (9) DVT prophylaxis Current Visit: Yes Status: Acute Plan to address problem: Patient already on Xarelto and Plavix and pantoprazole (10) Hypokalemia Current Visit: Yes Status: Acute Plan to address problem: Supplemented (11) Hyponatremia Current Visit: Yes Status: Acute Plan to address problem: Mild Patient not on any diuretics Trend the sodium level Will defer to primary team
[2020-03-14] MEDS ORDERED: HYDROcodone/ACETAMINOPHEN 5-325 MG TAB PO PRN (06:11)
[2020-03-14] MEDS ORDERED: ACETAMINOPHEN 325 MG TAB PO PRN (06:13)
[2020-03-14] MEDS ORDERED: oxyCODONE /ACETAMINOPHEN 5-325MG TAB PO PRN (06:13)
[2020-03-14] MEDS ORDERED: ONDANSETRON 4 MG/2 ML INJ IV PRN (06:13)
[2020-03-14] MEDS ORDERED: HYDROmorphone 1 MG/1 ML INJ IV PRN (06:13)
[2020-03-14 07:25] LABS: BUN/Creatinine Ratio 13; Blood Urea Nitrogen 18 mg/dL (9-20); Calcium 8.9 mg/dL (8.4-10.2); Hemolysis Index 4
[2020-03-14] MEDS ORDERED: RIVAROXABAN 20 MG TAB PO SCH (08:00)
[2020-03-14] MEDS ORDERED: LOSARTAN 50 MG TAB PO SCH (08:00)
[2020-03-14] MEDS ORDERED: REGADENOSON 0.4 MG/5 ML INJ IV ONE ×2 (09:29→09:32)
[2020-03-14] MEDS ORDERED: FOLIC ACID 1 MG TAB PO SCH (10:00)
[2020-03-14] MEDS ORDERED: ASPIRIN 81 MG TAB CHEW PO SCH (10:00)
[2020-03-14] MEDS ORDERED: CLOPIDOGREL 75 MG TAB PO SCH (10:00)
[2020-03-14] MEDS ORDERED: FERROUS SULFATE 325 MG TAB PO SCH (10:00)
[2020-03-14] MEDS ORDERED: PANTOPRAZOLE 40 MG TAB PO SCH (10:00)
[2020-03-14] MEDS ORDERED: amLODIPine 10 MG TAB PO SCH (10:00)
[2020-03-14 11:42] VITALS: BP 183/99
--- NOTE | 2020-03-14 11:48 | Treadmill Report ---
NUCLEAR PERFUSION STUDY REASON FOR STUDY: Chest pain. IMAGING PROTOCOL: The patient received 10 mCi of Technetium 99m Tetrofosmin for resting image and 28 mCi of Technetium 99m Tetrofosmin for stress imaging. The imaging for the whole procedure was completed 30-90 minutes following the initial injection of Technetium 99m Tetrofosmin. The SPECT imaging in the 180 degree arc was performed in the right anterior oblique projection. Computerized reconstruction of the images was performed for analysis. IMAGING RESULTS: Normal cavity size from stress to rest. Normal distribution of radionuclide in the anterior, inferior, septal, and apical regions. Gated SPECT, approximately 50% with no wall motion abnormality. The patient infused Lexiscan with no EKG changes. SUMMARY: 1. Negative Lexiscan EKG. 2. Normal rest and stress myocardial perfusion scan. No significant stress ischemia. No wall motion abnormality, Gated SPECT approximately 50% on visualized EF. JOB# [id number] RAHUL/JAHAIRA
[2020-03-14] MEDS ORDERED: METOPROLOL SUCCINATE XL 100 MG TAB PO SCH (12:00)
--- NOTE | 2020-03-14 12:59 | Consultation ---
History of Present Illness Consult date: 03/14/20 Requesting physician: JODEE TEMPLETON Consult reason: chest pain History of present illness: Pt is a 74 y.o. AA male with a past medical hx of CAD s/p PCI w/AUGUSTIN to prox PDA (on 02/08/2020), s/p CABG x 2 (05/2019), ICMP, PAF (on Xarelto), CKD, HTN, and ETOH abuse. Pt is followed by [facility]. He has been seen by our practice during previous admissions. Pt presented with c/o of sharp substernal, non- radiating CP that began this afternoon while he was doing yard work. He states the pain is intermittent. Pt reports drinking whiskey following the onset of CP, which provided some relief. Pt denies palpitations, diaphoresis, dizziness/lightheadedness, syncope, headache, SOB, cough, fever/chills, and N/V. No additional associated sx. Trop negative x 2. ECG on admission showed no acute ischemic changes. CXR revealed no acute findings. Echo done 08/2019 - EF 35-40%; mild-mod LVH; abnormal LV diastolic fxn; mild MR. Past History Past Medical History: atrial fib (PAF), CAD, GERD, hypertension, other (CMP, CKD, PUD, recurrent GIB) Past Surgical History: CABG (x 2 (05/2019)), Other Social history: alcohol abuse Family history: diabetes, hypertension Medications and Allergies Allergies Allergy/AdvReac Type Severity Reaction Status Date / Time codeine Allergy Rash Verified 11/05/19 17:30 tramadol Allergy Rash Verified 11/05/19 17:30 Home Medications Medication Instructions Recorded Confirmed Last Taken Type amLODIPine 10 mg PO DAILY #30 09/27/19 03/14/20 02/03/20 10:00 Rx HYDROcodone/APAP 5-325 [[place] 1 each PO Q6HR PRN #10 tablet 11/05/19 03/14/20 Unknown Rx 5-325 mg TAB] Ferrous Sulfate [Iron 325 MG] 1 tab PO DAILY 02/04/20 03/14/20 02/03/20 10:00 History Gabapentin 300 mg PO HS 02/04/20 03/14/20 02/03/20 21:00 History Aspirin [Aspirin BABY CHEW TAB] 81 mg PO QDAY #30 tab.chew 02/09/20 03/14/20 Unknown Rx AtorvaSTATin [Lipitor] 40 mg PO QHS #30 tablet 02/09/20 03/14/20 Unknown Rx Clopidogrel [Plavix] 75 mg PO QDAY #30 tablet 02/09/20 03/14/20 Unknown Rx Folic Acid [Folvite] 1 mg PO QDAY #30 tablet 02/09/20 03/14/20 Unknown Rx Acetaminophen [Acetaminophen TAB] 650 mg PO Q4H PRN tablet 03/14/20 Unknown Rx ISOSORBIDE MONOnitrate [Imdur ER] 30 mg PO QDAY #30 tablet 03/14/20 Unknown Rx Losartan [Cozaar] 100 mg PO QDAY #30 tablet 03/14/20 Unknown Rx Metoprolol Xl [Metoprolol 100 mg PO QDAY #30 03/14/20 Unknown Rx SUCCINATE ER TAB] Pantoprazole [Protonix TAB] 40 mg PO BID #60 tablet 03/14/20 Unknown Rx Rivaroxaban [Xarelto] 20 mg PO QDDIAB #30 tablet 03/14/20 Unknown Rx methOCARBAMOL [Robaxin TAB] 750 mg PO BID #60 03/14/20 Unknown Rx Active Meds: Active Medications Acetaminophen (Tylenol) 650 mg PO Q4H PRN PRN Reason: Pain MILD(1-3)/Fever >100.5/VÁSQUEZ Acetaminophen/Hydrocodone Bitart ([place] 5/325) 1 each PO Q6H PRN PRN Reason: Pain, Moderate (4-6) Amlodipine Besylate (Amlodipine) 10 mg PO DAILY [facility] Last Admin: 03/14/20 11:51 Dose: 10 mg Documented by: Aspirin (Baby Aspirin) 81 mg PO QDAY [facility] Last Admin: 03/14/20 11:42 Dose: 81 mg Documented by: Atorvastatin Calcium (Lipitor) 40 mg PO QHS [facility] Clopidogrel Bisulfate (Plavix) 75 mg PO QDAY [facility] Last Admin: 03/14/20 11:42 Dose: 75 mg Documented by: Ferrous Sulfate (Feosol) 325 mg PO DAILY [facility] Last Admin: 03/14/20 11:40 Dose: 325 mg Documented by: Folic Acid (Folvite) 1 mg PO QDAY [facility] Last Admin: 03/14/20 11:41 Dose: 1 mg Documented by: Gabapentin (Gabapentin) 300 mg PO [facility] Hydromorphone HCl (Dilaudid) 0.5 mg IV Q3H PRN PRN Reason: Pain , Severe (7-10) Isosorbide Mononitrate (Imdur) 30 mg PO QDAY [facility] Last Admin: 03/14/20 11:46 Dose: 30 mg Documented by: Losartan Potassium (Cozaar) 100 mg PO QDAY@0800 [facility] Last Admin: 03/14/20 11:41 Dose: 100 mg Documented by: Methocarbamol (Robaxin) 750 mg PO BID [facility] Metoprolol Succinate (Metoprolol Xl) 100 mg PO QDAY@1200 [facility] Ondansetron HCl (Zofran) 4 mg IV Q8H PRN PRN Reason: Nausea And Vomiting Oxycodone/Acetaminophen (Percocet 5/325) 1 tab PO Q6H PRN PRN Reason: Pain, Moderate (4-6) Pantoprazole Sodium (Protonix) 40 mg PO BID [facility] Last Admin: 03/14/20 11:41 Dose: 40 mg Documented by: Rivaroxaban (Xarelto) 20 mg PO QDDIAB [facility]; Protocol Last Admin: 03/14/20 11:47 Dose: 20 mg Documented by: Sodium Chloride (Sodium Chloride Flush Syringe 10 Ml) 10 ml IV BID [facility] Last Admin: 03/14/20 11:53 Dose: 10 ml Documented by: Sodium Chloride (Sodium Chloride Flush Syringe 10 Ml) 10 ml IV PRN PRN PRN Reason: LINE FLUSH Review of Systems Constitutional: no weight loss, no weight gain, no fever, no chills, no sweats, no fatigue, no weakness Ears, nose, mouth and throat: no tinnitis, no decreased hearing, no nasal congestion, no sinus pressure, no epistaxis, no dysphagia, no sore throat Cardiovascular: chest pain, no orthopnea, no palpitations, no edema, no syncope, no lightheadedness, no shortness of breath, no claudication Respiratory: no cough, no shortness of breath Gastrointestinal: no abdominal pain, no nausea, no vomiting, no diarrhea, no constipation Genitourinary Male: no dysuria, no flank pain Musculoskeletal: no neck stiffness, no neck pain, no muscle weakness, no muscle cramps Integumentary: no rash, no wounds Neurological: no head injury, no paralysis, no weakness, no parathesias, no numbness, no tingling, no seizures, no syncope, no vertigo, no headaches Endocrine: no cold intolerance, no heat intolerance, no polydipsia, no polyuria Hematologic/Lymphatic: no easy bruising, no easy bleeding Allergic/Immunologic: no urticaria, no wheezing Physical Examination Last Vital Signs Temp 97.6 F 03/14/20 11:32 Pulse 71 03/14/20 11:51 Resp 18 03/14/20 11:32 BP 183/99 03/14/20 11:51 Pulse Ox 99 03/14/20 11:32 General appearance: no acute distress HEENT: Positive: EOMI, Normocephaly, Mucus Membranes Moist Neck: Positive: neck supple, trachea midline. Negative: JVD/HJR Cardiac: Positive: Reg Rate and Rhythm, S1/S2 Lungs: Positive: clear to auscultation (bilaterally), No Wheeze, Rales, Rhonchi Neuro: Positive: Grossly Intact, Cranial Nerve 2-12 Intact, Motor Function Intac t, Coordination Normal, Sensory Function Intact Abdomen: Positive: Soft, Active Bowel Sounds. Negative: Tender Skin: Negative: Rash, Suspicious Lesions Musculoskeletal: No Pain, Normal Range of Motion Extremities: Present: upper extr. pulses, lower extr. pulses. Absent: edema Results 03/14/20 01:01 03/14/20 06:22 Cardiac Enzymes 03/14/20 Range/Units 01:01 AST 61 H (5-40) units/L CBC 03/14/20 Range/Units 01:01 WBC 5.8 (4.5-11.0) K/mm3 RBC 3.47 L (3.65-5.03) M/mm3 Hgb 11.0 L (11.8-15.2) gm/dl Hct 33.0 L (35.5-45.6) % Plt Count 178 (140-440) K/mm3 Comprehensive Metabolic Panel 03/14/20 03/14/20 Range/Units 01:01 06:22 Sodium 131 L 131 L (137-145) mmol/L Potassium 3.8 3.4 L (3.6-5.0) mmol/L Chloride 95.4 L 96.0 L (98-107) mmol/L Carbon Dioxide 23 21 L (22-30) mmol/L BUN 19 18 (9-20) mg/dL Creatinine 1.4 1.4 (0.8-1.5) mg/dL Glucose 103 H 132 H (75-100) mg/dL Calcium 8.7 8.9 (8.4-10.2) mg/dL AST 61 H (5-40) units/L ALT 38 (7-56) units/L Alkaline Phosphatase 57 (35-129) units/L Total Protein 7.0 (6.3-8.2) g/dL Albumin 4.1 (3.9-5) g/dL - Imaging and Cardiology Echo: report reviewed (08/2019 - EF 35-40%; mild-mod LVH; abnormal LV diastolic fxn; mild MR) Cardiac cath: report reviewed (02/08/20 - PCI w/AUGUSTIN to prox PDA; patent LAD graft; patent RCA graft) EKG: report reviewed, image reviewed - EKG Interpretation EKG: no acute changes EKG shows: sinus rhythm EKG interpretations - Telemetry EKG Rhythm: Sinus Rhythm - EKG Sinus rhythms and dysrhythmias: sinus rhythm Chamber hypertrophy or enlargement: left ventricular hypertro Assessment and Plan Lexiscan MPI stress test completed today - negative for ischemia. Continue ASA, Plavix, Xarelto, and statin. Add PO Imdur 30mg qDay to current cardiac regimen. Continue BB, CCB, and ARB. Continue PPI. Currently stable cardiac status. Pt may be discharged from a Cardiology [facility]. F/u in our [place] office with Dr. Campbell on 03/19/2020 @ 9:45am ([phone]). Pt seen in conjunction with Dr. Campbell, who agrees with the assessment and plan of care. - Patient Problems (1) Chest pain Current Visit: Yes Status: Acute Qualifiers: Chest pain type: unspecified Qualified Code(s): R07.9 - Chest pain, unspecified (2) CAD (coronary artery disease) Current Visit: Yes Status: Chronic Qualifiers: [place] vs. transplanted heart: [place] heart (3) Stented coronary artery Current Visit: Yes Status: Chronic (4) History of coronary artery bypass graft Current Visit: Yes Status: Chronic (5) Ischemic cardiomyopathy Current Visit: Yes Status: Chronic (6) Paroxysmal atrial fibrillation Current Visit: Yes Status: Chronic (7) Hypokalemia Current Visit: Yes Status: Acute (8) Hyponatremia Current Visit: Yes Status: Acute (9) Hypertension Current Visit: Yes Status: Chronic Qualifiers: Hypertension type: essential hypertension Qualified Code(s): I10 - Essential (primary) hypertension (10) History of GI bleed Current Visit: No Status: Chronic (11) Peptic ulcer Current Visit: No Status: Chronic (12) GERD (gastroesophageal reflux disease) Current Visit: Yes Status: Chronic Qualifiers: Esophagitis presence: without esophagitis Qualified Code(s): K21.9 - Gastro-esophageal reflux disease without esophagitis (13) Alcohol abuse Current Visit: Yes Status: Chronic
--- NOTE | 2020-03-14 13:17 | Discharge Summary ---
Providers - Providers Date of Admission: 03/14/20 02:36 Date of discharge: 03/14/20 Attending physician: KEELY CLEMENT 03/14/20 07:06 Consult to Physician [CONS] Routine Comment: Consulting Provider: SHIVANI MAYNARD Physician Instructions: Reason For Exam: Chest pain Hospitalization Condition: Serious Hospital course: Patient 74-year-old gentleman with history of coronary disease status post 3 stents. Patient presented with chest pain while doing yard work. Patient was just discharged 02/09/2020. Had PCI of PDA evaluated by cardiology on this admission. Conservative cardiac work-up. Will place back on Xarelto Plavix and aspirin. Spoke with Dr. andujar. Aware of patient. Lexiscan was negative today unremarkable. Disposition: TO HOME OR SELFCARE Core Measure Documentation - Palliative Care Palliative Care/ Comfort Measures: Not Applicable - Core Measures Any of the following diagnoses?: none Exam - Constitutional Vitals: Temp Pulse Resp BP Pulse Ox 97.6 F 71 18 183/99 99 03/14/20 11:32 03/14/20 11:51 03/14/20 11:32 03/14/20 11:51 03/14/20 11:32 General appearance: Present: no acute distress, well-nourished - EENT Eyes: Present: PERRL ENT: hearing intact, clear oral mucosa - Neck Neck: Present: supple, normal ROM - Respiratory Respiratory effort: normal Respiratory: bilateral: CTA - Cardiovascular Heart Sounds: Present: S1 & S2. Absent: rub, click - Extremities Extremities: pulses symmetrical, No edema Peripheral Pulses: within normal limits - Abdominal General gastrointestinal: Present: soft, non-tender, non-distended, normal bowel sounds Male genitourinary: Present: normal - Integumentary Integumentary: Present: clear, warm, dry - Musculoskeletal Musculoskeletal: gait normal, strength equal bilaterally - Psychiatric Psychiatric: appropriate mood/affect, intact judgment & insight - Neurologic Neurologic: CNII-XII intact, moves all extremities Plan Activity: no restrictions, advance as tolerated Weight Bearing Status: Full Weight Bearing Diet: low cholesterol, low salt Follow up with: PATRICA BLANK MD [Referring] - 3-5 Days Prescriptions: Losartan [Cozaar] 100 mg PO QDAY #30 tablet ISOSORBIDE MONOnitrate [Imdur ER] 30 mg PO QDAY #30 tablet Metoprolol Xl [Metoprolol SUCCINATE ER TAB] 100 mg PO QDAY #30 Pantoprazole [Protonix TAB] 40 mg PO BID #60 tablet methOCARBAMOL [Robaxin TAB] 750 mg PO BID #60 Rivaroxaban [Xarelto] 20 mg PO QDDIAB #30 tablet
[2020-03-14] MEDS ORDERED: GABAPENTIN 300 MG CAP PO SCH (22:00)
== END 2020-03-14 16:39 | disposition home or self-care (01) ==
LOC: ED 00:27 → 4A 02:36
PROVIDERS: ADMIT Internal Medicine; ATTEND Internal Medicine
DX: R07.89 Other chest pain (principal); I25.10 Atherosclerotic heart disease of native coronary artery without angina pectoris; I48.0 Paroxysmal atrial fibrillation; E78.2 Mixed hyperlipidemia; I25.5 Ischemic cardiomyopathy; K21.9 Gastro-esophageal reflux disease without esophagitis; E87.6 Hypokalemia; E87.1 Hypo-osmolality and hyponatremia; I12.9 Hypertensive chronic kidney disease with stage 1 through stage 4 chronic kidney disease, or unspecified chronic kidney disease; N18.9 Chronic kidney disease, unspecified; I25.2 Old myocardial infarction; K27.7 Chronic peptic ulcer, site unspecified, without hemorrhage or perforation; F10.10 Alcohol abuse, uncomplicated; Z87.19 Personal history of other diseases of the digestive system; Z95.5 Presence of coronary angioplasty implant and graft; Z95.1 Presence of aortocoronary bypass graft; Z79.02 Long term (current) use of antithrombotics/antiplatelets; Z79.01 Long term (current) use of anticoagulants; Z79.82 Long term (current) use of aspirin; Z79.899 Other long term (current) drug therapy; Z88.5 Allergy status to narcotic agent; Z88.6 Allergy status to analgesic agent
CPT/HCPCS: 36415; 71045; 78452; 80048; 80053; 80307; 81001; 84484; 85007; 85025; 93005; 93017; 96374; 99291; A9502; G0378; J2270; J2785

== ENCOUNTER 2020-04-09 20:36 | Emergency (ER) | payer MEDICARE ==
[2020-04-09] MEDS ORDERED: ASPIRIN 325 MG TAB PO ONE (20:47)
[2020-04-09 21:22] LABS: Basophils % (Auto) 0.4 % (0.0-1.8); Eosinophils # (Auto) 0.1 K/mm3 (0.0-0.4); Eosinophils % (Auto) 1.2 % (0.0-4.3); Hematocrit 36.1 % (35.5-45.6); Hemoglobin 11.8 gm/dl (11.8-15.2); Lymphocytes # (Auto) 2.3 K/mm3 (1.2-5.4); Lymphocytes % (Auto) 38.8 % (13.4-35.0); Mean Corpuscular HGB Conc 33 % (32-34); Mean Corpuscular Volume 95 fl (84-94); Monocytes # (Auto) 0.5 K/mm3 (0.0-0.8); Monocytes % (Auto) 7.8 % (0.0-7.3); Platelet Count 193 K/mm3 (140-440); Red Blood Count 3.79 M/mm3 (3.65-5.03); Red Cell Distribution Width 14.1 % (13.2-15.2)
--- NOTE | 2020-04-09 21:53 | XRay Report ---
CHEST 2 VIEWS INDICATION / CLINICAL INFORMATION: Chest Pain. COMPARISON: 03/14/2020 chest radiograph FINDINGS: SUPPORT DEVICES: None. HEART / MEDIASTINUM: Stable cardiomediastinal silhouette with changes from previous CABG. Normal hear t size. LUNGS / PLEURA: No significant pulmonary or pleural abnormality. No pneumothorax. ADDITIONAL FINDINGS: No significant additional findings. IMPRESSION: No acute finding. Signer Name: Geronimo Posey MD Signed: 04/09/2020 9:49 PM Workstation Name: [id number]
--- NOTE | 2020-04-09 22:34 | Emergency Department Report ---
ED Chest Pain HPI - General Chief Complaint: Chest Pain Stated Complaint: PASSED OUT Time Seen by Provider: 04/09/20 22:10 Source: patient Mode of arrival: Wheelchair Limitations: No Limitations - History of Present Illness Initial Comments: This is a 74-year-old -[place] male with a past medical history of coronary artery disease status post PCI with proximal PDA in January, status post CABG in April 2019, ischemic cardiomyopathy, paroxysmal atrial fibrillation, hypertension and EtOH abuse. The patient presents with a complaint of some left-sided chest or chest wall pain and a syncopal episode just prior to presentation. Patient says that he drinks 6 beers after finishing work today. He does have a history of EtOH abuse but denies drinking every day. Patient also says that he had a fall yesterday in which he fell onto the left side of his chest on top of a stool. Patient was admitted here for chest pain in February of this year and had a negative stress test at that time. Follows with [facility] for cardiology. - Related Data Home Medications Medication Instructions Recorded Confirmed Last Taken Ferrous Sulfate [Iron 325 MG] 1 tab PO DAILY 02/04/20 03/14/20 02/03/20 10:00 Gabapentin 300 mg PO HS 02/04/20 03/14/20 02/03/20 21:00 Previous Rx's Medication Instructions Recorded Last Taken Type amLODIPine 10 mg PO DAILY #30 09/27/19 02/03/20 10:00 Rx HYDROcodone/APAP 5-325 [[place] 1 each PO Q6HR PRN #10 tablet 11/05/19 Unknown Rx 5-325 mg TAB] Aspirin [Aspirin BABY CHEW TAB] 81 mg PO QDAY #30 tab.chew 02/09/20 Unknown Rx AtorvaSTATin [Lipitor] 40 mg PO QHS #30 tablet 02/09/20 Unknown Rx Clopidogrel [Plavix] 75 mg PO QDAY #30 tablet 02/09/20 Unknown Rx Folic Acid [Folvite] 1 mg PO QDAY #30 tablet 02/09/20 Unknown Rx Acetaminophen [Acetaminophen TAB] 650 mg PO Q4H PRN tablet 03/14/20 Unknown Rx ISOSORBIDE MONOnitrate [Imdur ER] 30 mg PO QDAY #30 tablet 03/14/20 Unknown Rx Losartan [Cozaar] 100 mg PO QDAY #30 tablet 03/14/20 Unknown Rx Metoprolol Xl [Metoprolol 100 mg PO QDAY #30 03/14/20 Unknown Rx SUCCINATE ER TAB] Pantoprazole [Protonix TAB] 40 mg PO BID #60 tablet 03/14/20 Unknown Rx Rivaroxaban [Xarelto] 20 mg PO QDDIAB #30 tablet 03/14/20 Unknown Rx methOCARBAMOL [Robaxin TAB] 750 mg PO BID #60 03/14/20 Unknown Rx Allergies Allergy/AdvReac Type Severity Reaction Status Date / Time codeine Allergy Rash Verified 04/09/20 20:48 tramadol Allergy Rash Verified 04/09/20 20:48 Heart Score - HEART Score History: Slightly suspicious EKG: Non-specific Age: > 65 Risk factors: > 3 risk factors or hx of atherosclerotic disease Troponin: < normal limit HEART Score: 5 - Critical Actions Critical Actions: 4-6 pts:12-16.6% risk of adverse cardiac event. Should be admitted ED Review of Systems ROS: Stated complaint: PASSED OUT Other details as noted in HPI Comment: All other systems reviewed and negative Constitutional: denies: chills, fever Eyes: denies: eye pain, vision change ENT: denies: ear pain, throat pain Respiratory: denies: cough, shortness of breath Cardiovascular: chest pain, syncope Gastrointestinal: denies: abdominal pain, vomiting Genitourinary: denies: dysuria, discharge Musculoskeletal: denies: back pain, arthralgia Skin: denies: rash, lesions Neurological: denies: headache, weakness ED Past Medical Hx - Past Medical History Hx Hypertension: Yes Hx Heart Attack/AMI: Yes Hx Liver Disease: No Hx Renal Disease: Yes (CKD) Additional medical history: gastric ulcer. ETOH abuse. CAD - Surgical History Hx Coronary Stent: Yes Hx Open Heart Surgery: Yes Additional Surgical History: Neck surgery, CABG - Social History Smoking Status: Never Smoker Substance Use Type: Alcohol - Medications Home Medications: Home Medications Medication Instructions Recorded Confirmed Last Taken Type amLODIPine 10 mg PO DAILY #30 09/27/19 03/14/20 02/03/20 10:00 Rx HYDROcodone/APAP 5-325 [[place] 1 each PO Q6HR PRN #10 tablet 11/05/19 03/14/20 Unknown Rx 5-325 mg TAB] Ferrous Sulfate [Iron 325 MG] 1 tab PO DAILY 02/04/20 03/14/20 02/03/20 10:00 History Gabapentin 300 mg PO HS 02/04/20 03/14/20 02/03/20 21:00 History Aspirin [Aspirin BABY CHEW TAB] 81 mg PO QDAY #30 tab.chew 02/09/20 03/14/20 Unknown Rx AtorvaSTATin [Lipitor] 40 mg PO QHS #30 tablet 02/09/20 03/14/20 Unknown Rx Clopidogrel [Plavix] 75 mg PO QDAY #30 tablet 02/09/20 03/14/20 Unknown Rx Folic Acid [Folvite] 1 mg PO QDAY #30 tablet 02/09/20 03/14/20 Unknown Rx Acetaminophen [Acetaminophen TAB] 650 mg PO Q4H PRN tablet 03/14/20 Unknown Rx ISOSORBIDE MONOnitrate [Imdur ER] 30 mg PO QDAY #30 tablet 03/14/20 Unknown Rx Losartan [Cozaar] 100 mg PO QDAY #30 tablet 03/14/20 Unknown Rx Metoprolol Xl [Metoprolol 100 mg PO QDAY #30 03/14/20 Unknown Rx SUCCINATE ER TAB] Pantoprazole [Protonix TAB] 40 mg PO BID #60 tablet 03/14/20 Unknown Rx Rivaroxaban [Xarelto] 20 mg PO QDDIAB #30 tablet 03/14/20 Unknown Rx methOCARBAMOL [Robaxin TAB] 750 mg PO BID #60 03/14/20 Unknown Rx ED Physical Exam - General Limitations: No Limitations - Other Other exam information: GENERAL: The patient is well-developed well-nourished. HENT: Normocephalic. Atraumatic. Patient has moist mucous membranes. EYES: Extraocular motions are intact. NECK: Supple. Trachea is midline. CHEST/LUNGS: Clear to auscultation. There is no respiratory distress noted. There is some reproducible tenderness to palpation to the left chest wall but no crepitus or deformity. HEART/CARDIOVASCULAR: Regular. There is no tachycardia. There is no murmur. ABDOMEN: Abdomen is soft, nontender. Patient has normal bowel sounds. SKIN: Skin is warm and dry. NEURO: The patient is awake, alert, and oriented. The patient is cooperative. The patient has no focal neurologic deficits. Normal speech. MUSCULOSKELETAL: There is no tenderness or deformity. There is no limitation range of motion. There is no evidence of acute injury. ED Course Vital Signs 04/09/20 04/09/20 04/09/20 20:40 22:52 23:00 Temperature 97.9 F Pulse Rate 73 69 Respiratory 18 19 18 Rate Blood Pressure 180/104 Blood Pressure [Left] O2 Sat by Pulse 98 99 98 Oximetry 04/09/20 04/09/20 04/09/20 23:02 23:28 23:30 Temperature Pulse Rate 67 67 66 Respiratory 18 17 17 Rate Blood Pressure Blood Pressure 151/83 [Left] O2 Sat by Pulse 98 95 100 Oximetry 04/09/20 04/10/20 04/10/20 23:46 00:00 00:16 Temperature Pulse Rate 65 65 63 Respiratory 18 16 16 Rate Blood Pressure 158/82 162/85 162/85 Blood Pressure [Left] O2 Sat by Pulse 94 99 98 Oximetry 04/10/20 04/10/20 04/10/20 00:30 00:52 01:00 Temperature Pulse Rate 64 66 64 Respiratory 15 19 16 Rate Blood Pressure 154/87 154/87 154/87 Blood Pressure [Left] O2 Sat by Pulse 99 99 98 Oximetry 04/10/20 04/10/20 04/10/20 01:16 01:30 01:46 Temperature Pulse Rate 62 61 60 Respiratory 16 16 16 Rate Blood Pressure 137/73 135/74 135/74 Blood Pressure [Left] O2 Sat by Pulse 98 98 98 Oximetry 04/10/20 02:00 Temperature Pulse Rate 65 Respiratory 22 Rate Blood Pressure 135/74 Blood Pressure [Left] O2 Sat by Pulse 97 Oximetry SAURABH score - Saurabh Score Age > 65: (1) Yes Aspirin use within the Past 7 Days: (1) Yes 3 or more CAD Risk Factors: (1) Yes 2 or more Angina events in past 24 hrs: (0) No Known CAD with more than 50% Stenosis: (1) Yes Elevated Cardiac Markers: (0) No ST Deviation Greater than 0.5mm: (0) No SAURABH Score: 4 ED Medical Decision Making - Lab Data Result diagrams: 04/09/20 21:07 04/09/20 21:07 - EKG Data -: EKG Interpreted by Ms EKG shows normal: sinus rhythm, axis (Right axis deviation), intervals, QRS complexes (LVH), ST-T waves Rate: normal - EKG Data When compared to previous EKG there are: no significant change Interpretation: unchanged when compared t (03/14/20) - Radiology Data Radiology results: image reviewed interpreted by me: Chest x-ray does not show any acute process. There are no pleural effusions, obvious pneumonia and there is no pneumothorax. - Medical Decision Making This patient presents to the emergency department with a complaint of some chest or chest wall discomfort, and a syncopal episode, that occurred just prior to presentation. Since being in the emergency department the patient is awake, alert, oriented and in no acute distress. He does not have any focal, motor or sensory deficits and his cranial nerves are intact. An EKG was done that does not show any morphology consistent with ST elevation [place] and is unchanged from previous. Chest x-ray does not show any pneumonia, pneumothorax, pleural effusions, focal consolidation, or any other acute process. The patient has had negative troponins x3. His blood alcohol level was initially 0.16 at about 11 PM. At this time the patient would be well under the legal limit. The patient also has some mild hyponatremia consistent with his chronic alcohol consumption. Patient was given a multivitamin and thiamine. He was reevaluated multiple times over multiple hours and currently says he is pain-free. There has been no further syncopal episodes. The patient has a moderate heart and SAURABH score. However, the patient just had a cardiac catheterization 2 months ago in which he had a stent placed, and the patient was seen here last month and had a negative cardiac stress test. Some of his chest pain appears to be chest wall pain and is reproducible to palpation of the chest wall. And the patient is pain-free prior to discharge. The patient does not express any risk factors for PE or thromboembolism. His vital signs been stable throughout his ED course including being afebrile, no tachycardia or hypoxia. For all these reasons the patient does appear safe for discharge home at this time. He already has a scheduled appointment with his door operator and has been instructed to follow-up with primary care. The patient will return to the emergency department with any worsening of his symptoms or any acute distress. He understands and agrees to this plan. Critical Care Time: No Critical care attestation.: If time is entered above; I have spent that time in minutes in the direct care of this critically ill patient, excluding procedure time. ED Disposition Clinical Impression: Chest pain, atypical, Alcohol abuse, Hyponatremia Syncope Qualifiers: Syncope type: unspecified Qualified Code(s): R55 - Syncope and collapse Disposition: DC-01 TO HOME OR SELFCARE Is pt being admited?: No Condition: Stable Instructions: Chest Pain (ED), Syncope (ED), Alcohol Intoxication (ED), Abuse of Alcohol (ED) Additional Instructions: Please follow-up with your primary care physician and door operator in the next few days. Please avoid any further alcohol abuse. Return to the emergency department with any worsening of your symptoms or any acute distress. Referrals: PRIMARY CARE, [Primary Care Provider] - 2-3 Days door operator, Your [Other] - 2-3 Days Time of Disposition: 04:24
[2020-04-09 23:30] LABS: INR 1.44 (0.87-1.13)
--- NOTE | 2020-04-09 23:45 | Cat Scan Report ---
CT head without contrast HISTORY: MAIN: Syncope, fell yesterday LT side. TECHNIQUE: Axial imaging performed from the skull apex through the skull base without the use of con trast. All CT scans at this location are performed using CT dose reduction for ALARA by means of aut omated exposure control. COMPARISON: CT head from 02/04/2020 FINDINGS: Parenchyma: No acute intracranial hemorrhage or parenchymal abnormality. 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 Ventricles: There is mild diffuse brain atrophy with commensurate ventricular enlargement which is l ikely age appropriate. Soft tissues: Soft tissues including the orbits appear normal. Bones: No acute osseous abnormality. Sinuses: Sinuses and mastoid air cells are clear. IMPRESSION: No acute abnormality. Signer Name: Reji Hines MD Signed: 04/09/2020 11:41 PM Workstation Name: [id number]
[2020-04-10] MEDS ORDERED: THIAMINE 100 MG TAB PO ONE (01:15)
[2020-04-10] MEDS ORDERED: MULTIVITAMINS ,THERAPEUTIC TAB PO ONE (01:15)
[2020-04-10 05:39] VITALS: BP 140/92
== END 2020-04-10 05:52 | disposition home or self-care (01) ==
LOC: ED 20:36
DX: R55 Syncope and collapse (principal); E87.1 Hypo-osmolality and hyponatremia; E86.0 Dehydration; I12.9 Hypertensive chronic kidney disease with stage 1 through stage 4 chronic kidney disease, or unspecified chronic kidney disease; N18.9 Chronic kidney disease, unspecified; Z95.818 Presence of other cardiac implants and grafts; Z79.899 Other long term (current) drug therapy
CPT/HCPCS: 36415; 70450; 71046; 80048; 80320; 84484; 85025; 85610; 93005; G0480

== ENCOUNTER 2021-08-14 18:19 | Observation (INO) | payer MEDICARE ==
--- NOTE | 2021-08-14 18:35 | Emergency Department Report ---
ED Chest Pain HPI - General Chief Complaint: Chest Pain Stated Complaint: CP WITH ETOH Time Seen by Provider: 08/14/21 18:32 Source: patient, EMS Mode of arrival: Stretcher Limitations: No Limitations - History of Present Illness Initial Comments: 75-year-old -[place] male presents to the emergency department with a complaint of midsternal to left-sided chest pain that has been going on since . At that time the patient says that he had a fall onto the curb and cracked a filling. Patient also says that he has been to this emergency department multiple times over the past few days. He has been out of his medications but says that they were not prescribed to him. However, in reviewing his chart, the patient does not appear to have been here since the summer 2019. He has a history of coronary artery disease with previous triple bypass, hypertension, and follows with [facility] for cardiology. He denies any tobacco use but admits to alcohol use, including today. Currently he says his chest pain is 7 out of 10 in intensity. It appears to worsen with certain movements and with palpation of the chest. No known alleviating factors. - Related Data Home Medications Medication Instructions Recorded Confirmed Last Taken Ferrous Sulfate [Iron 325 MG] 1 tab PO DAILY 02/04/20 03/14/20 02/03/20 10:00 Gabapentin 300 mg PO HS 02/04/20 03/14/20 02/03/20 21:00 Previous Rx's Medication Instructions Recorded Last Taken Type amLODIPine 10 mg PO DAILY #30 09/27/19 02/03/20 10:00 Rx Aspirin [Aspirin BABY CHEW TAB] 81 mg PO QDAY #30 tab.chew 02/09/20 Unknown Rx AtorvaSTATin [Lipitor] 40 mg PO QHS #30 tablet 02/09/20 Unknown Rx Clopidogrel [Plavix] 75 mg PO QDAY #30 tablet 02/09/20 Unknown Rx Folic Acid [Folvite] 1 mg PO QDAY #30 tablet 02/09/20 Unknown Rx ISOSORBIDE MONOnitrate [Imdur ER] 30 mg PO QDAY #30 tablet 03/14/20 Unknown Rx Losartan [Cozaar] 100 mg PO QDAY #30 tablet 03/14/20 Unknown Rx Metoprolol Xl [Metoprolol 100 mg PO QDAY #30 03/14/20 Unknown Rx SUCCINATE ER TAB] Pantoprazole [Protonix TAB] 40 mg PO BID #60 tablet 03/14/20 Unknown Rx Rivaroxaban [Xarelto] 20 mg PO QDDIAB #30 tablet 03/14/20 Unknown Rx methOCARBAMOL [Robaxin TAB] 750 mg PO BID #30 05/30/20 Unknown Rx Allergies Allergy/AdvReac Type Severity Reaction Status Date / Time codeine Allergy Rash Verified 04/09/20 20:48 tramadol Allergy Rash Verified 04/09/20 20:48 Heart Score - HEART Score History: Slightly suspicious EKG: Normal Age: > 65 Risk factors: > 3 risk factors or hx of atherosclerotic disease Troponin: < normal limit HEART Score: 4 - EKG Read Time Time EKG Completed: 19:24 EKG Read Time: 19:26 - Critical Actions Critical Actions: 4-6 pts:12-16.6% risk of adverse cardiac event. Should be admitted ED Review of Systems ROS: Stated complaint: CP WITH ETOH Other details as noted in HPI Comment: All other systems reviewed and negative Constitutional: denies: chills, fever Eyes: denies: eye pain, vision change ENT: denies: ear pain, throat pain Respiratory: denies: cough, shortness of breath Cardiovascular: chest pain. denies: palpitations, edema Gastrointestinal: denies: abdominal pain, vomiting Genitourinary: denies: dysuria, discharge Musculoskeletal: denies: back pain, arthralgia Skin: denies: rash, lesions Neurological: denies: headache, weakness ED Past Medical Hx - Past Medical History Previous Medical History?: Yes Hx Hypertension: Yes Hx Heart Attack/AMI: Yes Hx Renal Disease: Yes (CKD) Additional medical history: gastric ulcer. ETOH abuse. CAD - Surgical History Past Surgical History?: Yes Hx Coronary Stent: Yes (x3) Hx Open Heart Surgery: Yes Additional Surgical History: Neck surgery, CABG - Social History Smoking Status: Never Smoker - Medications Home Medications: Home Medications Medication Instructions Recorded Confirmed Last Taken Type amLODIPine 10 mg PO DAILY #30 09/27/19 03/14/20 02/03/20 10:00 Rx Ferrous Sulfate [Iron 325 MG] 1 tab PO DAILY 02/04/20 03/14/20 02/03/20 10:00 History Gabapentin 300 mg PO HS 02/04/20 03/14/20 02/03/20 21:00 History Aspirin [Aspirin BABY CHEW TAB] 81 mg PO QDAY #30 tab.chew 02/09/20 03/14/20 Unknown Rx AtorvaSTATin [Lipitor] 40 mg PO QHS #30 tablet 02/09/20 03/14/20 Unknown Rx Clopidogrel [Plavix] 75 mg PO QDAY #30 tablet 02/09/20 03/14/20 Unknown Rx Folic Acid [Folvite] 1 mg PO QDAY #30 tablet 02/09/20 03/14/20 Unknown Rx ISOSORBIDE MONOnitrate [Imdur ER] 30 mg PO QDAY #30 tablet 03/14/20 Unknown Rx Losartan [Cozaar] 100 mg PO QDAY #30 tablet 03/14/20 Unknown Rx Metoprolol Xl [Metoprolol 100 mg PO QDAY #30 03/14/20 Unknown Rx SUCCINATE ER TAB] Pantoprazole [Protonix TAB] 40 mg PO BID #60 tablet 03/14/20 Unknown Rx Rivaroxaban [Xarelto] 20 mg PO QDDIAB #30 tablet 03/14/20 Unknown Rx methOCARBAMOL [Robaxin TAB] 750 mg PO BID #30 05/30/20 Unknown Rx ED Physical Exam - General Limitations: No Limitations - Other Other exam information: GENERAL: The patient is well-developed well-nourished. HENT: Normocephalic. Atraumatic. Patient has moist mucous membranes. EYES: Extraocular motions are intact. NECK: Supple. Trachea is midline. CHEST/LUNGS: Clear to auscultation. There is no respiratory distress noted. HEART/CARDIOVASCULAR: Regular. There is no tachycardia. There is no murmur. There is some reproducible left-sided chest wall tenderness to palpation. No crepitus or deformity. ABDOMEN: Abdomen is soft, nontender. Patient has normal bowel sounds. There is no abdominal distention. SKIN: Skin is warm and dry. NEURO: The patient is awake, alert, and oriented. The patient is cooperative. The patient has no focal neurologic deficits. Normal speech. MUSCULOSKELETAL: There is no tenderness or deformity. There is no limitation range of motion. ED Course Vital Signs 08/14/21 21:39 Temperature 98.3 F Pulse Rate 82 Respiratory 18 Rate Blood Pressure 167/91 [Left] O2 Sat by Pulse 96 Oximetry SAURABH score - Saurabh Score Age > 65: (1) Yes Aspirin use within the Past 7 Days: (0) No 3 or more CAD Risk Factors: (1) Yes 2 or more Angina events in past 24 hrs: (1) Yes Known CAD with more than 50% Stenosis: (1) Yes Elevated Cardiac Markers: (0) No ST Deviation Greater than 0.5mm: (0) No SAURABH Score: 4 ED Medical Decision Making - Lab Data Result diagrams: 08/14/21 18:36 08/14/21 18:36 Lab Results 08/14/21 08/14/21 08/14/21 Range/Units 18:36 18:36 18:36 WBC 5.5 (4.5-11.0) K/mm3 RBC 3.62 L (3.65-5.03) M/mm3 Hgb 11.9 (11.8-15.2) gm/dl Hct 34.6 L (35.5-45.6) % MCV 96 H (84-94) fl MCH 33 H (28-32) pg MCHC 34 (32-34) % RDW 13.9 (13.2-15.2) % Plt Count 191 (140-440) K/mm3 Lymph % (Auto) 23.8 (13.4-35.0) % [place] % (Auto) 9.3 H (0.0-7.3) % Eos % (Auto) 0.3 (0.0-4.3) % Baso % (Auto) 0.4 (0.0-1.8) % Lymph # (Auto) 1.3 (1.2-5.4) K/mm3 [place] # (Auto) 0.5 (0.0-0.8) K/mm3 Eos # (Auto) 0.0 (0.0-0.4) K/mm3 Baso # (Auto) 0.0 (0.0-0.1) K/mm3 Seg Neutrophils % 66.2 (40.0-70.0) % Seg Neutrophils # 3.6 (1.8-7.7) K/mm3 Sodium 132 L (137-145) mmol/L Potassium 3.5 L (3.6-5.0) mmol/L Chloride 97.1 L (98-107) mmol/L Carbon Dioxide 22 (22-30) mmol/L Anion Gap 16 mmol/L BUN 24 H (9-20) mg/dL Creatinine 1.2 (0.8-1.3) mg/dL Estimated GFR > 60 ml/min BUN/Creatinine Ratio 20 % Glucose 98 (75-100) mg/dL Calcium 9.2 (8.4-10.2) mg/dL Total Bilirubin 0.20 (0.1-1.2) mg/dL AST 30 (5-40) units/L ALT 20 (7-56) units/L Alkaline Phosphatase 52 (35-129) units/L Troponin T 0.017 (0.00-0.029) ng/mL Total Protein 6.8 (6.3-8.2) g/dL Albumin 3.9 (3.9-5) g/dL Albumin/Globulin Ratio 1.3 % Plasma/Serum Alcohol 0.15 H (0-0.07) % / Range/Units 21:15 WBC (4.5-11.0) K/mm3 RBC (3.65-5.03) M/mm3 Hgb (11.8-15.2) gm/dl Hct (35.5-45.6) % MCV (84-94) fl MCH (28-32) pg MCHC (32-34) % RDW (13.2-15.2) % Plt Count (140-440) K/mm3 Lymph % (Auto) (13.4-35.0) % [place] % (Auto) (0.0-7.3) % Eos % (Auto) (0.0-4.3) % Baso % (Auto) (0.0-1.8) % Lymph # (Auto) (1.2-5.4) K/mm3 [place] # (Auto) (0.0-0.8) K/mm3 Eos # (Auto) (0.0-0.4) K/mm3 Baso # (Auto) (0.0-0.1) K/mm3 Seg Neutrophils % (40.0-70.0) % Seg Neutrophils # (1.8-7.7) K/mm3 Sodium (137-145) mmol/L Potassium (3.6-5.0) mmol/L Chloride (98-107) mmol/L Carbon Dioxide (22-30) mmol/L Anion Gap mmol/L BUN (9-20) mg/dL Creatinine (0.8-1.3) mg/dL Estimated GFR ml/min BUN/Creatinine Ratio % Glucose (75-100) mg/dL Calcium (8.4-10.2) mg/dL Total Bilirubin (0.1-1.2) mg/dL AST (5-40) units/L ALT (7-56) units/L Alkaline Phosphatase (35-129) units/L Troponin T 0.017 (0.00-0.029) ng/mL Total Protein (6.3-8.2) g/dL Albumin (3.9-5) g/dL Albumin/Globulin Ratio % Plasma/Serum Alcohol (0-0.07) % - EKG Data -: EKG Interpreted by Me EKG shows normal: sinus rhythm, axis, intervals, QRS complexes (LVH), ST-T waves Rate: normal - EKG Data When compared to previous EKG there are: no significant change Interpretation: unchanged when compared t (05/29/20) - Radiology Data Radiology results: image reviewed interpreted by me: Chest x-ray does not show any acute process. There are no pleural effusions, obvious pneumonia and there is no pneumothorax. No widened mediastinum. - Medical Decision Making This patient presents to the emergency department with midsternal to left-sided chest pain that has been going on since . EKG does not have any morphology consistent with ST elevation myocardial infarction. Chest x-ray does not show any pneumonia, pleural effusions, widened mediastinum, pneumothorax, or any other acute process. The patient's labs have been mostly unremarkable thus far including negative troponins x2, but the patient does have alcohol intoxication with a blood alcohol level of 0.15. He has been given some IV fluid resuscitation through banana bag, and a dose of Pepcid. The patient has a moderate heart and SAURABH score. It appears to have been at least 1.5 years since the patient had a stress test. He will be admitted to the hospital for further evaluation and treatment and was accepted for admission by the hospitalist, Dr. Pressley. Critical Care Time: No Critical care attestation.: If time is entered above; I have spent that time in minutes in the direct care of this critically ill patient, excluding procedure time. ED Disposition Clinical Impression: Alcohol use, History of coronary artery disease Chest pain Qualifiers: Chest pain type: unspecified Qualified Code(s): R07.9 - Chest pain, unspecified Hypertension Qualifiers: Hypertension type: primary hypertension Qualified Code(s): I10 - Essential (primary) hypertension Disposition: 09 ADMITTED INPATIENT Is pt being admited?: Yes Condition: Fair Time of Disposition: 21:39
[2021-08-14 18:48] LABS: Basophils % (Auto) 0.4 % (0.0-1.8); Eosinophils % (Auto) 0.3 % (0.0-4.3); Hematocrit 34.6 % (35.5-45.6); Hemoglobin 11.9 gm/dl (11.8-15.2); Lymphocytes # (Auto) 1.3 K/mm3 (1.2-5.4); Lymphocytes % (Auto) 23.8 % (13.4-35.0); Mean Corpuscular HGB Conc 34 % (32-34); Mean Corpuscular Volume 96 fl (84-94); Monocytes # (Auto) 0.5 K/mm3 (0.0-0.8); Monocytes % (Auto) 9.3 % (0.0-7.3); Platelet Count 191 K/mm3 (140-440); Red Blood Count 3.62 M/mm3 (3.65-5.03); Red Cell Distribution Width 13.9 % (13.2-15.2)
[2021-08-14 19:04] LABS: Alanine Aminotransferase 20 units/L (7-56); Albumin 3.9 g/dL (3.9-5); BUN/Creatinine Ratio 20; Blood Urea Nitrogen 24 mg/dL (9-20); Calcium 9.2 mg/dL (8.4-10.2); Hemolysis Index 6
--- NOTE | 2021-08-14 19:12 | XRay Report ---
. CHEST 1 VIEW INDICATION: CP. COMPARISON: 05/29/2020 FINDINGS: SUPPORT DEVICES: None. HEART: Old CABG change with normal heart size. LUNGS/PLEURA: No acute air space or interstitial disease. ADDITIONAL FINDINGS: None. IMPRESSION: 1. No acute findings. Signer Name: Reji Hines MD Signed: 08/14/2021 7:07 PM Workstation Name: [id number]
[2021-08-14] MEDS ORDERED: FAMOTIDINE 20 MG/2 ML INJ IV ONE (19:28)
[2021-08-14] MEDS ORDERED: THIAMINE 100 MG, FOLIC ACID 1 MG, MULTIPLE VITAMIN INJ, ADULT 10 ML in SODIUM CHLORIDE ... IV ONE (19:28)
[2021-08-14] MEDS ORDERED: MORPHINE 2 MG/1 ML INJ IV PRN ×2 (22:16)
[2021-08-14] MEDS ORDERED: ONDANSETRON 4 MG/2 ML INJ IV PRN (22:16)
[2021-08-14] MEDS ORDERED: NITROGLYCERIN 0.4 MG TAB SUBL SL PRN (22:16)
[2021-08-14] MEDS ORDERED: MAGNESIUM HYDROXIDE (MOM) ORAL LIQD UDC PO PRN (22:16)
[2021-08-14] MEDS ORDERED: MORPHINE 4 MG/1 ML INJ IV PRN (22:16)
--- NOTE | 2021-08-14 22:33 | History and Physical Report ---
History of Present Illness Date of examination: 08/14/21 Date of admission: 08/14/21 21:39 Chief complaint: Chest Pain History of present illness: 75-year-old -[place] male presenting to the emergency room today complaining of chest pain. Pain is said to be midsternal and also to the left side of his chest and has been ongoing on and off for about 2 weeks. He has a known history of coronary artery disease with triple bypass in the past. He follows up with senior counsel at [facility]. Chest pain is said to be worse on exertion and feels better upon resting. Pain was about 7/10 in severity. There has been no radiation, no nausea vomiting and no abdominal pain. He denies any headache or dizziness and no diaphoresis. Patient states he has been out of his medications for some time because they were not prescribed for him. Work-up in the emergency room today, troponin has been negative. EKG has been within normal limits. Chest x-ray shows no acute findings. Patient being admitted for chest pain evaluation. Past History Past Medical History: acute CO, CAD, heart failure, hypertension, renal failure, other (Gastric Ulcer, ) Past Surgical History: CABG, PTCA, Other (Neck Surgery) Social history: alcohol abuse Family history: no significant family history Medications and Allergies Allergies Allergy/AdvReac Type Severity Reaction Status Date / Time codeine Allergy Rash Verified 04/09/20 20:48 tramadol Allergy Rash Verified 04/09/20 20:48 Home Medications Medication Instructions Recorded Confirmed Last Taken Type amLODIPine 10 mg PO DAILY #30 09/27/19 03/14/20 2 Weeks Ago Rx ~08/01/21 Ferrous Sulfate [Iron 325 MG] 1 tab PO DAILY 02/04/20 03/14/20 2 Weeks Ago History ~08/01/21 Gabapentin 300 mg PO HS 02/04/20 03/14/20 2 Weeks Ago History ~08/01/21 Aspirin [Aspirin BABY CHEW TAB] 81 mg PO QDAY #30 tab.chew 02/09/20 03/14/20 2 Weeks Ago Rx ~08/01/21 AtorvaSTATin [Lipitor] 40 mg PO QHS #30 tablet 02/09/20 03/14/20 2 Weeks Ago Rx ~08/01/21 Clopidogrel [Plavix] 75 mg PO QDAY #30 tablet 02/09/20 03/14/20 Unknown Rx Folic Acid [Folvite] 1 mg PO QDAY #30 tablet 02/09/20 03/14/20 2 Weeks Ago Rx ~08/01/21 ISOSORBIDE MONOnitrate [Imdur ER] 30 mg PO QDAY #30 tablet 03/14/20 2 Weeks Ago Rx ~08/01/21 Losartan [Cozaar] 100 mg PO QDAY #30 tablet 03/14/20 2 Weeks Ago Rx ~08/01/21 Metoprolol Xl [Metoprolol 100 mg PO QDAY #30 03/14/20 2 Weeks Ago Rx SUCCINATE ER TAB] ~08/01/21 Pantoprazole [Protonix TAB] 40 mg PO BID #60 tablet 03/14/20 2 Weeks Ago Rx ~08/01/21 Rivaroxaban [Xarelto] 20 mg PO QDDIAB #30 tablet 03/14/20 1 Month Ago Rx ~07/15/21 methOCARBAMOL [Robaxin TAB] 750 mg PO BID #30 05/30/20 2 Weeks Ago Rx ~08/01/21 Active Meds: Active Medications Thiamine HCl 100 mg/ Folic Acid 1 mg/ Multivitamins/Minerals 10 ml/ Sodium Chloride 1,011.2 mls @ 250 mls/hr IV ONCE ONE Stop: 08/14/21 23:30 Review of Systems Constitutional: no fever, no chills Ears, nose, mouth and throat: no nasal congestion, no sore throat Cardiovascular: chest pain, no palpitations Respiratory: no cough, no shortness of breath Gastrointestinal: no abdominal pain, no nausea, no vomiting, no diarrhea Genitourinary Male: no dysuria, no hematuria, no flank pain, no nocturia Musculoskeletal: no neck pain, no low back pain Integumentary: no rash, no pruritis Neurological: no headaches, no confusion Psychiatric: no anxiety, no depression Endocrine: no polyphagia, no polyuria, no nocturia Exam - Constitutional Vitals: Temp Pulse Resp BP Pulse Ox 98.3 F 82 18 167/91 96 08/14/21 21:39 08/14/21 21:39 08/14/21 21:39 08/14/21 21:39 08/14/21 21:39 General appearance: Present: no acute distress, well-nourished - EENT Eyes: Present: PERRL, EOM intact. Absent: scleral icterus ENT: hearing intact, clear oral mucosa, dentition normal - Neck Neck: Present: supple, normal ROM - Respiratory Respiratory effort: normal Respiratory: bilateral: CTA - Cardiovascular Rhythm: regular Heart Sounds: Present: S1 & S2. Absent: gallop, systolic murmur, diastolic murmur, rub, click - Extremities Extremities: no ischemia, pulses intact, pulses symmetrical, No edema, normal temperature, normal color, Full ROM Peripheral Pulses: within normal limits - Abdominal General gastrointestinal: Present: soft, non-tender, non-distended, normal bowel sounds. Absent: mass - Integumentary Integumentary: Present: clear, warm, dry, normal turgor. Absent: rash - Musculoskeletal Musculoskeletal: strength equal bilaterally - Psychiatric Psychiatric: appropriate mood/affect, intact judgment & insight, memory intact, cooperative - Neurologic Neurologic: CNII-XII intact, no focal deficits, moves all extremities HEART Score - HEART Score History: Slightly suspicious EKG: Normal Age: > 65 Risk factors: > 3 risk factors or hx of atherosclerotic disease Troponin: Troponin T 0.017 ng/mL (0.00-0.029) 08/14/21 21:15 Troponin: < normal limit HEART Score: 4 - Critical Actions Critical Actions: 4-6 pts:12-16.6% risk of adverse cardiac event. Should be admitted Results - Labs CBC & Chem 7: 08/15/21 01:07 08/15/21 01:07 Labs: Abnormal lab results 08/14/21 08/14/21 08/14/21 Range/Units 18:36 18:36 18:36 RBC 3.62 L (3.65-5.03) M/mm3 Hct 34.6 L (35.5-45.6) % MCV 96 H (84-94) fl MCH 33 H (28-32) pg [place] % (Auto) 9.3 H (0.0-7.3) % Sodium 132 L (137-145) mmol/L Potassium 3.5 L (3.6-5.0) mmol/L Chloride 97.1 L (98-107) mmol/L BUN 24 H (9-20) mg/dL Plasma/Serum Alcohol 0.15 H (0-0.07) % Assessment and Plan - Patient Problems (1) Chest pain Current Visit: Yes Status: Acute Qualifiers: Chest pain type: unspecified Qualified Code(s): R07.9 - Chest pain, unspecified Plan to address problem: We will check serial cardiac enzymes. Patient placed on aspirin, sublingual nitroglycerin and IV morphine for chest pain. Will await further evaluation by cardiology. (2) History of coronary artery disease Current Visit: Yes Status: Acute Plan to address problem: Patient has had bypass surgery in the past. He follows up with cardiology at [facility]. Will await cardiology evaluation and recommendations. (3) Hypertension Current Visit: Yes Status: Chronic Qualifiers: Hypertension type: primary hypertension Plan to address problem: We will resume routine home medications once reconciled. We will monitor vital signs closely. (4) Alcohol use Current Visit: Yes Status: Acute Plan to address problem: Patient counseled on quitting alcohol abuse. We will place on CIWA protocol. (5) DVT prophylaxis Current Visit: No Status: Acute Plan to address problem: Patient placed on subcutaneous heparin. (6) Full code status Current Visit: Yes Status: Acute Plan to address problem: Patient is full code.
[2021-08-14] MEDS ORDERED: LORazepam 2 MG/ML VIAL IV PRN ×3 (23:06)
[2021-08-15 01:36] LABS: Basophils % (Auto) 0.6 % (0.0-1.8); Eosinophils # (Auto) 0.1 K/mm3 (0.0-0.4); Eosinophils % (Auto) 1.7 % (0.0-4.3); Hematocrit 34.3 % (35.5-45.6); Hemoglobin 11.6 gm/dl (11.8-15.2); Lymphocytes # (Auto) 1.4 K/mm3 (1.2-5.4); Lymphocytes % (Auto) 28.7 % (13.4-35.0); Mean Corpuscular HGB Conc 34 % (32-34); Mean Corpuscular Volume 96 fl (84-94); Monocytes # (Auto) 0.6 K/mm3 (0.0-0.8); Platelet Count 174 K/mm3 (140-440); Red Blood Count 3.57 M/mm3 (3.65-5.03)
[2021-08-15 02:08] LABS: BUN/Creatinine Ratio 18; Blood Urea Nitrogen 22 mg/dL (9-20); Calcium 9.1 mg/dL (8.4-10.2); Chol/HDL Ratio 3.48 %; HDL Cholesterol 54 mg/dL (40-59); Hemolysis Index 15; LDL Cholesterol,Direct TNR mg/dL (50-130)
[2021-08-15] MEDS ORDERED: HEPARIN 5,000 UNIT/1 ML VIAL SUB-Q SCH (06:00)
[2021-08-15] MEDS: ACETAMINOPHEN 325 MG TAB PO PRN ×2 (07:37→21:23)
[2021-08-15 08:51] LABS: BUN/Creatinine Ratio 18; Blood Urea Nitrogen 22 mg/dL (9-20); Calcium 9.1 mg/dL (8.4-10.2); Hemolysis Index 35
[2021-08-15 08:52] LABS: INR 0.9 (0.87-1.13)
[2021-08-15 09:44] LABS: Hematocrit 39.1 % (35.5-45.6); Hemoglobin 12.9 gm/dl (11.8-15.2); Mean Corpuscular HGB Conc 33 % (32-34); Mean Corpuscular Volume 97 fl (84-94); Red Blood Count 4.02 M/mm3 (3.65-5.03); Red Cell Distribution Width 14.3 % (13.2-15.2)
[2021-08-15 09:49] LABS: Platelet Count 92 K/mm3 (140-440)
[2021-08-15] MEDS ORDERED: ASPIRIN EC 325 MG TAB PO SCH (10:00)
[2021-08-15] MEDS ORDERED: NON-FORMULARY EACH (Rivaroxaban 20 MG Tablet) PO SCH (12:00)
--- NOTE | 2021-08-15 12:02 | Consultation ---
Past History Past Medical History: acute OR, CAD, heart failure, hypertension, renal failure, other (Gastric Ulcer, ) Past Surgical History: CABG, PTCA, Other (Neck Surgery) Social history: alcohol abuse Family history: no significant family history Medications and Allergies Allergies Allergy/AdvReac Type Severity Reaction Status Date / Time codeine Allergy Rash Verified 04/09/20 20:48 tramadol Allergy Rash Verified 04/09/20 20:48 Home Medications Medication Instructions Recorded Confirmed Last Taken Type amLODIPine 10 mg PO DAILY #30 09/27/19 03/14/20 2 Weeks Ago Rx ~08/01/21 Ferrous Sulfate [Iron 325 MG] 1 tab PO DAILY 02/04/20 03/14/20 2 Weeks Ago History ~08/01/21 Gabapentin 300 mg PO HS 02/04/20 03/14/20 2 Weeks Ago History ~08/01/21 Aspirin [Aspirin BABY CHEW TAB] 81 mg PO QDAY #30 tab.chew 02/09/20 03/14/20 2 Weeks Ago Rx ~08/01/21 AtorvaSTATin [Lipitor] 40 mg PO QHS #30 tablet 02/09/20 03/14/20 2 Weeks Ago Rx ~08/01/21 Clopidogrel [Plavix] 75 mg PO QDAY #30 tablet 02/09/20 03/14/20 Unknown Rx Folic Acid [Folvite] 1 mg PO QDAY #30 tablet 02/09/20 03/14/20 2 Weeks Ago Rx ~08/01/21 ISOSORBIDE MONOnitrate [Imdur ER] 30 mg PO QDAY #30 tablet 03/14/20 2 Weeks Ago Rx ~08/01/21 Losartan [Cozaar] 100 mg PO QDAY #30 tablet 03/14/20 2 Weeks Ago Rx ~08/01/21 Metoprolol Xl [Metoprolol 100 mg PO QDAY #30 03/14/20 2 Weeks Ago Rx SUCCINATE ER TAB] ~08/01/21 Pantoprazole [Protonix TAB] 40 mg PO BID #60 tablet 03/14/20 2 Weeks Ago Rx ~08/01/21 Rivaroxaban [Xarelto] 20 mg PO QDDIAB #30 tablet 03/14/20 1 Month Ago Rx ~07/15/21 methOCARBAMOL [Robaxin TAB] 750 mg PO BID #30 05/30/20 2 Weeks Ago Rx ~08/01/21 Active Meds: Active Medications Acetaminophen (Acetaminophen 325 Mg Tab) 650 mg PO Q4H PRN PRN Reason: Pain MILD(1-3)/Fever >100.5/VÁSQUEZ Last Admin: 08/15/21 07:37 Dose: 650 mg Documented by: Amlodipine Besylate (Amlodipine 10 Mg Tab) 10 mg PO DAILY [facility] Aspirin (Aspirin 81 Mg Tab Chew) 81 mg PO QDAY [facility] Atorvastatin Calcium (Atorvastatin 40 Mg Tab) 40 mg PO QHS [facility] Clopidogrel Bisulfate (Clopidogrel 75 Mg Tab) 75 mg PO QDAY [facility] Ferrous Sulfate (Ferrous Sulfate 325 Mg Tab) 325 mg PO DAILY [facility] Folic Acid (Folic Acid 1 Mg Tab) 1 mg PO QDAY [facility] Gabapentin (Gabapentin 300 Mg Cap) 300 mg PO HS [facility] Heparin Sodium (Porcine) (Heparin 5,000 Unit/1 Ml Vial) 5,000 unit SUB-Q Q8HR [facility] Last Admin: 08/15/21 07:37 Dose: 5,000 unit Documented by: Hydralazine HCl (Hydralazine 20 Mg/1 Ml Inj) 5 mg IV Q30MIN PRN PRN Reason: Hypertension Isosorbide Mononitrate (Isosorbide Mononitrate Er 30 Mg Tab) 30 mg PO QDAY [facility] Lorazepam (Lorazepam 2 Mg/Ml Vial) 2 mg IV Q1HR PRN PRN Reason: CIWA-Ar 8-15 Lorazepam (Lorazepam 2 Mg/Ml Vial) 4 mg IV Q1HR PRN PRN Reason: CIWA-Ar 16-25 Lorazepam (Lorazepam 2 Mg/Ml Vial) 4 mg IV Q15MIN PRN PRN Reason: CIWA-Ar >25 Losartan Potassium (Losartan 50 Mg Tab) 100 mg PO QDAY [facility] Magnesium Hydroxide (Magnesium Hydroxide (Mom) Oral Liqd Udc) 30 ml PO Q4H PRN PRN Reason: Constipation Metoprolol Succinate (Metoprolol Succinate Xl 100 Mg Tab) 100 mg PO QDAY [facility] Morphine Sulfate (Morphine 2 Mg/1 Ml Inj) 2 mg IV Q4H PRN PRN Reason: Pain, Moderate (4-6) Morphine Sulfate (Morphine 4 Mg/1 Ml Inj) 4 mg IV Q4H PRN PRN Reason: Pain , Severe (7-10) Morphine Sulfate (Morphine 2 Mg/1 Ml Inj) 2 mg IV Q5MIN PRN PRN Reason: Chest Pain unrelieved by NTG Nitroglycerin (Nitroglycerin 0.4 Mg Tab Subl) 0.4 mg SL Q5M PRN PRN Reason: Chest Pain Ondansetron HCl (Ondansetron 4 Mg/2 Ml Inj) 4 mg IV Q8H PRN PRN Reason: Nausea And Vomiting Pantoprazole Sodium (Pantoprazole 40 Mg Tab) 40 mg PO BID RONNY Rivaroxaban (Rivaroxaban 20 Mg Tab) 20 mg PO QDDIAB RONNY Sodium Chloride (Sodium Chloride 0.9% 10 Ml Flush Syringe) 10 ml IV BID RONNY Last Admin: 08/15/21 09:18 Dose: 10 ml Documented by: Sodium Chloride (Sodium Chloride 0.9% 10 Ml Flush Syringe) 10 ml IV PRN PRN PRN Reason: LINE FLUSH Sodium Chloride (Sodium Chloride 0.9% 10 Ml Flush Syringe) 10 ml IV PRN PRN PRN Reason: LINE FLUSH Physical Examination Vital Signs Temp Pulse Resp BP Pulse Ox 98.3 F 82 18 167/91 96 08/14/21 21:39 08/14/21 21:39 08/14/21 21:39 08/14/21 21:39 08/14/21 21:39 Results 08/15/21 07:18 08/15/21 07:18 Cardiac Enzymes 08/14/21 08/14/21 08/14/21 Range/Units 18:36 18:36 18:36 WBC 5.5 (4.5-11.0) K/mm3 RBC 3.62 L (3.65-5.03) M/mm3 Hgb 11.9 (11.8-15.2) gm/dl Hct 34.6 L (35.5-45.6) % MCV 96 H (84-94) fl MCH 33 H (28-32) pg MCHC 34 (32-34) % RDW 13.9 (13.2-15.2) % Plt Count 191 (140-440) K/mm3 Lymph % (Auto) 23.8 (13.4-35.0) % [place] % (Auto) 9.3 H (0.0-7.3) % Eos % (Auto) 0.3 (0.0-4.3) % Baso % (Auto) 0.4 (0.0-1.8) % Lymph # (Auto) 1.3 (1.2-5.4) K/mm3 [place] # (Auto) 0.5 (0.0-0.8) K/mm3 Eos # (Auto) 0.0 (0.0-0.4) K/mm3 Baso # (Auto) 0.0 (0.0-0.1) K/mm3 Seg Neutrophils % 66.2 (40.0-70.0) % Seg Neutrophils # 3.6 (1.8-7.7) K/mm3 PT (12.2-14.9) Sec. INR (0.87-1.13) Sodium 132 L (137-145) mmol/L Potassium 3.5 L (3.6-5.0) mmol/L Chloride 97.1 L (98-107) mmol/L Carbon Dioxide 22 (22-30) mmol/L Anion Gap 16 mmol/L BUN 24 H (9-20) mg/dL Creatinine 1.2 (0.8-1.3) mg/dL Estimated GFR > 60 ml/min BUN/Creatinine Ratio 20 % Glucose 98 (75-100) mg/dL Calcium 9.2 (8.4-10.2) mg/dL Total Bilirubin 0.20 (0.1-1.2) mg/dL AST 30 (5-40) units/L ALT 20 (7-56) units/L Alkaline Phosphatase 52 (35-129) units/L Troponin T 0.017 (0.00-0.029) ng/mL Total Protein 6.8 (6.3-8.2) g/dL Albumin 3.9 (3.9-5) g/dL Albumin/Globulin Ratio 1.3 % Triglycerides (2-149) mg/dL Cholesterol (50-199) mg/dL LDL Cholesterol Direct HDL Cholesterol (40-59) mg/dL Cholesterol/HDL Ratio % Plasma/Serum Alcohol 0.15 H (0-0.07) % 08/14/21 08/15/21 08/15/21 Range/Units 21:15 01:07 01:07 WBC 4.7 (4.5-11.0) K/mm3 RBC 3.57 L (3.65-5.03) M/mm3 Hgb 11.6 L (11.8-15.2) gm/dl Hct 34.3 L (35.5-45.6) % MCV 96 H (84-94) fl MCH 33 H (28-32) pg MCHC 34 (32-34) % RDW 14.0 (13.2-15.2) % Plt Count 174 (140-440) K/mm3 Lymph % (Auto) 28.7 (13.4-35.0) % [place] % (Auto) 12.0 H (0.0-7.3) % Eos % (Auto) 1.7 (0.0-4.3) % Baso % (Auto) 0.6 (0.0-1.8) % Lymph # (Auto) 1.4 (1.2-5.4) K/mm3 [place] # (Auto) 0.6 (0.0-0.8) K/mm3 Eos # (Auto) 0.1 (0.0-0.4) K/mm3 Baso # (Auto) 0.0 (0.0-0.1) K/mm3 Seg Neutrophils % 57.0 (40.0-70.0) % Seg Neutrophils # 2.7 (1.8-7.7) K/mm3 PT (12.2-14.9) Sec. INR (0.87-1.13) Sodium 138 (137-145) mmol/L Potassium 3.8 (3.6-5.0) mmol/L Chloride 100.7 (98-107) mmol/L Carbon Dioxide 23 (22-30) mmol/L Anion Gap 18 mmol/L BUN 22 H (9-20) mg/dL Creatinine 1.2 (0.8-1.3) mg/dL Estimated GFR > 60 ml/min BUN/Creatinine Ratio 18 % Glucose 100 (75-100) mg/dL Calcium 9.1 (8.4-10.2) mg/dL Total Bilirubin (0.1-1.2) mg/dL AST (5-40) units/L ALT (7-56) units/L Alkaline Phosphatase (35-129) units/L Troponin T 0.017 (0.00-0.029) ng/mL Total Protein (6.3-8.2) g/dL Albumin (3.9-5) g/dL Albumin/Globulin Ratio % Triglycerides 421 H (2-149) mg/dL Cholesterol 188 (50-199) mg/dL LDL Cholesterol Direct TNR HDL Cholesterol 54 (40-59) mg/dL Cholesterol/HDL Ratio 3.48 % Plasma/Serum Alcohol (0-0.07) % 08/15/21 08/15/21 08/15/21 Range/Units 01:07 07:18 07:18 WBC 4.5 (4.5-11.0) K/mm3 RBC 4.02 (3.65-5.03) M/mm3 Hgb 12.9 (11.8-15.2) gm/dl Hct 39.1 (35.5-45.6) % MCV 97 H (84-94) fl MCH 32 (28-32) pg MCHC 33 (32-34) % RDW 14.3 (13.2-15.2) % Plt Count 92 L (140-440) K/mm3 Lymph % (Auto) (13.4-35.0) % [place] % (Auto) (0.0-7.3) % Eos % (Auto) (0.0-4.3) % Baso % (Auto) (0.0-1.8) % Lymph # (Auto) (1.2-5.4) K/mm3 [place] # (Auto) (0.0-0.8) K/mm3 Eos # (Auto) (0.0-0.4) K/mm3 Baso # (Auto) (0.0-0.1) K/mm3 Seg Neutrophils % (40.0-70.0) % Seg Neutrophils # (1.8-7.7) K/mm3 PT 12.7 (12.2-14.9) Sec. INR 0.90 (0.87-1.13) Sodium (137-145) mmol/L Potassium (3.6-5.0) mmol/L Chloride (98-107) mmol/L Carbon Dioxide (22-30) mmol/L Anion Gap mmol/L BUN (9-20) mg/dL Creatinine (0.8-1.3) mg/dL Estimated GFR ml/min BUN/Creatinine Ratio % Glucose (75-100) mg/dL Calcium (8.4-10.2) mg/dL Total Bilirubin (0.1-1.2) mg/dL AST (5-40) units/L ALT (7-56) units/L Alkaline Phosphatase (35-129) units/L Troponin T 0.014 (0.00-0.029) ng/mL Total Protein (6.3-8.2) g/dL Albumin (3.9-5) g/dL Albumin/Globulin Ratio % Triglycerides (2-149) mg/dL Cholesterol (50-199) mg/dL LDL Cholesterol Direct HDL Cholesterol (40-59) mg/dL Cholesterol/HDL Ratio % Plasma/Serum Alcohol (0-0.07) % 08/15/ Range/Units 07:18 WBC (4.5-11.0) K/mm3 RBC (3.65-5.03) M/mm3 Hgb (11.8-15.2) gm/dl Hct (35.5-45.6) % MCV (84-94) fl MCH (28-32) pg MCHC (32-34) % RDW (13.2-15.2) % Plt Count (140-440) K/mm3 Lymph % (Auto) (13.4-35.0) % [place] % (Auto) (0.0-7.3) % Eos % (Auto) (0.0-4.3) % Baso % (Auto) (0.0-1.8) % Lymph # (Auto) (1.2-5.4) K/mm3 [place] # (Auto) (0.0-0.8) K/mm3 Eos # (Auto) (0.0-0.4) K/mm3 Baso # (Auto) (0.0-0.1) K/mm3 Seg Neutrophils % (40.0-70.0) % Seg Neutrophils # (1.8-7.7) K/mm3 PT (12.2-14.9) Sec. INR (0.87-1.13) Sodium 138 (137-145) mmol/L Potassium 4.3 (3.6-5.0) mmol/L Chloride 101.6 (98-107) mmol/L Carbon Dioxide 26 (22-30) mmol/L Anion Gap 15 mmol/L BUN 22 H (9-20) mg/dL Creatinine 1.2 (0.8-1.3) mg/dL Estimated GFR > 60 ml/min BUN/Creatinine Ratio 18 % Glucose 99 (75-100) mg/dL Calcium 9.1 (8.4-10.2) mg/dL Total Bilirubin (0.1-1.2) mg/dL AST (5-40) units/L ALT (7-56) units/L Alkaline Phosphatase (35-129) units/L Troponin T 0.017 (0.00-0.029) ng/mL Total Protein (6.3-8.2) g/dL Albumin (3.9-5) g/dL Albumin/Globulin Ratio % Triglycerides (2-149) mg/dL Cholesterol (50-199) mg/dL LDL Cholesterol Direct HDL Cholesterol (40-59) mg/dL Cholesterol/HDL Ratio % Plasma/Serum Alcohol (0-0.07) % Coagulation 08/15/21 Range/Units 07:18 PT 12.7 (12.2-14.9) Sec. INR 0.90 (0.87-1.13) Lipids 08/15/21 Range/Units 01:07 Triglycerides 421 H (2-149) mg/dL Cholesterol 188 (50-199) mg/dL HDL Cholesterol 54 (40-59) mg/dL Cholesterol/HDL Ratio 3.48 % CBC 08/14/21 08/15/21 08/15/21 Range/Units 18:36 01:07 07:18 WBC 5.5 4.7 4.5 (4.5-11.0) K/mm3 RBC 3.62 L 3.57 L 4.02 (3.65-5.03) M/mm3 Hgb 11.9 11.6 L 12.9 (11.8-15.2) gm/dl Hct 34.6 L 34.3 L 39.1 (35.5-45.6) % Plt Count 191 174 92 L (140-440) K/mm3 Lymph # (Auto) 1.3 1.4 (1.2-5.4) K/mm3 [place] # (Auto) 0.5 0.6 (0.0-0.8) K/mm3 Eos # (Auto) 0.0 0.1 (0.0-0.4) K/mm3 Baso # (Auto) 0.0 0.0 (0.0-0.1) K/mm3 Comprehensive Metabolic Panel 08/14/21 08/15/21 08/15/21 Range/Units 18:36 01:07 07:18 Sodium 132 L 138 138 (137-145) mmol/L Potassium 3.5 L 3.8 4.3 (3.6-5.0) mmol/L Chloride 97.1 L 100.7 101.6 (98-107) mmol/L Carbon Dioxide 22 23 26 (22-30) mmol/L BUN 24 H 22 H 22 H (9-20) mg/dL Creatinine 1.2 1.2 1.2 (0.8-1.3) mg/dL Glucose 98 100 99 (75-100) mg/dL Calcium 9.2 9.1 9.1 (8.4-10.2) mg/dL AST 30 (5-40) units/L ALT 20 (7-56) units/L Alkaline Phosphatase 52 (35-129) units/L Total Protein 6.8 (6.3-8.2) g/dL Albumin 3.9 (3.9-5) g/dL Assessment and Plan Full consultation dictated. Follow-up echocardiogram. Stress test Tuesday.
[2021-08-15] MEDS: CLOPIDOGREL 75 MG TAB PO SCH (12:22)
[2021-08-15] MEDS: METOPROLOL SUCCINATE XL 100 MG TAB PO SCH (12:22)
[2021-08-15] MEDS: amLODIPine 10 MG TAB PO SCH (12:22)
[2021-08-15] MEDS: RIVAROXABAN 20 MG TAB PO SCH (12:22)
[2021-08-15] MEDS: ASPIRIN 81 MG TAB CHEW PO SCH ×2 (12:23→13:34)
--- NOTE | 2021-08-15 13:40 | Consultation ---
DATE OF CONSULTATION: 08/15/2021 CARDIOLOGY CONSULTATION REFERRING PHYSICIAN: Hospitalist service. REASON FOR CONSULTATION: Advice and opinion regarding chest pain. HISTORY OF PRESENT ILLNESS: The patient is a pleasant 75-year-old -[place] gentleman with a history of coronary artery disease status post PCI to PDA in 01/2020, status post CABG x2 in 05/2019, ischemic cardiomyopathy, paroxysmal atrial fibrillation on Xarelto, CKD, hypertension, ETOH abuse. Follows with [facility]. Has seen our practice during previous admissions here at [facility]. Having a sharp and pressure-like substernal chest pain. He has not been at this hospital for over a year. This states that he fell last week, but also having chest tightness with exertion, currently chest pain free on the telemetry floor. No diaphoresis. No syncope or presyncope. PAST MEDICAL HISTORY: As aforementioned. PAST SURGICAL HISTORY: Aforementioned. SOCIAL HISTORY: Alcohol abuse. FAMILY HISTORY: No family history of premature heart disease. ALLERGIES: CODEINE, TRAMADOL. INPATIENT AND OUTPATIENT MEDICATIONS: Reviewed. REVIEW OF SYSTEMS: As per HPI. LABORATORY DATA: Most recent workup in 02/2020, patient had a normal Lexiscan stress test here. Most recent echocardiogram was in 08/2019 which revealed ejection fraction of 35-40%, mild mitral regurgitation. EKG reveals normal sinus rhythm, LVH, left atrial enlargement. No acute ST segment shift. WBCs 4.5, hemoglobin 12.9, hematocrit 39.1, platelets 92. Sodium 138, potassium 4.3, creatinine 1.2. Alcohol level 0.15. ASSESSMENT: In summary, the patient is a pleasant 75-year-old -[place] gentleman with a complex medical history including PCI, CABG, presents with chest pain with typical and atypical features. Troponin negative x2. Followup echocardiogram. We will check stress test prior to discharge. Optimize medical therapy. The importance of diet and lifestyle compliance discussed. ETOH cessation also discussed. We will follow. TID: [id number] RECEIPT: [id number] JANELL/HILARY
[2021-08-15 14:38] LABS: Total Cells Counted 100
[2021-08-15 14:39] LABS: Burr Cells Few; Platelet Estimate Consistent w Auto; Target Cells 1+
--- NOTE | 2021-08-15 14:50 | Electrocardiograph Report ---
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
--- NOTE | 2021-08-15 17:00 | Progress Note ---
Assessment and Plan (1) Chest pain Current Visit: Yes Status: Acute Qualifiers: Chest pain type: unspecified Qualified Code(s): R07.9 - Chest pain, unspecified Plan to address problem: We will check serial cardiac enzymes. Patient placed on aspirin, sublingual nitroglycerin and IV morphine for chest pain. Will await further evaluation by cardiology. (2) History of coronary artery disease Current Visit: Yes Status: Acute Plan to address problem: Patient has had bypass surgery in the past. He follows up with cardiology at [facility]. Will await cardiology evaluation and recommendations. (3) Hypertension Current Visit: Yes Status: Chronic Qualifiers: Hypertension type: primary hypertension Plan to address problem: We will resume routine home medications once reconciled. We will monitor vital signs closely. (4) Alcohol use Current Visit: Yes Status: Acute Plan to address problem: Patient counseled on quitting alcohol abuse. We will place on CIWA protocol. (5) DVT prophylaxis Current Visit: No Status: Acute Plan to address problem: Patient placed on subcutaneous heparin. (6) Full code status Current Visit: Yes Status: Acute Plan to address problem: Patient is full code. Daily clinical course; 08/15/21; BP remains elevated at 200s, resume home meds adjust as needed. follow cardiology recommendation Subjective Date of service: 08/15/21 Objective - Constitutional Vitals: Vital Signs - 12hr 08/15/21 08/15/21 08/15/21 06:10 08:01 10:51 Temperature 98.2 F 97.9 F Pulse Rate 72 69 Pulse Rate [ 59 L Apical] Pulse Rate [ 59 L From Monitor] Respiratory 18 18 17 Rate Blood Pressure 198/96 196/101 O2 Sat by Pulse 98 98 96 Oximetry 08/15/21 08/15/21 11:41 16:06 Temperature 98.3 F 98.5 F Pulse Rate 83 81 Pulse Rate [ Apical] Pulse Rate [ From Monitor] Respiratory 18 18 Rate Blood Pressure 199/100 214/108 O2 Sat by Pulse 99 99 Oximetry - Labs CBC & Chem 7: 08/15/21 07:18 08/15/21 07:18 Labs: Abnormal lab results 08/14/21 08/14/21 08/14/21 Range/Units 18:36 18:36 18:36 RBC 3.62 L (3.65-5.03) M/mm3 Hgb (11.8-15.2) gm/dl Hct 34.6 L (35.5-45.6) % MCV 96 H (84-94) fl MCH 33 H (28-32) pg Plt Count (140-440) K/mm3 [place] % (Auto) 9.3 H (0.0-7.3) % Sodium 132 L (137-145) mmol/L Potassium 3.5 L (3.6-5.0) mmol/L Chloride 97.1 L (98-107) mmol/L BUN 24 H (9-20) mg/dL Triglycerides (2-149) mg/dL Plasma/Serum Alcohol 0.15 H (0-0.07) % 08/15/21 08/15/21 08/15/21 Range/Units 01:07 01:07 07:18 RBC 3.57 L (3.65-5.03) M/mm3 Hgb 11.6 L (11.8-15.2) gm/dl Hct 34.3 L (35.5-45.6) % MCV 96 H 97 H (84-94) fl MCH 33 H (28-32) pg Plt Count 92 L (140-440) K/mm3 [place] % (Auto) 12.0 H (0.0-7.3) % Sodium (137-145) mmol/L Potassium (3.6-5.0) mmol/L Chloride (98-107) mmol/L BUN 22 H (9-20) mg/dL Triglycerides 421 H (2-149) mg/dL Plasma/Serum Alcohol (0-0.07) % 08/15/21 Range/Units 07:18 RBC (3.65-5.03) M/mm3 Hgb (11.8-15.2) gm/dl Hct (35.5-45.6) % MCV (84-94) fl MCH (28-32) pg Plt Count (140-440) K/mm3 [place] % (Auto) (0.0-7.3) % Sodium (137-145) mmol/L Potassium (3.6-5.0) mmol/L Chloride (98-107) mmol/L BUN 22 H (9-20) mg/dL Triglycerides (2-149) mg/dL Plasma/Serum Alcohol (0-0.07) % HEART Score - HEART Score EKG: Normal Age: > 65 Risk factors: > 3 risk factors or hx of atherosclerotic disease Troponin: Troponin T 0.017 ng/mL (0.00-0.029) 08/15/21 07:18 Troponin: < normal limit - Critical Actions Critical Actions: 4-6 pts:12-16.6% risk of adverse cardiac event. Should be admitted
[2021-08-15] MEDS: hydrALAZINE 20 MG/1 ML INJ IV PRN (17:10)
[2021-08-15] MEDS: PANTOPRAZOLE 40 MG TAB PO SCH (21:21)
[2021-08-15] MEDS: GABAPENTIN 300 MG CAP PO SCH (21:21)
[2021-08-16] MEDS: hydrALAZINE 20 MG/1 ML INJ IV PRN (06:16)
[2021-08-16] MEDS: RIVAROXABAN 20 MG TAB PO SCH (09:27)
[2021-08-16] MEDS: LOSARTAN 50 MG TAB PO SCH (09:27)
[2021-08-16] MEDS: FOLIC ACID 1 MG TAB PO SCH (09:28)
[2021-08-16] MEDS: ASPIRIN 81 MG TAB CHEW PO SCH (09:28)
[2021-08-16] MEDS: CLOPIDOGREL 75 MG TAB PO SCH (09:28)
[2021-08-16] MEDS: PANTOPRAZOLE 40 MG TAB PO SCH ×2 (09:28→22:00)
[2021-08-16] MEDS: METOPROLOL SUCCINATE XL 100 MG TAB PO SCH (09:28)
[2021-08-16] MEDS: amLODIPine 10 MG TAB PO SCH (09:28)
[2021-08-16] MEDS: FERROUS SULFATE 325 MG TAB PO SCH (09:28)
--- NOTE | 2021-08-16 09:38 | Progress Note ---
Assessment and Plan Please see detailed consultation from yesterday. Patient is without complaints today Echocardiogram is reviewed with patient. Stress MPI in a.m. Stable cardiac status. Subjective Interval history: No complaints overnight. Objective Vital Signs Temp Pulse Pulse Pulse Resp BP BP 08/16/21 09:28 95 H 140/78 08/16/21 09:27 95 H 140/78 08/16/21 08:14 98.1 F 96 H 18 140/78 08/16/21 06:16 74 187/10 08/16/21 06:15 74 17 187/110 08/16/21 04:10 73 08/16/21 03:13 97.6 F 68 14 166/86 08/16/21 00:00 76 08/15/21 22:59 98.0 F 86 16 152/74 08/15/21 21:23 17 08/15/21 20:00 84 08/15/21 19:30 18 08/15/21 19:03 98.5 F 86 16 148/74 08/15/21 18:12 86 17 160/73 08/15/21 17:10 89 190/99 08/15/21 16:06 98.5 F 81 18 214/108 08/15/21 15:00 87 08/15/21 11:41 98.3 F 83 18 199/100 08/15/21 10:51 59 L 59 L 17 Pulse Ox 08/16/21 09:28 08/16/21 09:27 08/16/21 08:14 99 08/16/21 06:16 08/16/21 06:15 97 08/16/21 04:10 08/16/21 03:13 97 08/16/21 00:00 08/15/21 22:59 97 08/15/21 21:23 08/15/21 20:00 08/15/21 19:30 98 08/15/21 19:03 97 08/15/21 18:12 98 08/15/21 17:10 08/15/21 16:06 99 08/15/21 15:00 08/15/21 11:41 99 08/15/21 10:51 96 - Labs and Meds CBC 08/15/21 Range/Units 07:18 WBC 4.5 (4.5-11.0) K/mm3 RBC 4.02 (3.65-5.03) M/mm3 Hgb 12.9 (11.8-15.2) gm/dl Hct 39.1 (35.5-45.6) % Plt Count 92 L (140-440) K/mm3
--- NOTE | 2021-08-16 13:06 | Electrocardiograph Report ---
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
--- NOTE | 2021-08-16 13:09 | Electrocardiograph Report ---
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
[2021-08-16] MEDS: ACETAMINOPHEN 325 MG TAB PO PRN (14:51)
--- NOTE | 2021-08-16 15:52 | Progress Note ---
Assessment and Plan (1) Chest pain Current Visit: Yes Status: Acute Qualifiers: Chest pain type: unspecified Qualified Code(s): R07.9 - Chest pain, unspecified Plan to address problem: We will check serial cardiac enzymes. Patient placed on aspirin, sublingual nitroglycerin and IV morphine for chest pain. Will await further evaluation by cardiology. (2) History of coronary artery disease Current Visit: Yes Status: Acute Plan to address problem: Patient has had bypass surgery in the past. He follows up with cardiology at [facility]. Will await cardiology evaluation and recommendations. (3) Hypertension Current Visit: Yes Status: Chronic Qualifiers: Hypertension type: primary hypertension Plan to address problem: We will resume routine home medications once reconciled. We will monitor vital signs closely. (4) Alcohol use Current Visit: Yes Status: Acute Plan to address problem: Patient counseled on quitting alcohol abuse. We will place on CIWA protocol. (5) DVT prophylaxis Current Visit: No Status: Acute Plan to address problem: Patient placed on subcutaneous heparin. (6) Full code status Current Visit: Yes Status: Acute Plan to address problem: Patient is full code. Daily clinical course; 08/15/21; BP remains elevated at 200s, resume home meds adjust as needed. follow cardiology recommendation 08/16/21: planned for stress test tomorrow Subjective Date of service: 08/16/21 Objective - Constitutional Vitals: Vital Signs - 12hr 08/16/21 08/16/21 08/16/21 04:10 06:15 06:16 Temperature Pulse Rate 73 74 74 Respiratory 17 Rate Blood Pressure 187/10 Blood Pressure 187/110 [Left] O2 Sat by Pulse 97 Oximetry 08/16/21 08/16/21 08/16/21 08:14 09:27 09:28 Temperature 98.1 F Pulse Rate 96 H 95 H 95 H Respiratory 18 Rate Blood Pressure 140/78 140/78 140/78 Blood Pressure [Left] O2 Sat by Pulse 99 Oximetry 08/16/21 08/16/21 10:00 11:51 Temperature 98.5 F Pulse Rate 83 Respiratory 18 Rate Blood Pressure 116/70 Blood Pressure [Left] O2 Sat by Pulse 97 98 Oximetry - Labs CBC & Chem 7: 08/15/21 07:18 08/15/21 07:18 HEART Score - HEART Score EKG: Normal Age: > 65 Risk factors: > 3 risk factors or hx of atherosclerotic disease Troponin: Troponin T 0.017 ng/mL (0.00-0.029) 08/15/21 07:18 Troponin: < normal limit - Critical Actions Critical Actions: 4-6 pts:12-16.6% risk of adverse cardiac event. Should be admitted
[2021-08-16] MEDS: GABAPENTIN 300 MG CAP PO SCH (22:00)
[2021-08-17] MEDS ORDERED: REGADENOSON 0.4 MG/5 ML INJ IV ONE (06:43)
[2021-08-17] MEDS: ASPIRIN 81 MG TAB CHEW PO SCH (09:36)
[2021-08-17] MEDS: CLOPIDOGREL 75 MG TAB PO SCH (09:36)
[2021-08-17] MEDS: FERROUS SULFATE 325 MG TAB PO SCH (09:36)
[2021-08-17] MEDS: FOLIC ACID 1 MG TAB PO SCH (09:36)
[2021-08-17] MEDS: RIVAROXABAN 20 MG TAB PO SCH (09:36)
[2021-08-17] MEDS: PANTOPRAZOLE 40 MG TAB PO SCH (09:37)
[2021-08-17] MEDS: amLODIPine 10 MG TAB PO SCH (09:37)
--- NOTE | 2021-08-17 10:59 | Nuclear Medicine Report ---
APPROVED REPORT Exam: Nuclear Stress Test Indication: Chest pain Ht: 5 ft 7 in Wt: 180 lbs BSA: 1.93 m2 BMI: 28.18 Rhythm: NSR Stress Test Details Stress Test: Pharmacologic stress testing performed using 0.4 mg of regadenoson per 5 mL given IV over 10 seconds. HR Resting HR: 67 bpm Max HR Achieved: 97 bpm Max Heart Rate (APMHR): 146.877242 bpm Target HR (85% APMHR): 124.234451 bpm % of APMHR: 66.44 Recovery HR: 75 bpm HR response to stress: Normal HR response to stress BP Resting BP: 190/98 mmHg Max BP: 185/96 mmHg Recovery BP: 157/66 mmHg BP response to stress: Abnormal hypertensive response to stress. ECG Resting ECG: Sinus Rhythm Stress ECG: Sinus Rhythm Arrhythmia: None Recovery ECG: Sinus Rhythm Recovery Arrhythmia: None Clinical Reason for Termination: Completed protocol Stress Symptoms: None NM EXAM: Myocardial Perfusion REST/STRESS Imaging Protocol: Rest Tc-99m/Stress Tc-99m 1 day Resting Data Rest SPECT myocardial perfusion imaging was performed in supine position 45 minutes following the intravenous injection of 10 mCi of Tc-99m Myoview. Time of rest injection: 0655 Pharmacologic Stress Pharmacologic stress test was performed by injecting Regadenoson 0.4 mg IV push followed by the intravenous injection of 28 mCi of Tc-99m Myoview. Time of stress injection: 0828 Gated Stress SPECT was performed 30 minutes after stress injection. The images were gated to evaluate regional wall motion and calculate left ventricular ejection fraction. Study Quality Study: excellent Lung Uptake: Normal Study Data TID = 1.13. Perfusion Wall Motion The rest and stress images show normal left ventricular wall motion. Nuclear Conclusion ECG Findings: negative for ischemia Clinical Findings: negative for ischemia Nuclear Findings: negative for ischemia Exercise Capacity: not assessed Left Ventricular Function: normal Normal study. No scintigraphic evidence for myocardial ischemia or scar. Normal left ventricular size and function with no regional wall motion abnormalities.
--- NOTE | 2021-08-17 11:03 | Progress Note ---
Assessment and Plan pt stress test negative, reproducible chest pain continue current medications BP controlled added hydralazine 50 mg twice a day patient will follow with cardiology in 2 weeks discussed with patient about alcohol use and falling given the fact patient is on blood thinner - Patient Problems (1) Alcohol use Current Visit: Yes Status: Acute (2) Chest pain Current Visit: Yes Status: Acute Qualifiers: Chest pain type: chest pain on breathing Qualified Code(s): R07.1 - Chest pain on breathing; R07.81 - Pleurodynia (3) History of coronary artery disease Current Visit: Yes Status: Chronic (4) Hypertension Current Visit: Yes Status: Chronic Qualifiers: Hypertension type: primary hypertension Qualified Code(s): I10 - Essential (primary) hypertension (5) MIKAEL (acute kidney injury) Current Visit: No Status: Acute (6) Atrial fibrillation Current Visit: No Status: Chronic Qualifiers: Atrial fibrillation type: paroxysmal Qualified Code(s): I48.0 - Paroxysmal atrial fibrillation (7) CAD (coronary artery disease) Current Visit: No Status: Chronic Qualifiers: [place] vs. transplanted heart: [place] heart Subjective Date of service: 08/17/21 Principal diagnosis: chest pain Interval history: Reproducible pain with palpations Objective Vital Signs Temp Pulse Resp BP BP Pulse Ox 08/17/21 09:36 68 170/85 08/17/21 08:36 181/89 08/17/21 08:35 169/86 08/17/21 08:33 166/79 08/17/21 08:32 160/74 08/17/21 08:30 157/66 08/17/21 08:28 173/89 08/17/21 08:21 185/96 08/17/21 08:15 190/98 08/17/21 07:28 97.8 F 16 171/85 08/17/21 07:20 97 08/17/21 04:31 98.4 F 72 20 141/68 94 08/16/21 23:33 77 18 137/65 96 08/16/21 22:00 98 08/16/21 19:06 98.3 F 83 18 123/63 98 08/16/21 15:41 98.5 F 76 18 129/79 98 08/16/21 12:00 85 08/16/21 11:51 98.5 F 83 18 116/70 98 - Physical Examination General: Appears Well, No Apparent Distress HEENT: Positive: PERRL, EOMI Neck: Positive: neck supple Cardiac: Positive: Reg Rate and Rhythm Lungs: Positive: clear to auscultation Neuro: Positive: Grossly Intact Abdomen: /Rectal: Normal Prostate, No Masses Skin: Musculoskeletal: No Fluid Collection, No Pain, Normal Range of Motion Gait: Normal Gait Extremities: - Imaging and Cardiology Pharmacologic stress test: report reviewed (Normal myocardial perfusion normal LV function) - Telemetry EKG Rhythm: Sinus Rhythm (Sinus rhythm nonspecific ST-T's)
[2021-08-17] MEDS: LOSARTAN 50 MG TAB PO SCH (11:13)
[2021-08-17] MEDS: METOPROLOL SUCCINATE XL 100 MG TAB PO SCH (11:13)
[2021-08-17] MEDS ORDERED: hydrALAZINE 25 MG TAB PO SCH (12:00)
--- NOTE | 2021-08-17 13:26 | Discharge Summary ---
Providers - Providers Date of Admission: 08/14/21 21:39 Date of discharge: 08/17/21 Attending physician: MARIETTA HDEZ 08/14/21 Consult to Cardiac Rehabilitation [CONS] Routine Reason For Exam: Phase I 08/14/21 22:16 Consult to Cardiology [CONS] Routine Consulting Provider: SUNITA HARO Reason For Exam: CHEST PAIN 08/17/21 13:19 Physical Therapy Evaluation and Treat [CONS] Routine Reason For Exam: fall Comment: 08/17/21 13:22 Physical Therapy Evaluation and Treat [CONS] Stat Comment: Reason For Exam: h/o fall Primary care physician: [facility] ADIEL ZARATE MD Hospitalization Condition: Fair Disposition: HOME HEALTH CARE SERVICE Final Discharge Diagnosis (Prints w/discharge instructions): (1) Alcohol use. Current Visit: Yes Status: Acute. (2) Chest pain. Current Visit: Yes Status: Acute. Qualifiers: Chest pain type: chest pain on breathing Qualified Code(s): R07.1 - Chest pain on breathing; R07.81 - Pleurodynia. (3) History of coronary artery disease. Current Visit: Yes Status: Chronic. (4) Hypertension. Current Visit: Yes Status: Chronic. Qualifiers: Hypertension type: primary hypertension Qualified Code(s): I10 - Essential (primary) hypertension. (5) MIKAEL (acute kidney injury). Current Visit: No Status: Acute. (6) Atrial fibrillation. Current Visit: No Status: Chronic. Qualifiers: Atrial fibrillation type: paroxysmal Qualified Code(s): I48.0 - Paroxysmal atrial fibrillation. (7) CAD (coronary artery disease). Current Visit: No Status: Chronic. Qualifiers: [place] vs. transplanted heart: [place] heart Time spent for discharge: 34 minutes Core Measure Documentation - Palliative Care Palliative Care/ Comfort Measures: Not Applicable - Core Measures Any of the following diagnoses?: none Exam - Constitutional Vitals: Temp Pulse Resp BP Pulse Ox 98.3 F 77 18 123/59 97 08/17/21 13:11 08/17/21 13:08 08/17/21 13:08 08/17/21 13:08 08/17/21 13:08 Plan Activity: advance as tolerated Weight Bearing Status: Weight Bear as Tolerated Diet: low fat, low salt Additional Instructions: Follow-up at [facility] in 1 week Follow up with: PRIMARY CAREMD [Referring] - 3-5 Days SHIVANI MAYNARD MD [Staff Physician] - 7 Days Prescriptions: AtorvaSTATin [Lipitor] 40 mg PO QHS #30 tablet amLODIPine 10 mg PO DAILY #30 hydrALAZINE [Apresoline TAB] 50 mg PO BID #60 tablet Aspirin [Aspirin BABY CHEW TAB] 81 mg PO QDAY #30 tab.chew Losartan [Cozaar] 100 mg PO QDAY #30 tablet Folic Acid [Folvite] 1 mg PO QDAY #30 tablet ISOSORBIDE MONOnitrate [Imdur ER] 30 mg PO QDAY #30 tablet Ferrous Sulfate [Iron 325 MG] 1 tab PO DAILY #30 Metoprolol Xl [Metoprolol SUCCINATE ER TAB] 100 mg PO QDAY #30 Clopidogrel [Plavix] 75 mg PO QDAY #30 tablet Pantoprazole [Protonix TAB] 40 mg PO BID #60 tablet Rivaroxaban [Xarelto] 20 mg PO QDDIAB #30 tablet
[2021-08-17 15:34] LABS: Hematocrit 35.7 % (35.5-45.6); Hemoglobin 11.9 gm/dl (11.8-15.2); Mean Corpuscular HGB Conc 33 % (32-34); Mean Corpuscular Volume 97 fl (84-94); Platelet Count 272 K/mm3 (140-440); Red Blood Count 3.67 M/mm3 (3.65-5.03); Red Cell Distribution Width 14.3 % (13.2-15.2)
[2021-08-17] MEDS: ACETAMINOPHEN 325 MG TAB PO PRN (16:18)
[2021-08-17 20:35] VITALS: BP 139/74
== END 2021-08-17 20:50 | disposition home health service (06) ==
LOC: ED 18:19 → 4A 21:39
PROVIDERS: ADMIT Internal Medicine Geriatric Medicine; ATTEND Internal Medicine
DX: R07.89 Other chest pain (principal); I25.10 Atherosclerotic heart disease of native coronary artery without angina pectoris; I13.0 Hypertensive heart and chronic kidney disease with heart failure and stage 1 through stage 4 chronic kidney disease, or unspecified chronic kidney disease; I50.9 Heart failure, unspecified; N18.9 Chronic kidney disease, unspecified; N17.9 Acute kidney failure, unspecified; I48.0 Paroxysmal atrial fibrillation; I25.2 Old myocardial infarction; F10.929 Alcohol use, unspecified with intoxication, unspecified; R29.818 Other symptoms and signs involving the nervous system; Z87.19 Personal history of other diseases of the digestive system; Z95.1 Presence of aortocoronary bypass graft; Z79.899 Other long term (current) drug therapy; Z86.79 Personal history of other diseases of the circulatory system; Z98.890 Other specified postprocedural states; Z79.82 Long term (current) use of aspirin
CPT/HCPCS: 36415; 71045; 78452; 80048; 80053; 80061; 84484; 85025; 85027; 85610; 93005; 93017; 93306; 96365; 96366; 96372; 96375; 96376; 97116; 97162; 99285; A9270; A9502; G0378; J0360; J1644; J2270; J2785; J3411; J7030; 80320; 85007; G0480

== ENCOUNTER 2021-09-15 20:08 | Emergency (ER) | payer MEDICARE ==
[2021-09-15] MEDS ORDERED: hydrALAZINE 20 MG/1 ML INJ IV ONE (21:08)
--- NOTE | 2021-09-15 21:08 | Emergency Department Report ---
HPI - General Time Seen by Provider: 09/15/21 20:47 - HPI HPI: 75-year-old -[place] male presents to the emergency department via EMS from a local restaurant after he was stung by a yellow jacket. The patient says that as soon as he was stung by the yellowjacket "the lights went out" in terms of some transient blindness. Within a few minutes he says that the vision re turned enough for him to crawl to a nearby restaurant and have them call for EMS. At the time of my examination the patient says that his vision is back at its baseline ability. He complains of some nonspecific dizziness/lightheadedness. He denies any swelling of lips or throat, shortness of breath, difficulty swallowing, headache, numbness or paresthesias, chest pain. The patient does present with a very elevated blood pressure despite compliance with his antihypertensive medication. He does have a history of hypertension, CHF, coronary artery disease with bypass, and paroxysmal A. fib. He did not take anything, nor receive anything, for his symptoms prior to presentation today. ED Past Medical Hx - Past Medical History Hx Hypertension: Yes Hx Heart Attack/AMI: Yes Hx Renal Disease: Yes (CKD) Additional medical history: gastric ulcer. ETOH abuse. CAD - Surgical History Hx Coronary Stent: Yes (x3) Hx Open Heart Surgery: Yes Additional Surgical History: Neck surgery, CABG - Social History Smoking Status: Never Smoker - Medications Home Medications: Home Medications Medication Instructions Recorded Confirmed Last Taken Type Gabapentin 300 mg PO HS 02/04/20 03/14/20 2 Weeks Ago History ~08/01/21 methOCARBAMOL [Robaxin TAB] 750 mg PO BID #30 05/30/20 2 Weeks Ago Rx ~08/01/21 Aspirin [Aspirin BABY CHEW TAB] 81 mg PO QDAY #30 tab.chew 08/17/21 Unknown Rx AtorvaSTATin [Lipitor] 40 mg PO QHS #30 tablet 08/17/21 Unknown Rx Clopidogrel [Plavix] 75 mg PO QDAY #30 tablet 08/17/21 Unknown Rx Ferrous Sulfate [Iron 325 MG] 1 tab PO DAILY #30 08/17/21 Unknown Rx Folic Acid [Folvite] 1 mg PO QDAY #30 tablet 08/17/21 Unknown Rx ISOSORBIDE MONOnitrate [Imdur ER] 30 mg PO QDAY #30 tablet 08/17/21 Unknown Rx Losartan [Cozaar] 100 mg PO QDAY #30 tablet 08/17/21 Unknown Rx Metoprolol Xl [Metoprolol 100 mg PO QDAY #30 08/17/21 Unknown Rx SUCCINATE ER TAB] Pantoprazole [Protonix TAB] 40 mg PO BID #60 tablet 08/17/21 Unknown Rx Rivaroxaban [Xarelto] 20 mg PO QDDIAB #30 tablet 08/17/21 Unknown Rx amLODIPine 10 mg PO DAILY #30 08/17/21 Unknown Rx hydrALAZINE [Apresoline TAB] 50 mg PO BID #60 tablet 08/17/21 Unknown Rx Tamsulosin [Flomax] 0.4 mg PO QDAY #10 cap 09/15/21 Unknown Rx ED Review of Systems ROS: Stated complaint: STUNG BY BEE 3HRS AGO Other details as noted in HPI Comment: All other systems reviewed and negative Constitutional: denies: chills, fever Eyes: vision change (resolved). denies: eye pain ENT: denies: ear pain, throat pain Respiratory: denies: cough, shortness of breath Cardiovascular: denies: chest pain, palpitations Gastrointestinal: denies: abdominal pain, vomiting Genitourinary: denies: dysuria, discharge Musculoskeletal: denies: back pain, arthralgia Skin: denies: rash, lesions Neurological: other (dizzy/lightheaded). denies: headache Physical Exam - Physical Exam Physical Exam: GENERAL: The patient is well-developed well-nourished. HENT: Normocephalic. Atraumatic. Patient has moist mucous membranes. EYES: Extraocular motions are intact. Pupils equal reactive to light bilaterally. No nystagmus. NECK: Supple. Trachea is midline. CHEST/LUNGS: Clear to auscultation. There is no respiratory distress noted. HEART/CARDIOVASCULAR: Regular. There is no tachycardia. There is no murmur. ABDOMEN: Abdomen is soft, nontender. Patient has normal bowel sounds. SKIN: Skin is warm and dry. NEURO: The patient is awake, alert, and oriented. The patient is cooperative. The patient has no focal neurologic deficits. Normal speech. Cranial nerves II through XII grossly intact. No facial asymmetry. No pronator drift or dysmetria. MUSCULOSKELETAL: There is no tenderness or deformity. There is no limitation range of motion. ED Medical Decision Making - Lab Data Result diagrams: 09/15/21 20:57 09/15/21 20:57 Lab Results 09/15/21 09/15/21 09/15/21 Range/Units 20:57 20:57 20:57 WBC 6.5 (4.5-11.0) K/mm3 RBC 4.20 (3.65-5.03) M/mm3 Hgb 13.3 (11.8-15.2) gm/dl Hct 40.3 (35.5-45.6) % MCV 96 H (84-94) fl MCH 32 (28-32) pg MCHC 33 (32-34) % RDW 14.1 (13.2-15.2) % Plt Count 213 (140-440) K/mm3 Lymph % (Auto) 23.9 (13.4-35.0) % Carlton % (Auto) 7.3 (0.0-7.3) % Eos % (Auto) 0.9 (0.0-4.3) % Baso % (Auto) 0.6 (0.0-1.8) % Lymph # (Auto) 1.6 (1.2-5.4) K/mm3 Carlton # (Auto) 0.5 (0.0-0.8) K/mm3 Eos # (Auto) 0.1 (0.0-0.4) K/mm3 Baso # (Auto) 0.0 (0.0-0.1) K/mm3 Seg Neutrophils % 67.3 (40.0-70.0) % Seg Neutrophils # 4.4 (1.8-7.7) K/mm3 Sodium 137 (137-145) mmol/L Potassium 3.9 (3.6-5.0) mmol/L Chloride 96.1 L (98-107) mmol/L Carbon Dioxide 26 (22-30) mmol/L Anion Gap 19 mmol/L BUN 25 H (9-20) mg/dL Creatinine 1.5 H (0.8-1.3) mg/dL Estimated GFR 55 ml/min BUN/Creatinine Ratio 17 % Glucose 80 (75-100) mg/dL Calcium 9.5 (8.4-10.2) mg/dL Total Bilirubin 0.40 (0.1-1.2) mg/dL AST 48 H (5-40) units/L ALT 25 (7-56) units/L Alkaline Phosphatase 66 (35-129) units/L Troponin T 0.026 (0.00-0.029) ng/mL Total Protein 7.7 (6.3-8.2) g/dL Albumin 4.6 (3.9-5) g/dL Albumin/Globulin Ratio 1.5 % TSH (0.270-4.200) mlU/mL Urine Color (Yellow) Urine Turbidity (Clear) Urine pH (5.0-7.0) Ur Specific Coden (1.003-1.030) Urine Protein (Negative) mg/dL Urine Glucose (UA) (Negative) mg/dL Urine Ketones (Negative) mg/dL Urine Blood (Negative) Urine Nitrite (Negative) Urine Bilirubin (Negative) Urine Urobilinogen (<2.0) mg/dL Ur Leukocyte Esterase (Negative) Urine WBC (Auto) (0.0-6.0) /HPF Urine RBC (Auto) (0.0-6.0) /HPF U Epithel Cells (Auto) (0-13.0) /HPF Urine Bacteria (Auto) (Negative) /HPF Plasma/Serum Alcohol 0.12 H (0-0.07) % 09/15/21 09/15/21 Range/Units 20:57 Unknown WBC (4.5-11.0) K/mm3 RBC (3.65-5.03) M/mm3 Hgb (11.8-15.2) gm/dl Hct (35.5-45.6) % MCV (84-94) fl MCH (28-32) pg MCHC (32-34) % RDW (13.2-15.2) % Plt Count (140-440) K/mm3 Lymph % (Auto) (13.4-35.0) % Carlton % (Auto) (0.0-7.3) % Eos % (Auto) (0.0-4.3) % Baso % (Auto) (0.0-1.8) % Lymph # (Auto) (1.2-5.4) K/mm3 Carlton # (Auto) (0.0-0.8) K/mm3 Eos # (Auto) (0.0-0.4) K/mm3 Baso # (Auto) (0.0-0.1) K/mm3 Seg Neutrophils % (40.0-70.0) % Seg Neutrophils # (1.8-7.7) K/mm3 Sodium (137-145) mmol/L Potassium (3.6-5.0) mmol/L Chloride (98-107) mmol/L Carbon Dioxide (22-30) mmol/L Anion Gap mmol/L BUN (9-20) mg/dL Creatinine (0.8-1.3) mg/dL Estimated GFR ml/min BUN/Creatinine Ratio % Glucose (75-100) mg/dL Calcium (8.4-10.2) mg/dL Total Bilirubin (0.1-1.2) mg/dL AST (5-40) units/L ALT (7-56) units/L Alkaline Phosphatase (35-129) units/L Troponin T (0.00-0.029) ng/mL Total Protein (6.3-8.2) g/dL Albumin (3.9-5) g/dL Albumin/Globulin Ratio % TSH 1.890 (0.270-4.200) mlU/mL Urine Color Colorless (Yellow) Urine Turbidity Clear (Clear) Urine pH 6.0 (5.0-7.0) Ur Specific C[place] 1.003 (1.003-1.030) Urine Protein 30 mg/dl (Negative) mg/dL Urine Glucose (UA) Neg (Negative) mg/dL Urine Ketones Neg (Negative) mg/dL Urine Blood Mod (Negative) Urine Nitrite Neg (Negative) Urine Bilirubin Neg (Negative) Urine Urobilinogen < 2.0 (<2.0) mg/dL Ur Leukocyte Esterase Neg (Negative) Urine WBC (Auto) 1.0 (0.0-6.0) /HPF Urine RBC (Auto) < 1.0 (0.0-6.0) /HPF U Epithel Cells (Auto) < 1.0 (0-13.0) /HPF Urine Bacteria (Auto) 1+ (Negative) /HPF Plasma/Serum Alcohol (0-0.07) % - EKG Data -: EKG Interpreted by Dc EKG shows normal: sinus rhythm, axis, intervals (Slightly prolonged QTC), QRS complexes, ST-T waves Rate: normal - EKG Data When compared to previous EKG there are: no significant change Interpretation: unchanged when compared t (08/14/21) - Medical Decision Making This patient presents to the emergency department with a complaint of being stung by a yellow jacket followed by some transient vision loss. Within a few minutes the vision had returned and the patient was able to get into a restaurant and have them call 911. At the time of my examination, upon his presentation to the emergency department, all the patient's symptoms have resolved. He does not appear to have any localized swelling or skin reaction where he says that he was stung by a yellow jacket. He does not have any angioedema of the lips, and denies any angioedema of the tongue, throat, or any signs/symptoms of anaphylaxis. Also, on examination, the patient does not have any focal, motor or sensory deficits and his cranial nerves are intact. Patient does have extremely elevated blood pressure level with a systolic of about 210. Labs have been mostly unremarkable including CBC, metabolic panel, normal thyroid function, but the patient does have an elevated blood alcohol level of 0.12. He was given a dose of IV hydralazine and his blood pressure came down to within normal limits over the rest of his ED course. The patient was reevaluated multiple times over multiple hours and has remained stable without any return of the transient vision loss, or any signs of allergic reaction. The patient was able to urinate in small amounts, but complained of some urinary retention. He would not allow a Garza catheter or straight cath to be placed. The patient will be placed on Flomax with suspicion for BPH and has been given outpatient referral for urology. We discussed avoiding any further alcohol abuse. The patient will follow up with a primary care physician and will return to the emergency department with any worsening of his symptoms or with any acute distress. Critical Care Time: No Critical care attestation.: If time is entered above; I have spent that time in minutes in the direct care of this critically ill patient, excluding procedure time. ED Disposition Clinical Impression: Asymptomatic hypertensive urgency, Transient vision disturbance Alcohol intoxication Qualifiers: Complication of substance-induced condition: with unspecified complication Qualified Code(s): F10.929 - Alcohol use, unspecified with intoxication, unspecified Disposition: 01 HOME / SELF CARE / HOMELESS Is pt being admited?: No Condition: Stable Instructions: Binge-Drinking Information, Adult, Visual Disturbances, Hypertension, Adult Additional Instructions: Please follow-up with your primary care physician in the next few days. I am giving you a referral for a local urologist, Dr. Mejía, to follow-up reg arding your issues with urinary retention. I am giving you a referral for 2 different local ophthalmology groups to follow- up regarding the brief episode of decreased vision that you had earlier today. Try to stay away from foods that are high in salt and caffeinated products. Keep a blood pressure log. Return to the emergency department with any worsening of your symptoms, new or concerning symptoms not addressed during this current emergency department visit, or with any acute distress. Prescriptions: Tamsulosin [Flomax] 0.4 mg PO QDAY #10 cap Referrals: PRIMARY CAREMD [Referring] - 3-5 Days LUCIANA MOODY MD [Staff Physician] - 3-5 Days [facility] [Provider Group] - 3-5 Days PCP, Your [Other] - 3-5 Days THERESA MEJÍA MD [Staff Physician] - 3-5 Days Time of Disposition: 23:46
[2021-09-15 21:14] LABS: Bacteria,Urine 1+ /HPF (Negative); Bilirubin,Urine NEG (Negative); Blood,Urine MOD (Negative); Color,Urine Colorless (Yellow); RBC,Urine < 1.0 /HPF (0.0-6.0); Urobilinogen,Urine < 2.0 mg/dL (<2.0)
[2021-09-15 21:21] LABS: Basophils % (Auto) 0.6 % (0.0-1.8); Eosinophils # (Auto) 0.1 K/mm3 (0.0-0.4); Eosinophils % (Auto) 0.9 % (0.0-4.3); Hematocrit 40.3 % (35.5-45.6); Hemoglobin 13.3 gm/dl (11.8-15.2); Lymphocytes # (Auto) 1.6 K/mm3 (1.2-5.4); Lymphocytes % (Auto) 23.9 % (13.4-35.0); Mean Corpuscular HGB Conc 33 % (32-34); Mean Corpuscular Volume 96 fl (84-94); Monocytes # (Auto) 0.5 K/mm3 (0.0-0.8); Monocytes % (Auto) 7.3 % (0.0-7.3); Platelet Count 213 K/mm3 (140-440); Red Cell Distribution Width 14.1 % (13.2-15.2)
[2021-09-15 21:43] LABS: Albumin 4.6 g/dL (3.9-5); Calcium 9.5 mg/dL (8.4-10.2)
[2021-09-16 00:18] VITALS: BP 106/58
--- NOTE | 2021-09-16 11:08 | Electrocardiograph Report ---
[facility] Test Date: 2021-09-15 Test Time: 21:58:26 Pat Name: AC HARVEY Department: Room: Gender: M [employer]: : 1945 Requested By: MILLIE DUNN Order Number: [id number] Reading MD: Umer Honeycutt Measurements Intervals Seibert Rate: 94 P: 71 HI: 145 QRS: 29 QRSD: 99 T: 59 QT: 403 QTc: 505 Interpretive Statements Sinus rhythm Prolonged QT interval Compared to ECG 08/15/2021 12:54:35 Prolonged QT interval now present Electronically Signed On 09-16-2021 11:07:55 EDT by Umer Honeycutt
== END 2021-09-16 00:30 | disposition home or self-care (01) ==
LOC: ED 20:08
DX: I16.0 Hypertensive urgency (principal); H53.129 Transient visual loss, unspecified eye; F10.929 Alcohol use, unspecified with intoxication, unspecified; I12.9 Hypertensive chronic kidney disease with stage 1 through stage 4 chronic kidney disease, or unspecified chronic kidney disease; N18.6 End stage renal disease; Z95.1 Presence of aortocoronary bypass graft; Z86.73 Personal history of transient ischemic attack (TIA), and cerebral infarction without residual deficits
CPT/HCPCS: 36415; 80053; 81001; 84443; 84484; 85025; 93005; 96374; 99284; J0360; 80320; G0480

== ENCOUNTER 2021-09-17 23:21 | Emergency (ER) | payer MEDICARE ==
[2021-09-18] MEDS ORDERED: SODIUM CHLORIDE 0.9% 1000 ML 1,000 ML IV ONE (00:24)
[2021-09-18] MEDS ORDERED: THIAMINE 100 MG, FOLIC ACID 1 MG, MULTIPLE VITAMIN INJ, ADULT 10 ML in SODIUM CHLORIDE ... IV ONE (00:24)
--- NOTE | 2021-09-18 00:27 | Emergency Department Report ---
ED Alcohol HPI - General Chief Complaint: Alcohol Stated Complaint: ETOH Time Seen by Provider: 09/18/21 00:23 Source: patient, EMS Mode of arrival: Stretcher Limitations: No Limitations - History of Present Illness Initial Comments: Patient is a 75-year-old male presents emergency room for acute intoxication and hypertension. Patient brought in by EMS. Patient has a history of hypertension, MA, CAD, hyperlipidemia. Patient has a history of chronic alcohol use. Patient denies pain. Patient denies any physical complaints. Patient denies fall or trauma. Patient denies recent travel. Patient denies recent international travel. Patient denies exposure to the novel coronavirus. Patient denies sick contacts. Patient denies fever and chills. Patient denies cough. Patient denies diarrhea. Patient denies coming in contact with anybody with symptoms of the novel coronavirus. MD Complaint: alcohol intoxication Last Drink: just [employer] Chronic Alcohol Use: Yes Previous Visits for Alcohol Intoxication?: Yes Recent Trauma: No Associated Symptoms: denies: nausea, vomiting, syncope, seizure, diaphoresis, tremors, abdominal pain, hematemesis, melena, depression, suicidality Treatments Prior to Arrival: none - Related Data Home Medications Medication Instructions Recorded Confirmed Last Taken Gabapentin 300 mg PO HS 02/04/20 03/14/20 2 Weeks Ago ~08/01/21 Previous Rx's Medication Instructions Recorded Last Taken Type methOCARBAMOL [Robaxin TAB] 750 mg PO BID #30 05/30/20 2 Weeks Ago Rx ~08/01/21 Aspirin [Aspirin BABY CHEW TAB] 81 mg PO QDAY #30 tab.chew 08/17/21 Unknown Rx AtorvaSTATin [Lipitor] 40 mg PO QHS #30 tablet 08/17/21 Unknown Rx Clopidogrel [Plavix] 75 mg PO QDAY #30 tablet 08/17/21 Unknown Rx Ferrous Sulfate [Iron 325 MG] 1 tab PO DAILY #30 08/17/21 Unknown Rx Folic Acid [Folvite] 1 mg PO QDAY #30 tablet 08/17/21 Unknown Rx ISOSORBIDE MONOnitrate [Imdur ER] 30 mg PO QDAY #30 tablet 08/17/21 Unknown Rx Losartan [Cozaar] 100 mg PO QDAY #30 tablet 08/17/21 Unknown Rx Metoprolol Xl [Metoprolol 100 mg PO QDAY #30 08/17/21 Unknown Rx SUCCINATE ER TAB] Pantoprazole [Protonix TAB] 40 mg PO BID #60 tablet 08/17/21 Unknown Rx Rivaroxaban [Xarelto] 20 mg PO QDDIAB #30 tablet 08/17/21 Unknown Rx amLODIPine 10 mg PO DAILY #30 08/17/21 Unknown Rx hydrALAZINE [Apresoline TAB] 50 mg PO BID #60 tablet 08/17/21 Unknown Rx Tamsulosin [Flomax] 0.4 mg PO QDAY #10 cap 09/15/21 Unknown Rx Allergies Allergy/AdvReac Type Severity Reaction Status Date / Time codeine Allergy Rash Verified 04/09/20 20:48 tramadol Allergy Rash Verified 04/09/20 20:48 ED Review of Systems ROS: Stated complaint: ETOH/CHEST PAIN Other details as noted in HPI Constitutional: denies: chills, fever Eyes: denies: eye pain, eye discharge, vision change ENT: denies: ear pain, throat pain Respiratory: denies: cough, shortness of breath, wheezing Cardiovascular: denies: chest pain, palpitations Endocrine: no symptoms reported Gastrointestinal: denies: abdominal pain, nausea, diarrhea Genitourinary: denies: urgency, dysuria Musculoskeletal: denies: back pain, joint swelling, arthralgia Skin: denies: rash, lesions Neurological: denies: headache, weakness, paresthesias Psychiatric: denies: anxiety, depression Hematological/Lymphatic: denies: easy bleeding, easy bruising ED Past Medical Hx - Past Medical History Previous Medical History?: Yes Hx Hypertension: Yes Hx Heart Attack/AMI: Yes Hx Renal Disease: Yes (CKD) Additional medical history: gastric ulcer. ETOH abuse. CAD - Surgical History Past Surgical History?: Yes Hx Coronary Stent: Yes (x3) Hx Open Heart Surgery: Yes Additional Surgical History: Neck surgery, CABG - Family History Family history: no significant - Social History Smoking Status: Never Smoker Substance Use Type: None - Medications Home Medications: Home Medications Medication Instructions Recorded Confirmed Last Taken Type Gabapentin 300 mg PO HS 02/04/20 03/14/20 2 Weeks Ago History ~08/01/21 methOCARBAMOL [Robaxin TAB] 750 mg PO BID #30 05/30/20 2 Weeks Ago Rx ~08/01/21 Aspirin [Aspirin BABY CHEW TAB] 81 mg PO QDAY #30 tab.chew 08/17/21 Unknown Rx AtorvaSTATin [Lipitor] 40 mg PO QHS #30 tablet 08/17/21 Unknown Rx Clopidogrel [Plavix] 75 mg PO QDAY #30 tablet 08/17/21 Unknown Rx Ferrous Sulfate [Iron 325 MG] 1 tab PO DAILY #30 08/17/21 Unknown Rx Folic Acid [Folvite] 1 mg PO QDAY #30 tablet 08/17/21 Unknown Rx ISOSORBIDE MONOnitrate [Imdur ER] 30 mg PO QDAY #30 tablet 08/17/21 Unknown Rx Losartan [Cozaar] 100 mg PO QDAY #30 tablet 08/17/21 Unknown Rx Metoprolol Xl [Metoprolol 100 mg PO QDAY #30 08/17/21 Unknown Rx SUCCINATE ER TAB] Pantoprazole [Protonix TAB] 40 mg PO BID #60 tablet 08/17/21 Unknown Rx Rivaroxaban [Xarelto] 20 mg PO QDDIAB #30 tablet 08/17/21 Unknown Rx amLODIPine 10 mg PO DAILY #30 08/17/21 Unknown Rx hydrALAZINE [Apresoline TAB] 50 mg PO BID #60 tablet 08/17/21 Unknown Rx Tamsulosin [Flomax] 0.4 mg PO QDAY #10 cap 09/15/21 Unknown Rx ED Physical Exam - General Limitations: No Limitations General appearance: alert, in no apparent distress - Head Head exam: Present: atraumatic, normocephalic - Eye Eye exam: Present: normal appearance - ENT ENT exam: Present: mucous membranes moist - Neck Neck exam: Present: normal inspection - Respiratory Respiratory exam: Present: normal lung sounds bilaterally. Absent: respiratory distress - Cardiovascular Cardiovascular Exam: Present: regular rate, normal rhythm. Absent: systolic murmur, diastolic murmur, rubs, gallop - GI/Abdominal GI/Abdominal exam: Present: soft, normal bowel sounds - Rectal Rectal exam: Present: deferred - Extremities Exam Extremities exam: Present: normal inspection - Back Exam Back exam: Present: normal inspection - Neurological Exam Neurological exam: Present: alert, oriented X3 - Psychiatric Psychiatric exam: Present: normal affect, normal mood - Skin Skin exam: Present: warm, dry, intact, normal color. Absent: rash ED Course Vital Signs 09/18/21 06:19 Pulse Rate 91 H Respiratory 17 Rate Blood Pressure 172/91 [Right] O2 Sat by Pulse 99 Oximetry Initial vital signs at 00 34: Blood pressure is 189/90, heart rate is 92, pulse ox is 99% on room air. - Reevaluation(s) Reevaluation #1: Patient is awake alert and oriented. Patient ambulatory in the room. Patient states she is ready to go. 09/18/21 05:21 Reevaluation #2: Patient is clinically sober. Patient monitored for several hours. I discussed all results and clinical findings with patient. I discussed plan of care with patient. Patient agrees with plan of care. Patient is stable for discharge. Patient will be discharged home. Patient given discharge instructions. Patient voiced understanding of discharge instructions. 09/18/21 06:19 ED Medical Decision Making - Lab Data Result diagrams: 09/18/21 00:33 09/18/21 00:33 - Medical Decision Making Patient is a 75-year-old male who presents emergency room for acute alcohol intoxication. Patient brought in by EMS. Patient has frequent ER visits for alcohol intoxication. Patient given fluids. Patient monitored for several hours until patient was clinically sober. Patient had labs done which were essentially unremarkable except for dehydration and mild renal insufficiency. Patient instructed to decrease alcohol intake. Patient has history of hypertension and instructed to be compliant with his medications and monitor his blood pressure at home. Patient not require further emergency medical service. Patient does not require inpatient services. Patient is stable for discharge. For the acute alcohol intoxication, the patient was monitored for several hours until the patient was clinically sober. I discussed all results and clinical findings with patient. I discussed plan of care with patient. Patient agrees with plan of care. Patient is stable for discharge. Patient will be discharged home. Patient given discharge instruc tions. Patient voiced understanding of discharge instructions. - Differential Diagnosis Acute intoxication Critical care attestation.: If time is entered above; I have spent that time in minutes in the direct care of this critically ill patient, excluding procedure time. ED Disposition Clinical Impression: Renal insufficiency, Dehydration Acute alcohol intoxication Qualifiers: Complication of substance-induced condition: uncomplicated Qualified Code(s): F10.920 - Alcohol use, unspecified with intoxication, uncomplicated Hypertension Qualifiers: Hypertension type: unspecified Qualified Code(s): I10 - Essential (primary) hypertension Disposition: 01 HOME / SELF CARE / HOMELESS Is pt being admited?: No Does the pt Need Aspirin: No Condition: Stable Instructions: Food Basics for Chronic Kidney Disease, Preventing Chronic Kidney Disease, Preventing Hypertension, Dehydration, Adult, Hypertension (ED), Binge-Drinking Information, Adult Additional Instructions: Patient to avoid alcohol use. Patient to follow-up with primary care in 2 to 3 days. Patient is a low-salt diet. Patient to monitor blood pressure at home. Patient to keep a blood pressure log. Patient to take blood pressure log to all follow-up appointments. Patient to rest. Patient to increase water. Patient to take Tylenol or as needed for pain. Patient to continue all medications. Patient to return to the ER if condition worsens, changes or new symptoms arise. Referrals: [facility] MD ADIEL [Primary Care Provider] - 2-3 Days Time of Disposition: 06:30
[2021-09-18 00:50] LABS: Basophils % (Auto) 0.5 % (0.0-1.8); Eosinophils % (Auto) 0.6 % (0.0-4.3); Hematocrit 37.6 % (35.5-45.6); Hemoglobin 12.6 gm/dl (11.8-15.2); Lymphocytes # (Auto) 1.9 K/mm3 (1.2-5.4); Lymphocytes % (Auto) 29.4 % (13.4-35.0); Mean Corpuscular HGB Conc 34 % (32-34); Mean Corpuscular Volume 95 fl (84-94); Monocytes # (Auto) 0.4 K/mm3 (0.0-0.8); Platelet Count 236 K/mm3 (140-440); Red Blood Count 3.98 M/mm3 (3.65-5.03)
[2021-09-18 01:09] LABS: Albumin 4.7 g/dL (3.9-5); Calcium 9.3 mg/dL (8.4-10.2)
[2021-09-18 06:19] VITALS: BP 172/91
== END 2021-09-18 09:46 | disposition home or self-care (01) ==
LOC: ED 23:21
DX: E86.0 Dehydration (principal); I12.9 Hypertensive chronic kidney disease with stage 1 through stage 4 chronic kidney disease, or unspecified chronic kidney disease; F10.129 Alcohol abuse with intoxication, unspecified; Z98.890 Other specified postprocedural states; Z88.5 Allergy status to narcotic agent; N18.9 Chronic kidney disease, unspecified
CPT/HCPCS: 36415; 80053; 85025; 96365; 96366; 99284; J3411; J7030; 80320; G0480

== ENCOUNTER 2021-09-23 19:24 | Emergency (ER) | payer MEDICARE ==
[2021-09-23 19:39] VITALS: BP 217/105
[2021-09-23] MEDS ORDERED: amLODIPine 5 MG TAB PO ONE (19:52)
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
== END 2021-09-23 20:17 | disposition home or self-care (01) ==
LOC: ED 19:24
DX: I12.9 Hypertensive chronic kidney disease with stage 1 through stage 4 chronic kidney disease, or unspecified chronic kidney disease (principal); N18.9 Chronic kidney disease, unspecified; J45.909 Unspecified asthma, uncomplicated; Z98.890 Other specified postprocedural states; Z88.6 Allergy status to analgesic agent; Z88.8 Allergy status to other drugs, medicaments and biological substances; Z88.5 Allergy status to narcotic agent; Z79.899 Other long term (current) drug therapy; Z79.82 Long term (current) use of aspirin
CPT/HCPCS: 99283

== ENCOUNTER 2021-10-06 21:33 | Emergency (ER) | payer MEDICARE ==
--- NOTE | 2021-10-06 22:36 | Emergency Department Report ---
ED Chest Pain HPI - General Chief Complaint: Chest Pain Stated Complaint: CHEST PAIN Time Seen by Provider: 10/06/21 22:24 Source: EMS Mode of arrival: Wheelchair Limitations: No Limitations - History of Present Illness Initial Comments: 75-year-old -[place] male presents to the emergency department with complaint of midsternal to left-sided chest pain that started about 1 hour prior to presentation while the patient was waiting at the bus stop. He has a past medical history of coronary artery disease with triple bypass 1 year ago and previous coronary stents, hypertension, gastric ulcer, CKD, proximal atrial fibrillation and recurrent alcohol abuse. The patient says that he drank 2 "[employer] fireball shots" earlier today. Patient describes the chest pain as a soreness and is 5 out of 10 in intensity. The patient says that his primary care and cardiology follow-up is through [facility]. He has not taken anything for symptoms prior to presentation. - Related Data Home Medications Medication Instructions Recorded Confirmed Last Taken Gabapentin 300 mg PO HS 02/04/20 03/14/20 2 Weeks Ago ~08/01/21 Previous Rx's Medication Instructions Recorded Last Taken Type methOCARBAMOL [Robaxin TAB] 750 mg PO BID #30 05/30/20 2 Weeks Ago Rx ~08/01/21 Aspirin [Aspirin BABY CHEW TAB] 81 mg PO QDAY #30 tab.chew 08/17/21 Unknown Rx AtorvaSTATin [Lipitor] 40 mg PO QHS #30 tablet 08/17/21 Unknown Rx Clopidogrel [Plavix] 75 mg PO QDAY #30 tablet 08/17/21 Unknown Rx Ferrous Sulfate [Iron 325 MG] 1 tab PO DAILY #30 08/17/21 Unknown Rx Folic Acid [Folvite] 1 mg PO QDAY #30 tablet 08/17/21 Unknown Rx ISOSORBIDE MONOnitrate [Imdur ER] 30 mg PO QDAY #30 tablet 08/17/21 Unknown Rx Losartan [Cozaar] 100 mg PO QDAY #30 tablet 08/17/21 Unknown Rx Metoprolol Xl [Metoprolol 100 mg PO QDAY #30 08/17/21 Unknown Rx SUCCINATE ER TAB] Pantoprazole [Protonix TAB] 40 mg PO BID #60 tablet 08/17/21 Unknown Rx Rivaroxaban [Xarelto] 20 mg PO QDDIAB #30 tablet 08/17/21 Unknown Rx amLODIPine 10 mg PO DAILY #30 08/17/21 Unknown Rx hydrALAZINE [Apresoline TAB] 50 mg PO BID #60 tablet 08/17/21 Unknown Rx Tamsulosin [Flomax] 0.4 mg PO QDAY #10 cap 09/15/21 Unknown Rx amLODIPine [Norvasc] 10 mg PO DAILY #30 tab 09/23/21 Unknown Rx Allergies Allergy/AdvReac Type Severity Reaction Status Date / Time codeine Allergy Rash Verified 10/06/21 22:20 loratadine Allergy Unknown Verified 10/06/21 22:20 tramadol Allergy Rash Verified 10/06/21 22:20 Heart Score - HEART Score History: Slightly suspicious EKG: Normal Age: > 65 Risk factors: > 3 risk factors or hx of atherosclerotic disease Troponin: < normal limit HEART Score: 4 - EKG Read Time Time EKG Completed: 23:00 EKG Read Time: 23:05 - Critical Actions Critical Actions: 4-6 pts:12-16.6% risk of adverse cardiac event. Should be admitted ED Review of Systems ROS: Stated complaint: CHEST PAIN Other details as noted in HPI Comment: All other systems reviewed and negative Constitutional: denies: chills, fever Eyes: denies: eye pain, vision change ENT: denies: ear pain, throat pain Respiratory: denies: cough, shortness of breath Cardiovascular: chest pain. denies: palpitations Gastrointestinal: denies: abdominal pain, vomiting Genitourinary: denies: dysuria, discharge Musculoskeletal: denies: back pain, arthralgia Skin: denies: rash, lesions Neurological: denies: headache, weakness ED Past Medical Hx - Past Medical History Hx Hypertension: Yes Hx Heart Attack/AMI: Yes Hx Renal Disease: Yes (CKD) Hx Asthma: Yes Additional medical history: gastric ulcer. ETOH abuse. CAD - Surgical History Hx Coronary Stent: Yes (x3) Hx Open Heart Surgery: Yes Additional Surgical History: Neck surgery, CABG - Social History Smoking Status: Never Smoker Substance Use Type: None - Medications Home Medications: Home Medications Medication Instructions Recorded Confirmed Last Taken Type Gabapentin 300 mg PO HS 02/04/20 03/14/20 2 Weeks Ago History ~08/01/21 methOCARBAMOL [Robaxin TAB] 750 mg PO BID #30 05/30/20 2 Weeks Ago Rx ~08/01/21 Aspirin [Aspirin BABY CHEW TAB] 81 mg PO QDAY #30 tab.chew 08/17/21 Unknown Rx AtorvaSTATin [Lipitor] 40 mg PO QHS #30 tablet 08/17/21 Unknown Rx Clopidogrel [Plavix] 75 mg PO QDAY #30 tablet 08/17/21 Unknown Rx Ferrous Sulfate [Iron 325 MG] 1 tab PO DAILY #30 08/17/21 Unknown Rx Folic Acid [Folvite] 1 mg PO QDAY #30 tablet 08/17/21 Unknown Rx ISOSORBIDE MONOnitrate [Imdur ER] 30 mg PO QDAY #30 tablet 08/17/21 Unknown Rx Losartan [Cozaar] 100 mg PO QDAY #30 tablet 08/17/21 Unknown Rx Metoprolol Xl [Metoprolol 100 mg PO QDAY #30 08/17/21 Unknown Rx SUCCINATE ER TAB] Pantoprazole [Protonix TAB] 40 mg PO BID #60 tablet 08/17/21 Unknown Rx Rivaroxaban [Xarelto] 20 mg PO QDDIAB #30 tablet 08/17/21 Unknown Rx amLODIPine 10 mg PO DAILY #30 08/17/21 Unknown Rx hydrALAZINE [Apresoline TAB] 50 mg PO BID #60 tablet 08/17/21 Unknown Rx Tamsulosin [Flomax] 0.4 mg PO QDAY #10 cap 09/15/21 Unknown Rx amLODIPine [Norvasc] 10 mg PO DAILY #30 tab 09/23/21 Unknown Rx ED Physical Exam - General Limitations: No Limitations - Other Other exam information: GENERAL: The patient is well-developed well-nourished. HENT: Normocephalic. Atraumatic. Patient has moist mucous membranes. EYES: Extraocular motions are intact. NECK: Supple. Trachea is midline. CHEST/LUNGS: Clear to auscultation. There is no respiratory distress noted. There is some reproducible chest wall tenderness to palpation without crepitus or deformity. HEART/CARDIOVASCULAR: Regular. There is no tachycardia. There is no murmur. ABDOMEN: Abdomen is soft, nontender. Patient has normal bowel sounds. SKIN: Skin is warm and dry. NEURO: The patient is awake, alert, and oriented. The patient is cooperative. Normal speech. MUSCULOSKELETAL: There is no tenderness or deformity. There is no limitation range of motion. ED Course Vital Signs 10/06/21 10/07/21 10/07/21 22:20 02:14 03:00 Temperature 98.2 F 97.9 F Pulse Rate 87 80 Respiratory 18 18 18 Rate Blood Pressure 180/95 154/90 [Right] O2 Sat by Pulse 98 98 Oximetry GARY score - Gary Score Age > 65: (1) Yes Aspirin use within the Past 7 Days: (0) No 3 or more CAD Risk Factors: (1) Yes 2 or more Angina events in past 24 hrs: (1) Yes Known CAD with more than 50% Stenosis: (1) Yes Elevated Cardiac Markers: (0) No ST Deviation Greater than 0.5mm: (0) No GARY Score: 4 ED Medical Decision Making - Lab Data Result diagrams: 10/06/21 22:34 10/06/21 22:34 Lab Results 10/06/21 10/06/21 10/06/21 Range/Units 22:34 22:34 22:34 WBC 5.9 (4.5-11.0) K/mm3 RBC 3.73 (3.65-5.03) M/mm3 Hgb 11.8 (11.8-15.2) gm/dl Hct 35.5 (35.5-45.6) % MCV 95 H (84-94) fl MCH 32 (28-32) pg MCHC 33 (32-34) % RDW 14.7 (13.2-15.2) % Plt Count 235 (140-440) K/mm3 Lymph % (Auto) 23.2 (13.4-35.0) % [place] % (Auto) 9.4 H (0.0-7.3) % Eos % (Auto) 1.1 (0.0-4.3) % Baso % (Auto) 0.4 (0.0-1.8) % Lymph # (Auto) 1.4 (1.2-5.4) K/mm3 [place] # (Auto) 0.6 (0.0-0.8) K/mm3 Eos # (Auto) 0.1 (0.0-0.4) K/mm3 Baso # (Auto) 0.0 (0.0-0.1) K/mm3 Seg Neutrophils % 65.9 (40.0-70.0) % Seg Neutrophils # 3.9 (1.8-7.7) K/mm3 Sodium 137 (137-145) mmol/L Potassium 4.4 (3.6-5.0) mmol/L Chloride 96.8 L (98-107) mmol/L Carbon Dioxide 25 (22-30) mmol/L Anion Gap 20 mmol/L BUN 42 H (9-20) mg/dL Creatinine 2.0 H (0.8-1.3) mg/dL Estimated GFR 40 ml/min BUN/Creatinine Ratio 21 % Glucose 77 (75-100) mg/dL Calcium 9.3 (8.4-10.2) mg/dL Troponin T 0.020 (0.00-0.029) ng/mL Plasma/Serum Alcohol 0.07 (0-0.07) % 10/07/21 Range/Units 01:29 WBC (4.5-11.0) K/mm3 RBC (3.65-5.03) M/mm3 Hgb (11.8-15.2) gm/dl Hct (35.5-45.6) % MCV (84-94) fl MCH (28-32) pg MCHC (32-34) % RDW (13.2-15.2) % Plt Count (140-440) K/mm3 Lymph % (Auto) (13.4-35.0) % [place] % (Auto) (0.0-7.3) % Eos % (Auto) (0.0-4.3) % Baso % (Auto) (0.0-1.8) % Lymph # (Auto) (1.2-5.4) K/mm3 [place] # (Auto) (0.0-0.8) K/mm3 Eos # (Auto) (0.0-0.4) K/mm3 Baso # (Auto) (0.0-0.1) K/mm3 Seg Neutrophils % (40.0-70.0) % Seg Neutrophils # (1.8-7.7) K/mm3 Sodium (137-145) mmol/L Potassium (3.6-5.0) mmol/L Chloride (98-107) mmol/L Carbon Dioxide (22-30) mmol/L Anion Gap mmol/L BUN (9-20) mg/dL Creatinine (0.8-1.3) mg/dL Estimated GFR ml/min BUN/Creatinine Ratio % Glucose (75-100) mg/dL Calcium (8.4-10.2) mg/dL Troponin T 0.018 (0.00-0.029) ng/mL Plasma/Serum Alcohol (0-0.07) % - EKG Data -: EKG Interpreted by Me EKG shows normal: sinus rhythm, axis, intervals, QRS complexes, ST-T waves Rate: normal - EKG Data When compared to previous EKG there are: no significant change Interpretation: normal EKG, unchanged when compared t (09/15/21) - Radiology Data Radiology results: image reviewed interpreted by me: Chest x-ray does not show any acute process. There are no pleural effusions, obvious pneumonia and there is no pneumothorax. No widened mediastinum. - Medical Decision Making This patient presents to the emergency department with a complaint of some chest pain that started just prior to presentation. On examination he has normal heart and lung sounds to auscultation. He does not appear in any respiratory or acute distress. EKG appears normal and does not have any morphology consistent with ST elevation myocardial infarction. Chest x-ray does not show any pneumonia, pleural effusions, pneumothorax, widened mediastinum, or any other acute process. Patient's labs have been mostly unremarkable including CBC, negative troponins x2, and metabolic panel except for some renal insufficiency. He has a history of some CKD but his renal insufficiency appears slightly normal than previous visits with a GFR of 40. The patient was reevaluated multiple times over multiple hours and is seen sleeping and/or resting comfortably. EKG is normal. There is some reproducible chest wall tenderness to palpation. He has had 2 - troponins. Patient had a recent negative stress test in July of this year, less than 2 months ago. Therefore, despite having a moderate heart and GARY score, the patient does not appear to require a medical admission at this time. He says that he has good outpatient follow-up with primary care and cardiology through [facility]. He is also been given a referral for one of our local cardiology groups as well. He will return to the emergency department with any worsening of his symptoms or with any acute distress. Critical Care Time: No Critical care attestation.: If time is entered above; I have spent that time in minutes in the direct care of this critically ill patient, excluding procedure time. ED Disposition Clinical Impression: Acute on chronic renal insufficiency Chest pain Qualifiers: Chest pain type: unspecified Qualified Code(s): R07.9 - Chest pain, unspecified Hypertension Qualifiers: Hypertension type: primary hypertension Qualified Code(s): I10 - Essential (p rimary) hypertension Disposition: 01 HOME / SELF CARE / HOMELESS Is pt being admited?: No Condition: Stable Instructions: Nonspecific Chest Pain, Adult, Hypertension (ED) Additional Instructions: Please follow-up with a primary care physician in the next few days. It is recommended that you follow-up with your [facility] plastics tooling engineer. I have also given you a referral for a local plastics tooling engineer, Dr. Bautista, that you have seen in the past while admitted to our hospital. I have given you a referral for a local car repairer, Dr. Weeks, to follow-up regarding your decreased kidney function. Because of this decreased kidney function, please avoid any NSAIDs such as Aleve, naproxen, Advil, ibuprofen. Take all of your medications as previously prescribed. Try to stay away from foods that are high in salt and caffeinated products. Keep a blood pressure log. Return to the emergency department with any worsening of your symptoms, new or concerning symptoms not addressed during this current emergency department visit, or with any acute distress. Referrals: Nathan Religious Education Director, Your [Other] - 2-3 Days MIS WEEKS MD [Staff Physician] - 2-3 Days PCP, Your [Other] - 2-3 Days DANAE BAUTISTA MD [Staff Physician] - 2-3 Days Time of Disposition: 02:49
[2021-10-06 23:02] LABS: Basophils % (Auto) 0.4 % (0.0-1.8); Eosinophils # (Auto) 0.1 K/mm3 (0.0-0.4); Eosinophils % (Auto) 1.1 % (0.0-4.3); Hematocrit 35.5 % (35.5-45.6); Hemoglobin 11.8 gm/dl (11.8-15.2); Lymphocytes # (Auto) 1.4 K/mm3 (1.2-5.4); Lymphocytes % (Auto) 23.2 % (13.4-35.0); Mean Corpuscular HGB Conc 33 % (32-34); Mean Corpuscular Volume 95 fl (84-94); Monocytes # (Auto) 0.6 K/mm3 (0.0-0.8); Monocytes % (Auto) 9.4 % (0.0-7.3); Platelet Count 235 K/mm3 (140-440); Red Blood Count 3.73 M/mm3 (3.65-5.03); Red Cell Distribution Width 14.7 % (13.2-15.2)
--- NOTE | 2021-10-06 23:14 | XRay Report ---
CHEST 2 VIEWS INDICATION / CLINICAL INFORMATION: Chest Pain. COMPARISON: 08/14/21 FINDINGS: SUPPORT DEVICES: None. HEART / MEDIASTINUM: Heart is normal size. Median sternotomy wires and CABG clips are unchanged. LUNGS / PLEURA: No significant pulmonary or pleural abnormality. No pneumothorax. ADDITIONAL FINDINGS: No significant additional findings. IMPRESSION: 1. No acute findings. Signer Name: Houston Dow MD Signed: 10/06/2021 11:10 PM Workstation Name: [id number]
[2021-10-06 23:20] LABS: Calcium 9.3 mg/dL (8.4-10.2)
[2021-10-07] MEDS ORDERED: ACETAMINOPHEN 325 MG TAB PO ONE (01:55)
[2021-10-07 03:36] VITALS: BP 154/90
--- NOTE | 2021-10-07 13:32 | Electrocardiograph Report ---
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
== END 2021-10-07 03:05 | disposition home or self-care (01) ==
LOC: ED 21:33
DX: R07.9 Chest pain, unspecified (principal); N28.9 Disorder of kidney and ureter, unspecified; I12.9 Hypertensive chronic kidney disease with stage 1 through stage 4 chronic kidney disease, or unspecified chronic kidney disease; J45.909 Unspecified asthma, uncomplicated; Z95.1 Presence of aortocoronary bypass graft; Z88.6 Allergy status to analgesic agent
CPT/HCPCS: 36415; 71046; 80048; 80320; 84484; 85025; 93005; G0480

== ENCOUNTER 2022-01-06 20:33 | Emergency (ER) | payer MEDICARE ==
--- NOTE | 2022-01-06 21:32 | Emergency Department Report ---
ED General Adult HPI - General Stated complaint: ETOH Time Seen by Provider: 01/06/22 21:21 Source: patient, EMS - History of Present Illness Initial comments: Patient is 76 years old male with history of chronic alcoholism, coronary artery disease, hypertension, gastric ulcer. Patient brought to the emergency room via EMS from a local neighborhood. Patient was found by his neighbor backyard. Never called the police and according to the EMS report the police gave him the option of going to prison or to the emergency room and he decided to come to the emergency room. In the emergency room patient looks intoxicated however he is alert and oriented x3 in no acute distress. Patient stated that he complaining of epigastric pain that has been going on for a while. He denied any nausea or vomiting. No hematemesis, hematochezia or melena. -: This evening Associated Symptoms: denies other symptoms - Related Data Home Medications Medication Instructions Recorded Confirmed Last Taken Gabapentin 300 mg PO HS 02/04/20 03/14/20 2 Weeks Ago ~08/01/21 Previous Rx's Medication Instructions Recorded Last Taken Type methOCARBAMOL [Robaxin TAB] 750 mg PO BID #30 05/30/20 2 Weeks Ago Rx ~08/01/21 Aspirin [Aspirin BABY CHEW TAB] 81 mg PO QDAY #30 tab.chew 08/17/21 Unknown Rx AtorvaSTATin [Lipitor] 40 mg PO QHS #30 tablet 08/17/21 Unknown Rx Clopidogrel [Plavix] 75 mg PO QDAY #30 tablet 08/17/21 Unknown Rx Ferrous Sulfate [Iron 325 MG] 1 tab PO DAILY #30 08/17/21 Unknown Rx Folic Acid [Folvite] 1 mg PO QDAY #30 tablet 08/17/21 Unknown Rx ISOSORBIDE MONOnitrate [Imdur ER] 30 mg PO QDAY #30 tablet 08/17/21 Unknown Rx Losartan [Cozaar] 100 mg PO QDAY #30 tablet 08/17/21 Unknown Rx Metoprolol Xl [Metoprolol 100 mg PO QDAY #30 08/17/21 Unknown Rx SUCCINATE ER TAB] Pantoprazole [Protonix TAB] 40 mg PO BID #60 tablet 08/17/21 Unknown Rx Rivaroxaban [Xarelto] 20 mg PO QDDIAB #30 tablet 08/17/21 Unknown Rx amLODIPine 10 mg PO DAILY #30 08/17/21 Unknown Rx hydrALAZINE [Apresoline TAB] 50 mg PO BID #60 tablet 08/17/21 Unknown Rx Tamsulosin [Flomax] 0.4 mg PO QDAY #10 cap 09/15/21 Unknown Rx amLODIPine [Norvasc] 10 mg PO DAILY #30 tab 09/23/21 Unknown Rx Allergies Allergy/AdvReac Type Severity Reaction Status Date / Time codeine Allergy Rash Verified 10/06/21 22:20 loratadine Allergy Unknown Verified 10/06/21 22:20 tramadol Allergy Rash Verified 10/06/21 22:20 ED Review of Systems ROS: Stated complaint: ETOH Other details as noted in HPI Comment: All other systems reviewed and negative Constitutional: denies: chills, fever Respiratory: denies: cough, shortness of breath, SOB with exertion Cardiovascular: chest pain. denies: palpitations, dyspnea on exertion Gastrointestinal: denies: abdominal pain, nausea, vomiting, diarrhea, consti pation, hematemesis, hematochezia Musculoskeletal: denies: back pain Neurological: denies: headache, weakness, numbness, paresthesias, confusion, abnormal gait ED Past Medical Hx - Past Medical History Previous Medical History?: Yes Hx Hypertension: Yes Hx Heart Attack/AMI: Yes Hx Renal Disease: Yes (CKD) Hx Asthma: Yes Additional medical history: gastric ulcer. ETOH abuse. CAD - Surgical History Past Surgical History?: Yes Hx Coronary Stent: Yes (x3) Hx Open Heart Surgery: Yes Additional Surgical History: Neck surgery, CABG - Social History Smoking Status: Never Smoker Substance Use Type: None - Medications Home Medications: Home Medications Medication Instructions Recorded Confirmed Last Taken Type Gabapentin 300 mg PO HS 02/04/20 03/14/20 2 Weeks Ago History ~08/01/21 methOCARBAMOL [Robaxin TAB] 750 mg PO BID #30 05/30/20 2 Weeks Ago Rx ~08/01/21 Aspirin [Aspirin BABY CHEW TAB] 81 mg PO QDAY #30 tab.chew 08/17/21 Unknown Rx AtorvaSTATin [Lipitor] 40 mg PO QHS #30 tablet 08/17/21 Unknown Rx Clopidogrel [Plavix] 75 mg PO QDAY #30 tablet 08/17/21 Unknown Rx Ferrous Sulfate [Iron 325 MG] 1 tab PO DAILY #30 08/17/21 Unknown Rx Folic Acid [Folvite] 1 mg PO QDAY #30 tablet 08/17/21 Unknown Rx ISOSORBIDE MONOnitrate [Imdur ER] 30 mg PO QDAY #30 tablet 08/17/21 Unknown Rx Losartan [Cozaar] 100 mg PO QDAY #30 tablet 08/17/21 Unknown Rx Metoprolol Xl [Metoprolol 100 mg PO QDAY #30 08/17/21 Unknown Rx SUCCINATE ER TAB] Pantoprazole [Protonix TAB] 40 mg PO BID #60 tablet 08/17/21 Unknown Rx Rivaroxaban [Xarelto] 20 mg PO QDDIAB #30 tablet 08/17/21 Unknown Rx amLODIPine 10 mg PO DAILY #30 08/17/21 Unknown Rx hydrALAZINE [Apresoline TAB] 50 mg PO BID #60 tablet 08/17/21 Unknown Rx Tamsulosin [Flomax] 0.4 mg PO QDAY #10 cap 09/15/21 Unknown Rx amLODIPine [Norvasc] 10 mg PO DAILY #30 tab 09/23/21 Unknown Rx ED Physical Exam - General General appearance: alert, in no apparent distress - Head Head exam: Present: atraumatic, normocephalic, normal inspection - Eye Eye exam: Present: normal appearance, PERRL - ENT ENT exam: Present: normal exam, normal orophraynx, mucous membranes moist - Neck Neck exam: Present: normal inspection, full ROM. Absent: tenderness, meningismus - Respiratory Respiratory exam: Present: normal lung sounds bilaterally - Cardiovascular Cardiovascular Exam: Present: regular rate, normal rhythm, normal heart sounds - GI/Abdominal GI/Abdominal exam: Present: soft, normal bowel sounds. Absent: distended, tenderness, guarding, rebound, rigid, organomegaly, mass, bruit, pulsatile mass, hernia - Extremities Exam Extremities exam: Present: normal inspection, full ROM, normal capillary refill. Absent: tenderness - Back Exam Back exam: Present: normal inspection, full ROM. Absent: CVA tenderness (R), CVA tenderness (L) - Neurological Exam Neurological exam: Present: alert, oriented X3, CN II-XII intact, normal gait, reflexes normal. Absent: motor sensory deficit - Psychiatric Psychiatric exam: Present: normal mood. Absent: homicidal ideation, suicidal ideation - Skin Skin exam: Present: warm, intact, normal color ED Course Vital Signs 01/06/22 01/07/22 01/07/22 21:31 03:11 03:54 Temperature 98.5 F Pulse Rate 80 77 Respiratory 16 Rate Blood Pressure 186/96 Blood Pressure 227/109 141/61 [Left] O2 Sat by Pulse 80 L Oximetry ED Medical Decision Making - Lab Data Result diagrams: 01/06/22 21:31 01/06/22 21:31 - EKG Data -: EKG Interpreted by Me EKG shows normal: sinus rhythm Rate: normal - EKG Data Interpretation: no acute changes - Radiology Data Radiology results: report reviewed - Medical Decision Making Patient is 76 years old male with history of chronic alcoholism, coronary artery disease, hypertension, gastric ulcer. Patient brought to the emergency room via EMS from a local neighborhood. Patient was found by his neighbor backyard. Never called the police and according to the EMS report the police gave him the option of going to prison or to the emergency room and he decided to come to the emergency room. In the emergency room patient looks intoxicated however he is alert and oriented x3 in no acute distress. Patient stated that he complaining of epigastric pain that has been going on for a while. He denied any nausea or vomiting. No hematemesis, hematochezia or melena. EKG is unremarkable. Labs reviewed and is unremarkable except for elevated alcohol level of 0.19. Patient blood pressure was high and given hydralazine 20 mg IV with significant improvement in his blood pressure. Patient is alert, oriented x3 in no acute distress. Patient is sober. Patient advised to follow- up with his primary care physician in the next 2 to 3 days and to return to the ER if he develop any new symptoms. Critical care attestation.: If time is entered above; I have spent that time in minutes in the direct care of this critically ill patient, excluding procedure time. ED Disposition Clinical Impression: Alcohol intoxication, Malignant hypertension Disposition: 01 HOME / SELF CARE / HOMELESS Is pt being admited?: No Condition: Stable Instructions: Hypertension (ED), Hypertension, Adult, [id number], Alcohol Intoxication Referrals: PRIMARY CARE, [Primary Care Provider] - 3-5 Days
[2022-01-06] MEDS ORDERED: METOPROLOL TARTRATE 5 MG/5 ML INJ IV ONE (22:15)
--- NOTE | 2022-01-06 22:33 | XRay Report ---
CHEST 1 VIEW INDICATION / CLINICAL INFORMATION: chest pain. COMPARISON: Chest x-ray 10/06/2021 FINDINGS: SUPPORT DEVICES: None. HEART / MEDIASTINUM: No significant abnormality. Prior sternotomy. LUNGS / PLEURA: No significant pulmonary or pleural abnormality. No pneumothorax. ADDITIONAL FINDINGS: No significant additional findings. IMPRESSION: 1. No active cardiopulmonary disease. Signer Name: Dwayne Bradley II, MD Signed: 01/06/2022 10:29 PM Workstation Name: [id number]
[2022-01-06 23:11] LABS: BUN/Creatinine Ratio 14; Blood Urea Nitrogen 17 mg/dL (9-20); Calcium 8.7 mg/dL (8.4-10.2); Hemolysis Index 6
[2022-01-06 23:31] LABS: INR 0.93 (0.87-1.13)
[2022-01-06 23:32] LABS: Partial Thromboplastin Time 30.3 Sec. (24.2-36.6)
[2022-01-06 23:51] LABS: Basophils % (Auto) 0.7 % (0.0-1.8); Eosinophils # (Auto) 0.1 K/mm3 (0.0-0.4); Eosinophils % (Auto) 0.9 % (0.0-4.3); Hematocrit 42.8 % (35.5-45.6); Hemoglobin 13.5 gm/dl (11.8-15.2); Lymphocytes # (Auto) 2.3 K/mm3 (1.2-5.4); Lymphocytes % (Auto) 38.7 % (13.4-35.0); Mean Corpuscular HGB Conc 32 % (32-34); Mean Corpuscular Volume 93 fl (84-94); Monocytes # (Auto) 0.4 K/mm3 (0.0-0.8); Monocytes % (Auto) 6.8 % (0.0-7.3); Platelet Count 211 K/mm3 (140-440); Red Blood Count 4.61 M/mm3 (3.65-5.03); Red Cell Distribution Width 13.8 % (13.2-15.2)
[2022-01-07] MEDS ORDERED: hydrALAZINE 20 MG/1 ML INJ IV ONE (02:46)
[2022-01-07 03:55] VITALS: BP 141/61
== END 2022-01-07 04:40 | disposition home or self-care (01) ==
LOC: ED 20:33
DX: F10.129 Alcohol abuse with intoxication, unspecified (principal); I10 Essential (primary) hypertension; J45.909 Unspecified asthma, uncomplicated; I25.10 Atherosclerotic heart disease of native coronary artery without angina pectoris; Z98.890 Other specified postprocedural states; Z88.5 Allergy status to narcotic agent; Z88.8 Allergy status to other drugs, medicaments and biological substances
CPT/HCPCS: 36415; 71045; 80048; 83690; 85025; 85610; 85730; 96374; 99284; J0360; 80320; G0480

== ENCOUNTER 2022-01-19 23:38 | Emergency (ER) | payer MEDICARE ==
--- NOTE | 2022-01-20 07:42 | Event Note ---
ED Screening Note ED Screening Note: reexam triaged in main as "eval p incarceration" pt denies being in half-way lives with brother here for cp rad to l arm hx cabg x 3 last year at [place] has emesis bag due to his nausea see hx in EMR This initial assessment/diagnostic orders/clinical plan/treatment(s) is/are subject to change based on patients health status, clinical progression and re- assessment by fellow clinical providers in the ED. Further treatment and workup at subsequent clinical providers discretion. Patient/guardian urged not to elope from the ED as their condition may be serious if not clinically assessed and managed. Initial orders include: nazanin hare- cp protocol
[2022-01-20 09:17] LABS: Basophils % (Auto) 0.5 % (0.0-1.8); Eosinophils % (Auto) 1.4 % (0.0-4.3); Lymphocytes % (Auto) 12.5 % (13.4-35.0); Monocytes % (Auto) 4.9 % (0.0-7.3)
[2022-01-20 09:22] LABS: Alanine Aminotransferase 19 units/L (7-56); Albumin 4.7 g/dL (3.9-5); BUN/Creatinine Ratio 19; Blood Urea Nitrogen 23 mg/dL (9-20); Calcium 9.8 mg/dL (8.4-10.2); Hemolysis Index 5
--- NOTE | 2022-01-20 09:24 | Emergency Department Report ---
ED Chest Pain HPI - General Chief Complaint: Chest Pain Stated Complaint: HEALTH CHECK Time Seen by Provider: 01/20/22 07:40 Source: patient, EMS Mode of arrival: Ambulatory Limitations: No Limitations - History of Present Illness Severity scale (0 -10): 0 - Related Data Home Medications Medication Instructions Recorded Confirmed Last Taken Gabapentin 300 mg PO HS 02/04/20 03/14/20 2 Weeks Ago ~08/01/21 Previous Rx's Medication Instructions Recorded Last Taken Type methOCARBAMOL [Robaxin TAB] 750 mg PO BID #30 05/30/20 2 Weeks Ago Rx ~08/01/21 Aspirin [Aspirin BABY CHEW TAB] 81 mg PO QDAY #30 tab.chew 08/17/21 Unknown Rx AtorvaSTATin [Lipitor] 40 mg PO QHS #30 tablet 08/17/21 Unknown Rx Clopidogrel [Plavix] 75 mg PO QDAY #30 tablet 08/17/21 Unknown Rx Ferrous Sulfate [Iron 325 MG] 1 tab PO DAILY #30 08/17/21 Unknown Rx Folic Acid [Folvite] 1 mg PO QDAY #30 tablet 08/17/21 Unknown Rx ISOSORBIDE MONOnitrate [Imdur ER] 30 mg PO QDAY #30 tablet 08/17/21 Unknown Rx Losartan [Cozaar] 100 mg PO QDAY #30 tablet 08/17/21 Unknown Rx Metoprolol Xl [Metoprolol 100 mg PO QDAY #30 08/17/21 Unknown Rx SUCCINATE ER TAB] Pantoprazole [Protonix TAB] 40 mg PO BID #60 tablet 08/17/21 Unknown Rx Rivaroxaban [Xarelto] 20 mg PO QDDIAB #30 tablet 08/17/21 Unknown Rx hydrALAZINE [Apresoline TAB] 50 mg PO BID #60 tablet 08/17/21 Unknown Rx Tamsulosin [Flomax] 0.4 mg PO QDAY #10 cap 09/15/21 Unknown Rx amLODIPine [Norvasc] 10 mg PO DAILY #30 tab 09/23/21 Unknown Rx Allergies Allergy/AdvReac Type Severity Reaction Status Date / Time codeine Allergy Rash Verified 10/06/21 22:20 loratadine Allergy Unknown Verified 10/06/21 22:20 tramadol Allergy Rash Verified 10/06/21 22:20 Heart Score - HEART Score History: Slightly suspicious EKG: Normal Age: < 45 Risk factors: > 3 risk factors or hx of atherosclerotic disease Troponin: < normal limit HEART Score: 2 - EKG Read Time Time EKG Completed: 06:00 EKG Read Time: 06:00 ED Review of Systems ROS: Stated complaint: HEALTH CHECK Other details as noted in HPI Comment: All other systems reviewed and negative ED Past Medical Hx - Past Medical History Previous Medical History?: Yes Hx Hypertension: Yes Hx Heart Attack/AMI: Yes Hx Renal Disease: Yes (CKD) Hx Asthma: Yes Additional medical history: gastric ulcer. ETOH abuse. CAD - Surgical History Past Surgical History?: Yes Hx Coronary Stent: Yes (x3) Hx Open Heart Surgery: Yes Additional Surgical History: Neck surgery, CABG - Family History Family history: no significant - Social History Smoking Status: Never Smoker Substance Use Type: None - Medications Home Medications: Home Medications Medication Instructions Recorded Confirmed Last Taken Type Gabapentin 300 mg PO HS 02/04/20 03/14/20 2 Weeks Ago History ~08/01/21 methOCARBAMOL [Robaxin TAB] 750 mg PO BID #30 05/30/20 2 Weeks Ago Rx ~08/01/21 Aspirin [Aspirin BABY CHEW TAB] 81 mg PO QDAY #30 tab.chew 08/17/21 Unknown Rx AtorvaSTATin [Lipitor] 40 mg PO QHS #30 tablet 08/17/21 Unknown Rx Clopidogrel [Plavix] 75 mg PO QDAY #30 tablet 08/17/21 Unknown Rx Ferrous Sulfate [Iron 325 MG] 1 tab PO DAILY #30 08/17/21 Unknown Rx Folic Acid [Folvite] 1 mg PO QDAY #30 tablet 08/17/21 Unknown Rx ISOSORBIDE MONOnitrate [Imdur ER] 30 mg PO QDAY #30 tablet 08/17/21 Unknown Rx Losartan [Cozaar] 100 mg PO QDAY #30 tablet 08/17/21 Unknown Rx Metoprolol Xl [Metoprolol 100 mg PO QDAY #30 08/17/21 Unknown Rx SUCCINATE ER TAB] Pantoprazole [Protonix TAB] 40 mg PO BID #60 tablet 08/17/21 Unknown Rx Rivaroxaban [Xarelto] 20 mg PO QDDIAB #30 tablet 08/17/21 Unknown Rx hydrALAZINE [Apresoline TAB] 50 mg PO BID #60 tablet 08/17/21 Unknown Rx Tamsulosin [Flomax] 0.4 mg PO QDAY #10 cap 09/15/21 Unknown Rx amLODIPine [Norvasc] 10 mg PO DAILY #30 tab 09/23/21 Unknown Rx ED Physical Exam - General Limitations: No Limitations General appearance: alert, in no apparent distress - Head Head exam: Present: atraumatic, normocephalic - Eye Eye exam: Present: normal appearance - ENT ENT exam: Present: mucous membranes moist - Neck Neck exam: Present: normal inspection - Respiratory Respiratory exam: Present: normal lung sounds bilaterally. Absent: respiratory distress - Cardiovascular Cardiovascular Exam: Present: regular rate, normal rhythm. Absent: systolic murmur, diastolic murmur, rubs, gallop - GI/Abdominal GI/Abdominal exam: Present: soft, normal bowel sounds - Rectal Rectal exam: Present: deferred - Extremities Exam Extremities exam: Present: normal inspection - Back Exam Back exam: Present: normal inspection - Neurological Exam Neurological exam: Present: alert, oriented X3 - Psychiatric Psychiatric exam: Present: normal affect, normal mood - Skin Skin exam: Present: warm, dry, intact, normal color. Absent: rash ED Course Vital Signs 01/19/22 23:40 Temperature 98.2 F Pulse Rate 71 Respiratory 18 Rate Blood Pressure 146/76 [Right] O2 Sat by Pulse 99 Oximetry SAURABH score - Saurabh Score Age > 65: (1) Yes Aspirin use within the Past 7 Days: (0) No 3 or more CAD Risk Factors: (1) Yes 2 or more Angina events in past 24 hrs: (1) Yes Known CAD with more than 50% Stenosis: (1) Yes Elevated Cardiac Markers: (0) No ST Deviation Greater than 0.5mm: (0) No SAURABH Score: 4 ED Medical Decision Making - Lab Data Result diagrams: 01/20/22 08:26 01/20/22 08:26 - EKG Data -: EKG Interpreted by [place] EKG shows normal: sinus rhythm Rate: normal - EKG Data When compared to previous EKG there are: no significant change Interpretation: no acute changes - Radiology Data Radiology results: report reviewed, image reviewed - Medical Decision Making Vital Signs 01/19/22 23:40 Temperature 98.2 F Pulse Rate 71 Respiratory 18 Rate Blood Pressure 146/76 [Right] O2 Sat by Pulse 99 Oximetry Lab Results 01/20/22 01/20/22 Range/Units 08:26 08:26 WBC 8.7 (4.5-11.0) K/mm3 RBC 4.70 (3.65-5.03) M/mm3 Hgb 14.0 (11.8-15.2) gm/dl Hct 43.5 (35.5-45.6) % MCV 93 (84-94) fl MCH 30 (28-32) pg MCHC 32 (32-34) % RDW 14.8 (13.2-15.2) % Plt Count 255 (140-440) K/mm3 Lymph % (Auto) 12.5 L (13.4-35.0) % [place] % (Auto) 4.9 (0.0-7.3) % Eos % (Auto) 1.4 (0.0-4.3) % Baso % (Auto) 0.5 (0.0-1.8) % Lymph # (Auto) 1.2 (1.2-5.4) K/mm3 [place] # (Auto) 0.4 (0.0-0.8) K/mm3 Eos # (Auto) 0.1 (0.0-0.4) K/mm3 Baso # (Auto) 0.1 (0.0-0.1) K/mm3 Seg Neutrophils % 80.7 H (40.0-70.0) % Seg Neutrophils # 6.9 (1.8-7.7) K/mm3 Sodium 138 (137-145) mmol/L Potassium 4.6 (3.6-5.0) mmol/L Chloride 98.2 (98-107) mmol/L Carbon Dioxide 24 (22-30) mmol/L Anion Gap 20 mmol/L BUN 23 H (9-20) mg/dL Creatinine 1.2 (0.8-1.3) mg/dL Estimated GFR > 60 ml/min BUN/Creatinine Ratio 19 % Glucose 114 H (75-100) mg/dL Calcium 9.8 (8.4-10.2) mg/dL Total Bilirubin 0.40 (0.1-1.2) mg/dL AST 27 (5-40) units/L ALT 19 (7-56) units/L Alkaline Phosphatase 72 (35-129) units/L Troponin T 0.010 (0.00-0.029) ng/mL Total Protein 8.6 H (6.3-8.2) g/dL Albumin 4.7 (3.9-5) g/dL Albumin/Globulin Ratio 1.2 % Lipase 42 (13-60) units/L Critical care attestation.: If time is entered above; I have spent that time in minutes in the direct care of this critically ill patient, excluding procedure time. ED Disposition Clinical Impression: Chest pain Disposition: 01 HOME / SELF CARE / HOMELESS Is pt being admited?: No Does the pt Need Aspirin: No Condition: Stable Instructions: Nonspecific Chest Pain, Adult Additional Instructions: follow up with pcp this week for recheck continue home meds Referrals: GRISELDA BLANCO MD [Staff Physician] - 3-5 Days Time of Disposition: 10:43
[2022-01-20 09:27] LABS: Basophils # (Auto) 0.1 K/mm3 (0.0-0.1); Eosinophils # (Auto) 0.1 K/mm3 (0.0-0.4); Hematocrit 43.5 % (35.5-45.6); Lymphocytes # (Auto) 1.2 K/mm3 (1.2-5.4); Mean Corpuscular HGB Conc 32 % (32-34); Mean Corpuscular Volume 93 fl (84-94); Monocytes # (Auto) 0.4 K/mm3 (0.0-0.8); Platelet Count 255 K/mm3 (140-440); Red Cell Distribution Width 14.8 % (13.2-15.2)
--- NOTE | 2022-01-20 10:13 | XRay Report ---
CHEST 2 VIEWS INDICATION: Chest Pain. COMPARISON: 01/06/2022 FINDINGS: Support devices: None. Heart: Within normal limits. Previous CABG changes are noted. Lungs/pleura: No acute air space or interstitial disease. No pleural abnormality or pneumothorax. Additional findings: None. IMPRESSION: No acute findings. Signer Name: Mando Gaitan Jr, MD Signed: 01/20/2022 9:25 AM Workstation Name: [id number]
[2022-01-20 10:43] LABS: Bilirubin,Urine NEG (Negative); Blood,Urine SM (Negative); Color,Urine Yellow (Yellow); Urobilinogen,Urine < 2.0 mg/dL (<2.0)
[2022-01-20 10:44] LABS: WBC,Urine > 182.0 /HPF (0.0-6.0)
[2022-01-20 10:59] LABS: Amphetamine Screen,Urine Negative; Benzodiazepines Screen,Urine Negative; Cannabinoid Screen,Urine Negative; Cocaine Screen,Urine Negative; Methadone Screen,Urine Negative; Opiate Screen,Urine Negative
[2022-01-20 11:14] VITALS: BP 150/100
--- NOTE | 2022-01-20 11:48 | Electrocardiograph Report ---
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
--- NOTE | 2022-01-21 10:39 | Electrocardiograph Report ---
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
== END 2022-01-20 11:14 | disposition home or self-care (01) ==
LOC: ED 23:38
DX: R07.9 Chest pain, unspecified (principal); I10 Essential (primary) hypertension; Z88.5 Allergy status to narcotic agent; J45.909 Unspecified asthma, uncomplicated
CPT/HCPCS: 36415; 71046; 80053; 80307; 81001; 83690; 84484; 85025; 93005; 93010; 99284

== ENCOUNTER 2022-06-22 21:07 | Emergency (ER) | payer MEDICARE ==
[2022-06-23 04:33] VITALS: BP 170/88
== END 2022-06-22 22:00 | disposition left against medical advice (07) ==
LOC: ED 21:07
DX: R52 Pain, unspecified (principal); Z53.21 Procedure and treatment not carried out due to patient leaving prior to being seen by health care provider